=== PATIENT | male | born 1945 | race Caucasian/White ===

== ENCOUNTER 2019-12-31 13:49 | Outpatient (CLI) | payer MEDICARE, SELFPAY ==
--- NOTE | ~2019-12-31 | XR_ITS ---
EXAMINATION: XR hip LT min 2V DATE: 12/31/2019 14:18 INDICATION: Left hip pain. TECHNIQUE: 2 views of left hip were obtained. COMPARISON: None. FINDINGS: Bone alignment is normal. No fracture. There is mild left hip osteoarthritis. IMPRESSION: 1. Mild left hip osteoarthritis. Reviewed, dictated and finalized at location A. ERECTOR
--- NOTE | ~2019-12-31 | XR_ITS ---
XR lumbar spine 2-3V DATE: 12/31/2019 14:18 INDICATION: Left low back pain for 4 days. No known injury. TECHNIQUE: AP, lateral and coned lateral lumbosacral views COMPARISON: 05/16/2017 lumbar spine FINDINGS: Diffuse idiopathic skeletal hyperostosis of the thoracic and lumbar spine. There is severe degenerative disc disease at L5-S1. No fracture or bone destruction or spondylolisthesis. The sacroiliac joints are normal. There is abdominal aortic calcification. IMPRESSION: Diffuse idiopathic skeletal hyperostosis Severe degenerative disc disease at L5-S1 Reviewed, dictated and finalized at location B. [employer]
== END 2019-12-31 13:50 | disposition home or self-care (01) ==
PROVIDERS: PCP Internal Medicine; Visit Provider Nurse Practitioner Family
DX: M25.552 Pain in left hip (principal); M54.5 Low back pain
CPT/HCPCS: 72100; 73502

== ENCOUNTER 2020-01-03 20:57 | Emergency (ER) | payer MEDICARE, SELFPAY ==
[2020-01-03 21:00] VITALS: BP 120/75; PULSE 105; RESP 20; TEMP 35.9; O2SAT 97
--- NOTE | 2020-01-03 21:40 | ED.NAVMDI ---
HPI - Nausea/Vomiting/Diarrhea General Stated complaint: flu? Time Seen by Provider: 01/03/20 21:36 Source: patient and RN notes reviewed Mode of arrival: ambulatory Limitations: no limitations History of Present Illness HPI Narrative: A 74 y/o male presents to the ED with N/V/D for the past 2 days. He states that every time he eats anything he either has N/V or diarrhea since early Saturday morning. He reports a decreased appetite, ABD bloating, and a fever which has since resolved. He notes that he has chronic back pain and that was started on Prednisone this week for a flare up of his spinal stenosis. He denies rectal bleeding, chills, CP, SOB, and any other medical complaints at this time. MD elicited complaint: nausea, vomiting and diarrhea Onset (ago): day(s) (2) Associated nausea: Yes Exacerbating factors: eating Context: new medication (Prednisone) Associated symptoms: fever/chills (fevers resolved, no chills), loss of appetite, bloating and other (chronic back apin) Related Data Allergies Allergy/AdvReac Type Severity Reaction Status Date / Time No Known Allergies Allergy Unverified 01/05/15 16:04 Review of Systems Review of Systems: All systems reviewed & are unremarkable except as noted in HPI and below Constitutional: Constitutional: Denies chills, Denies fatigue, Reports fever(s) (resolved), Denies headache(s), Denies night sweats and Reports poor appetite Eyes: Eyes: Denies change in vision, Denies loss of vision and Denies other visual disturbances ENT: Denies headache(s), Denies hoarseness, Denies epistaxis, Denies nasal congestion and Denies sore throat Cardiovascular: Cardiovascular: Denies chest pain, Denies leg edema, Denies palpitations and Denies dyspnea Respiratory: Respiratory: Denies cough, Denies dyspnea and Denies wheezing Gastrointestinal: Gastrointestinal: Denies abdominal pain, Reports bloating, Denies hematochezia, Reports diarrhea, Reports nausea and Reports vomiting Genitourinary: Genitourinary: Denies hematuria, Denies dysuria and Denies urinary frequency Musculoskeletal: Musculoskeletal: Denies abnormal gait, Reports back pain (chronic), Denies deformity, Denies joint swelling, Denies muscle weakness and Denies numbness Integumentary/Breasts: Skin/Breast: Denies rash, Denies unusual bruising and Denies wounds Neurologic: Denies abnormal gait, Denies headache(s), Denies focal weakness, Denies loss of vision and Denies numbness Psychiatric: Psychiatric: Reports no additional psychiatric complaints Endocrine: Endocrine: Denies fatigue and Denies palpitations Hematologic/Lymphatic: Hematologic/Lymphatic: Denies easy bleeding and Denies easy bruising Allergic/Immunologic: Allergic/Immunologic: Denies wheezing PMFSH Past Medical History Medical History (Updated 01/03/20 @ 23:50 by Kam Salcido MD) Arthritis H/O: HTN (hypertension) History of inguinal hernia History of kidney stones Spinal stenosis Surgical History Surgical History (Updated 01/03/20 @ 21:41 by Raphael Johnson) History of inguinal hernia repair Family History Family History Mother Carcinoma of colon Other Diabetes mellitus Social History Social History Smoking status: Never smoker Alcohol intake: never Gender identity (if verbalized by the patient): Male Comments PCP: Dr. Hurt. Exam Const: General: healthy appearing, no acute distress and well developed Nutritional Appearance: well nourished Orientation/consciousness: patient oriented x3 (alert) and Other orientation findings (Alert) Limitations: no limitations HENMT: Head: normocephalic and atraumatic Ears: external ears normal General nose exam: No nasal discharge present and no epistaxis Face and sinus: face symmetric Mouth: Yes lip normal, Yes tongue normal and Yes moist mucous membranes Throat: other (No exudate, no erythema) Eyes: Conjunctivae:
[2020-01-03] MEDS: KETOROLAC 15 MG/ML VIAL (*BKC) IV PUSH (22:24)
[2020-01-03] MEDS: LACTATED RINGERS 1,000 ML 999 ML IV CONT ×2 (22:24→22:55)
[2020-01-03 22:27] LABS: Alanine Aminotransferase 49 U/L (4-50); Albumin Level 4.2 g/dL (3.5-5.1); Alkaline Phosphatase 90 U/L (38-126); Aspartate Amino Transferase 30 U/L (17-59); Bilirubin,Total 0.6 mg/dL (0.2-1.3); Blood Urea Nitrogen 39 mg/dL (9-20); Calcium 9.9 mg/dL (8.4-10.2); Carbon Dioxide 24 mmol/L (22-30); Chloride 99 mmol/L (98-107); Estimated Glomerular Filt Rate > 60; Glucose 113 mg/dL (75-110); Lipase 38 U/L (23-300); Potassium 3.9 mmol/L (3.4-5.0); Sodium 140 mmol/L (137-145)
[2020-01-03 22:29] LABS: Add Urine Microscopic? NO; Appearance Urine Clear (Clear); Bilirubin Urine Negative (Negative); Blood Urine Negative (Negative); Color Urine Yellow (Yellow); Glucose Urine UA Negative (Negative); Ketones Urine Negative (Negative); Leukocyte Esterase Ur Negative LEU/UL (Negative); Nitrate Urine Negative (Negative); Protein Urine Negative (Negative); Urobilinogen Urine Negative mg/dL (<2.0)
[2020-01-03 22:30] LABS: Specific Grav Ur 1.032 (1.001-1.035)
[2020-01-03 22:31] LABS: Basophils Percent Auto 0.3 % (0.2-1.2); Hematocrit 53.4 % (42.0-52.0); Hemoglobin 17.4 g/dL (14.0-18.0); Immature Granulocyte Absolute 0.04 K/mm3 (0.00-0.031); Immature Granulocyte Percent A 0.3 % (0-0.5); Lymphocytes Absolute Auto 1.28 K/mm3 (0.9-3.2); Lymphocytes Percent Auto 11.1 % (18.3-44.2); Mean Corpuscular HGB Conc 32.6 g/dl (32-36); Mean Corpuscular Hemoglobin 29.8 pg (26-34); Mean Corpuscular Volume 91.6 fl (80-100); Mean Platelet Volume 11.1 fl (7.4-10.4); Monocytes Absolute Auto 1.4 K/mm3 (0.1-0.6); Neutrophils Absolute Auto 8.8 K/mm3 (1.3-6.7); Neutrophils Percent Auto 76.3 % (45.5-73.1); Platelet Count Result 240 k/mm3 (150-375); Red Blood Count 5.83 M/mm3 (4.6-6.20); Red Cell Distribution Width 13.6 % (11.5-14.5); White Blood Count 11.5 K/mm3 (4.5-10.0)
[2020-01-03] MEDS: methocarbamoL 750 MG TABLET PO (22:55)
[2020-01-04] VITALS: BP 137/84; PULSE 73; RESP 15; O2SAT 96
== END 2020-01-04 | disposition home or self-care (01) ==
PROVIDERS: Emergency Provider Emergency Medicine; PCP Internal Medicine
DX: R19.7 Diarrhea, unspecified (principal); M54.9 Dorsalgia, unspecified; G89.29 Other chronic pain; M19.90 Unspecified osteoarthritis, unspecified site; I10 Essential (primary) hypertension; Z87.442 Personal history of urinary calculi
CPT/HCPCS: 36415; 80053; 81003; 83690; 85025; 87804; 96361; 96374; 99284; A9270; J1885; J7120

== ENCOUNTER 2020-02-26 13:10 | Emergency (ER) | payer MEDICARE, SELFPAY ==
--- NOTE | ~2020-02-26 | CT_ITS ---
EXAMINATION: CT brain wo con DATE: 02/26/2020 14:09 INDICATION: Left face numbness. Left arm weakness. TECHNIQUE: Computed tomography (CT) of the head was performed without intravenous contrast. The mA wa s adjusted according to patient size. Iterative reconstruction technique was employed. The dose-lengt h product was 529.67 mGy-cm. COMPARISON: None FINDINGS: There is no intracranial hemorrhage, acute infarction, or abnormal intracranial mass lesion . The ventricles are normal in size. The orbits are normal. There is mild mucosal thickening in the p aranasal sinuses. The mastoid air cells are normal. IMPRESSION: 1. Normal brain. Reviewed, dictated and finalized at location A. IMPRESSION: 1. Normal brain.
[2020-02-26 13:25] VITALS: BP 161/84; PULSE 60; RESP 16; TEMP 36.7; O2SAT 97
--- NOTE | 2020-02-26 13:31 | ED.NEUROSD ---
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 This was about 10:00 a.m. he states that he also noted at that time that his left upper lip was numb as well. Symptoms persist in his lip in his arm however they are to a lesser degree now. Other than a minor head injury a week ago and a mild feeling of being a little light-headed when he stands, he has had no headache, nausea, vomiting, diarrhea, dysuria, chest pain, shortness of breath, diaphoresis. Onset (ago): hour(s) (4) Location: left face and left arm History of same: No Severity: mild Quality: weak (left hand), numb (left arm and lip) and tingling (left arm) Relieving factors: none Exacerbating factors: none Context: sudden onset On Anticoagulants: No Associated symptoms: denies other symptoms Treatments Prior to Arrival: none Related Data Home Medications Medication Instructions Recorded Confirmed celecoxib 100 mg PO BID 02/26/20 02/26/20 losartan 100 mg PO DAILY 02/26/20 02/26/20 testosterone 2 packet TOPICAL DAILY 02/26/20 02/26/20 Allergies Allergy/AdvReac Type Severity Reaction Status Date / Time No Known Allergies Allergy Unverified 01/05/15 16:04 Review of Systems Constitutional: Constitutional: Denies chills, Denies fever(s) and Denies weakness Eyes: Eyes: Denies change in vision and Denies photophobia ENT: Denies dysphagia, Denies nasal congestion and Denies sore throat Cardiovascular: Cardiovascular: Denies chest pain, Denies rapid heart rate, Denies radiating jaw, neck or arm pain and Denies slow heart rate Respiratory: Respiratory: Denies cough, Denies dyspnea and Denies wheezing Gastrointestinal: Gastrointestinal: Denies abdominal pain, Denies diarrhea, Denies nausea and Denies vomiting Genitourinary: Genitourinary: Denies hematuria, Denies dysuria and Denies urinary frequency Musculoskeletal: Musculoskeletal: Reports back pain, Denies arthralgias, Denies joint swelling and Denies muscle cramps Integumentary/Breasts: Skin/Breast: Denies pruritus, Denies erythema and Denies rash Neurologic: Denies vertigo, Reports dizziness and Denies syncope Psychiatric: Psychiatric: Denies anxiety and Denies depression Endocrine: Endocrine: Denies polydipsia and Denies polyuria Hematologic/Lymphatic: Hematologic/Lymphatic: Denies easy bleeding and Denies easy bruising Allergic/Immunologic: Allergic/Immunologic: Denies lip swelling and Denies wheezing PMFSH Past Medical History Medical History Arthritis H/O: HTN (hypertension) History of inguinal hernia History of kidney stones Spinal stenosis Surgical History Surgical History History of inguinal hernia repair Social History Social History Smoking status: Never smoker Alcohol intake: never Gender identity (if verbalized by the patient): Male Exam Const: General: healthy appearing, no acute distress and alert Orientation/consciousness: patient oriented x3 HENMT: Ears: external ears normal, TM's normal bilaterally and EAC's normal Mouth: Yes Normal oral and palatal mucosa present and Yes moist mucous membranes Throat: posterior oropharynx normal and uvula midline Eyes: Conjunctivae: conjunctivae normal Pupils: Equal, round and reactive pupils present EOM: EOMs intact bilaterally Resp: Effort & Inspection: normal respiratory effort and not labored Auscultation: clear to auscultation bilatera
--- NOTE | 2020-02-26 13:46 | ECG_ITS ---
Measurements Intervals [place] Rate: 53 P: 43 DE: 184 QRS: 5 QRSD: 104 T: -11 QT: 426 QTc: 400 Interpretive Statements SINUS BRADYCARDIA EARLY PRECORDIAL R/S TRANSITION VOLTAGE CRITERIA FOR LVH BORDERLINE T WAVE ABNORMALITY- INF/LAT LEADS BASELINE WANDER- II, III BORDERLINE ECG Electronically Signed On 02-26-2020 13:54:22 CDT by Tera Olivarez D.O.
[2020-02-26 14:05] LABS: Basophils Absolute Auto 0.06 K/mm3 (0.00-0.10); Basophils Percent Auto 0.8 % (0.0-1.0); Eosinophils Absolute Auto 0.13 K/mm3 (0.02-0.50); Eosinophils Percent Auto 1.7 % (1.0-6.0); Hematocrit 45.9 % (37.0-46.0); Hemoglobin 15.8 g/dL (12.4-15.3); Immature Granulocyte Absolute 0.02 K/mm3 (0.00-0.00); Immature Granulocyte Percent A 0.3 % (0.0-0.0); Lymphocytes Percent Auto 23.5 % (18.0-42.0); Mean Corpuscular HGB Conc 34.4 g/dL (32.0-36.0); Mean Corpuscular Hemoglobin 31.1 pg (27.0-31.0); Mean Corpuscular Volume 90.4 fL (78.0-102.0); Mean Platelet Volume 10.7 fl (8.7-11.0); Monocytes Absolute Auto 0.55 K/mm3 (0.10-0.90); Monocytes Percent Auto 7.2 % (2.0-11.0); Neutrophils Absolute Auto 5.1 K/mm3 (1.7-7.2); Neutrophils Percent Auto 66.5 % (50.0-70.0); Platelet Count Result 190 K/mm3 (150-420); Red Blood Count 5.08 M/mm3 (4.70-6.10); Red Cell Distribution Width 13.5 % (11.6-14.4); White Blood Count 7.7 K/mm3 (4.8-10.8)
[2020-02-26 14:20] LABS: Partial Thromboplastin Time 29.1 SEC (22.3-31.6); Prothrombin Time 10.2 Seconds (9.64-11.0)
[2020-02-26] MEDS: SODIUM CHLORIDE 0.9% IV 1,000 ML 999 ML IV CONT (14:25)
[2020-02-26 14:26] LABS: Alanine Aminotransferase 41 U/L (16-63); Albumin Level 3.7 g/dL (3.4-5.0); Alkaline Phosphatase 106 U/L (46-116); Aspartate Amino Transferase 25 U/L (15-37); Bilirubin,Total 0.6 mg/dL (0.00-1.00); Blood Urea Nitrogen 11 mg/dL (7-18); Calcium 9.8 mg/dL (8.5-10.1); Carbon Dioxide 27 mmol/L (21-32); Chloride 107 mmol/L (98-108); Estimated CRCL calculation 79 ml/min; Estimated Glomerular Filt Rate > 60; Glucose 122 mg/dL (70-99); Osmolality Calculated 296 mOsm/kg (285-295); Sodium 143 mmol/L (136-145); Total Protein 6.8 g/dL (6.4-8.2)
[2020-02-26 14:32] VITALS: BP 146/74; PULSE 56; RESP 22; O2SAT 96
[2020-02-26 14:38] LABS: Troponin I < 0.02 ng/mL (0.00-0.056)
[2020-02-26 14:48] LABS: Add Urine Microscopic? NO; Appearance Urine Clear (Clear); Bilirubin Urine Negative (Negative); Blood Urine Negative (Negative); Color Urine Yellow (Yellow); Glucose Urine UA Negative (Negative); Ketones Urine Negative (Negative); Leukocyte Esterase Ur Negative LEU/UL (Negative); Nitrate Urine Negative (Negative); Protein Urine Negative (Negative)
--- NOTE | 2020-02-26 15:17 | PC.NURSE ---
Pt requests [facility] in [place] for possible transfer. call placed to [facility].
[2020-02-26] MEDS: ASPIRIN 81 MG CHEWABLE TABLET 324 MG PO (15:40)
[2020-02-26 16:06] VITALS: BP 156/88; PULSE 58; RESP 20; O2SAT 99
--- NOTE | 2020-02-26 16:07 | PC.NURSE ---
Awaiting room assignment from [facility]. pt aware.
[2020-02-26 16:55] VITALS: BP 148/87; PULSE 65; RESP 18; O2SAT 98
== END 2020-02-26 17:32 | disposition short-term general hospital (02) ==
PROVIDERS: Emergency Provider Emergency Medicine; PCP Internal Medicine
DX: I63.9 Cerebral infarction, unspecified (principal); I10 Essential (primary) hypertension
CPT/HCPCS: 36415; 70450; 80053; 81003; 84484; 85025; 85610; 85730; 93005; 96360; 99285; A9270; J7030

== ENCOUNTER 2020-06-25 13:31 | Outpatient (CLI) | payer MEDICARE, SELFPAY ==
--- NOTE | ~2020-06-25 | XR_ITS ---
EXAMINATION: XR chest 2V 06/25/2020 14:05 INDICATION: Cough PROCEDURE: 2 view chest COMPARISON: 01/03/2018 FINDINGS: The lungs are clear. The cardiomediastinal silhouette is within normal limits. There are no pleural effusions. There is no pneumothorax suspected. IMPRESSION: 1: NO ACUTE CARDIOPULMONARY DISEASE. Reviewed, dictated and finalized at location A.
== END 2020-06-25 13:32 | disposition home or self-care (01) ==
LOC: CHSIMG 13:32
PROVIDERS: PCP Internal Medicine; Visit Provider Internal Medicine
DX: R05 Cough (principal)
CPT/HCPCS: 71046

== ENCOUNTER 2020-09-12 07:44 | Outpatient (CLI) | payer MEDICARE, SELFPAY ==
--- NOTE | ~2020-09-12 | CT_ITS ---
EXAMINATION: CT abdomen pelvis wo con DATE: 09/12/2020 08:00 INDICATION: Renal cyst. Adrenal adenoma. TECHNIQUE: Computed tomography (CT) of the abdomen and pelvis was performed without intravenous contr ast. Automated exposure control and iterative reconstruction technique were employed. The dose-length product was 1456.49 mGy-cm. COMPARISON: CT abdomen 08/14/2018 FINDINGS: The visualized portions of the lung bases demonstrate mild atelectasis. There are chronic s ubpleural bands in the lower lobes. There is mild bronchiectasis in right lower lobe. No pleural effu hiral. The heart size is normal. No pericardial effusion. There is a 14 mm cyst in the liver. The gall bladder is normal. Calcifications in the spleen are consistent with old granulomatous disease. The pa ncreas and left adrenal gland are normal. There is a 1.8 cm mass in right adrenal gland measuring low -attenuation without change in size, consistent with an adenoma. There is an 11.3 cm cyst in right ki dney, stable from 08/14/2018. There is a 2.9 cm cyst in right kidney. There is a 12 mm cyst in left ki dney. There is no urolithiasis. The prostate is moderately enlarged. There are bilateral inguinal her nias containing fat. There is diverticulosis of the colon without evidence of diverticulitis. There a re dilated loops of small bowel without focal transition point, likely adynamic ileus. The appendix i s normal. There is trace pelvic ascites. There are no pathologically enlarged lymph nodes. There is s evere lower lumbar spondylosis. IMPRESSION: 1. Stable 1.8 cm right adrenal adenoma. 2. Benign cysts in the kidneys. Reviewed, dictated and finalized at location A.
== END 2020-09-12 07:45 | disposition home or self-care (01) ==
LOC: CHSIMG 07:46
PROVIDERS: PCP Internal Medicine; Visit Provider Urology
DX: D35.00 Benign neoplasm of unspecified adrenal gland (principal); N28.1 Cyst of kidney, acquired
CPT/HCPCS: 74176

== ENCOUNTER 2023-01-21 15:48 | Outpatient (RCR) | payer MEDICARE, SELFPAY ==
--- NOTE | 2023-01-21 16:54 | PTOPEVAL1 ---
Assessment and note entered by Rina Naylor DPT Evaluation Information Assessment Status Evaluation Diagnosis L knee pain, B hip pain Onset 12/12/22 Subjective Information Patient reports he has L knee pain that has been going on for the last few months. He does not recall an injury. He also reports that he has B hip and low back pain but reports the L knee pain is his biggest concern. He reports that he is supposed to use a cane but usually does not use it at home but does bring it with him out of the house. Patient reports he has difficulty with prolonged walking, stair navigation, and getting up out of chairs. Patient is retired but has to care for his home and yard and also works on his vehicles. RTMD 01/21/23 Reported Pain Level Pain Score 1: Self Report Assessment PT Clinical Summary Patient is a 77 year old male who presents to PT with L knee pain and B hip pain with knee pain his biggest compliant. Patient demonstrated decreased B LE strength, decreased B LE hip flexor flexibility and decreased mobility of the L tibiofemoral joint impairing his ability to perform yard work, ambulate prolonged periods and navigate stairs. He would benefit from skilled PT to address impairments and return to PLOF. Plan of Care Interventions Electrical Stimulation,Gait Training,Hot Pack/Cold Pack,Manual Therapy,Mechanical Traction,Neuro Re- education,Patient/Caregiver Educati,Therapeutic Activities,Therapeutic Exercise,Self-Care/Home Management PT Services Indicated Yes Treatment Frequency and 2x weekly for 12 visits Duration These treatments will address the objective and functional deficits as defined above. The patient will be advanced safely and appropriately in order for the patient to progress towards his/her prior level of function. Additional exercises will be introduced and as well as a comprehensive home exercise program upon discharge, if needed, ?to ensure carryover of functional gains achieved in the clinic. This treatment plan has been reviewed and agreement upon by the patient.
== END 2023-02-12 08:48 | disposition home or self-care (01) ==
LOC: CHSPT 15:48
PROVIDERS: PCP Internal Medicine; Visit Provider Physician Assistant Surgical
DX: M17.12 Unilateral primary osteoarthritis, left knee (principal); M16.0 Bilateral primary osteoarthritis of hip
CPT/HCPCS: 97014; 97110; 97140; 97161; 97530; G0283

== ENCOUNTER 2023-01-21 20:06 | Outpatient (CLI) | payer MEDICARE, SELFPAY ==
--- NOTE | 2023-01-27 14:33 | WPDSLEEPSTUD ---
Sleep Study Date of Study: 01/21/23 Ordering Provider: BRIANA Deng Interpreting Physician: Mitzy Sher MD Sleep Study Type: CPAP Titration Height: 1.85 m Weight: 117.934 kg Body Mass Index: 34.2 Neck Circumference (inches): 19 [place]: 11 Reason for Sleep Study Obstructive sleep apnea; he complaints of waking too early in the morning with excessive daytime sleepiness. *11/16/2013 Split night PSG AHI 7, * 12/2013 CPAP titration 2013 with optimal pressure 16 cm CPAP. BMI 34.3. Sleep History Luis Mary is a 77-year-old man with complaints of falling asleep during the day, falling asleep involuntarily and even rarely while driving. He does not awaken from sleep feeling short of breath. he says that he wakes up too early in the morning and wishes that he could sleep longer. While he is asleep he sleeps soundly without awakenings. He does not have nocturia. He does not always awaken feeling refreshed. Infrequently, he takes zolpidem 10 mg for insomnia. He is tired during the day. He takes multiple naps during the day. He does not awaken at night with heartburn, belching or coughing. He does not wake up gasping for breath at night. He does not sweat excessively at night. He does not have loss of muscle tone with strong emotion. He does not feel paralyzed on waking or falling asleep. He does not have vivid dreamlike scenes on waking or falling asleep. He does not feel afraid to go to sleep. He rarely has nightmares. He occasionally remembers his dreams. He occasionally has racing thoughts. He does not feel sad or depressed. He rarely has anxiety. He rarely has muscular tension. He does not notice parts of his body jerking. He does not kick at night. He occasionally has crawling and aching feelings in his legs. He rarely has any kind of leg pain at night. He does not have morning jaw pain. He rarely grinds his teeth during sleep. He frequently is bothered by pain during the day. He rarely is awakened by pain at night. He frequently wakes up feeling stiff in the morning. He occasionally wakes up with sore achy muscles. He frequently wakes up with pain in the spine. He has fatigue and insomnia. Normal bedtime is midnight any awaken sometime between 6 and 7:00 a.m.. The patient takes multiple naps in the day. He is usually drowsy in the morning for 3 hours or longer. He feels better in the evening compared to other times of day. Habits: Never used tobacco. Caffeine 1 - 2 cups per day. No alcohol or recreational substances. [facility] Past Medical History Medical History Arthritis Essential hypertension History of inguinal hernia History of kidney stones Hyperlipidemia Obesity Obstructive sleep apnea Spinal stenosis Surgical History Surgical History History of dental surgery History of inguinal hernia repair Family History Family History Mother Carcinoma of colon Other Diabetes mellitus Social History Social History Smoking status: Never smoker Alcohol intake: never Lack of Transportation: No Lack of Food: Never True Current Housing: I Have Housing Concerned About Future Housing: No Difficulty Paying Gas/Electric Bills: No Difficulty Paying for Meds: No Currently Unemployed: No Education: High School Diploma/GED Difficulty w/ Childcare or Family Care: No Gender identity (if verbalized by the patient): Male Medications Home Medications Medication Instructions Recorded Confirmed Type celecoxib 100 mg capsule 100 mg PO BID 02/26/20 12/12/22 History losartan 100 mg tablet 100 mg PO DAILY 02/26/20 12/12/22 History atorvastatin 20 mg tablet 20 mg PO DAILY 10/15/22 12/12/22 History hydrochlorothiazide 12.5 mg tablet 12.5 mg PO DAILY
[2023-01-27 16:10] VITALS: BMI 34.2
== END 2023-01-22 06:54 | disposition home or self-care (01) ==
PROVIDERS: PCP Internal Medicine; Visit Provider Physician Assistant
DX: G47.33 Obstructive sleep apnea (adult) (pediatric) (principal); Z68.34 Body mass index [BMI] 34.0-34.9, adult
CPT/HCPCS: 95811

== ENCOUNTER 2023-08-19 09:28 | Outpatient (RCR) | payer MEDICARE, SELFPAY ==
--- NOTE | 2023-08-19 10:16 | OPREHPOC ---
Outpatient Therapy Plan of Care This is a Multidisciplinary Plan of Care that may contain components documented by all disciplines (PT, OT, and ST.) PT Problem 1 PT Problem #1 Knowledge Deficit PT Goal 1 Goal Pt. will be independent with a HEP addressing mobility and core strength Target Visit 2 PT Problem 2 PT Problem #2 Pain PT Goal 1 Goal Pt. will reduce pain to 2/10 at worst with prolonged standing activities. Target Visit 12 PT Problem 3 PT Problem #3 Impaired Gait PT Goal 1 Goal Pt. will ambulate with eqal right and left stance time over level surface. Target Visit 12 PT Problem 4 PT Problem #4 Impaired Functional Mobil PT Goal 1 Goal Pt. will improve his Oswestry score by 20% or greater indicating improved overall function. Target Visit 12
--- NOTE | 2023-08-19 10:17 | PTOPEVAL1 ---
Assessment and note entered by Nabil Palacios Evaluation Information Assessment Status Evaluation Diagnosis low back pain Onset 06/05/23 Subjective Information Pt. reports that he underwent knee surgery in May . He reports that since surgery he has had worsening knee and back pain. He describes pain in the area of the left PSIS. he has had xray that revealed spinal stenosis. He can develop pain on the right side of the low back on occasion . He has taken a steroid dose pack with no relief . He reports that pain is worsened with walking and standing. He reports that he can only stand for 5-10 minute before pain begins to increase and forces him to sit. He reports that he enjoys yard work but cannot complete his work due to pain . he reports that his goal is to decrease his back pain. Reported Pain Level Pain Score 2: Self Report Assessment PT Clinical Summary Pt. is a 77 year old male who enters the clinic with low back pain secondary to spinal stenosis. He presents with functional decline, pain, impaired gait, impaired postural awareness, as well as abdominal and proximal l.e. weakness. Continued skilled PT is indicated in order to improve these areas to allow for improved comfort and efficiency with all IADL's. Plan of Care Interventions Electrical Stimulation,Hot Pack/Cold Pack,Manual Therapy,Neuro Re-education,Patient/Caregiver Educati,Therapeutic Activities,Therapeutic Exercise PT Services Indicated Yes Treatment Frequency and 3x/week x 12 visits Duration These treatments will address the objective and functional deficits as defined above. The patient will be advanced safely and appropriately in order for the patient to progress towards his/her prior level of function. Additional exercises will be introduced and as well as a comprehensive home exercise program upon discharge, if needed, ?to ensure carryover of functional gains achieved in the clinic. This treatment plan has been reviewed and agreement upon by the patient.
== END 2023-09-06 23:59 | disposition home or self-care (01) ==
LOC: CHSPT 09:28
DX: M54.50 Low back pain, unspecified (principal); M48.062 Spinal stenosis, lumbar region with neurogenic claudication; M51.37 Other intervertebral disc degeneration, lumbosacral region; M54.16 Radiculopathy, lumbar region; Z68.34 Body mass index [BMI] 34.0-34.9, adult
CPT/HCPCS: 97014; 97110; 97140; 97161; G0283

== ENCOUNTER 2024-06-24 16:49 | Emergency (ER) | payer MEDICARE, SELFPAY ==
[2024-06-24] VITALS (17 sets, daily range): BP systolic 141–177; BP diastolic 73–88; PULSE 86; RESP 16; TEMP 36.5; O2SAT 93–100
--- NOTE | ~2024-06-24 | CT_ITS ---
EXAMINATION: CT abdomen pelvis wo con DATE: 06/24/2024 19:01 INDICATION: Left flank pain and left lower quadrant pain TECHNIQUE: Computed tomography (CT) of the abdomen and pelvis was performed without intravenous contr ast. Automated exposure control and iterative reconstruction technique were employed. The dose-length product was 1488.44 mGy-cm. COMPARISON: 09/12/2020 FINDINGS: Mild dependent atelectasis in bilateral lower lobes. Heart size is normal. Atherosclerotic coronary a rtery calcifications. No pericardial or pleural effusion. 1.2 cm cyst in the left hepatic lobe. Gallb ladder, pancreas and left adrenal gland are normal. Slight increase in size of a now 2.2 x 1.3 cm low -attenuation right adrenal adenoma. Splenic calcification consistent with old granulomatous disease. Bilateral renal cysts including an 11.3 cm cyst in the right kidney. No urolithiasis or hydronephrosi s. Bladder is decompressed. Prostatomegaly. Moderate-sized bilateral fat-containing inguinal hernias. Extensive diverticulosis without adjacent inflammatory change to suggest diverticulitis. Small bowel and appendix are normal. No free intraperitoneal gas or fluid. No pathologically enlarged abdominal or pelvic lymphadenopathy. Severe lower lumbar spondylosis. There are bridging osteophytes at multipl e levels consistent with diffuse idiopathic skeletal hyperostosis (DISH). IMPRESSION: 1. No urolithiasis or acute intra-abdominal/pelvic process. 2. Extensive diverticulosis. 3. Prostatomegaly. 4. Moderate-sized bilateral fat-containing inguinal hernias. Reviewed, dictated and finalized at location A.
--- NOTE | 2024-06-24 18:14 | ED.BACK ---
HPI - Back Pain/Injury General Chief Complaint: Back Pain/Injury <ANA Palmer Last Filed: 06/24/24 18:22> Stated Complaint: n/v, back pain x 2 years <ANA Palmer Last Filed: 06/24/24 18:22> Time Seen by Provider: 06/24/24 18:14 <ANA Palmer Last Filed: 06/24/24 18:22> Focused HPI: Patient is a 78 yo/o male who presents to the ED with c/o L flank and L sided abdominal pain. Patient reports he has frequent pain in his L lower back related to spinal stenosis. Pain began radiating around to her L lower/lateral abdomen today which is not normal for pain. Pain has been severe, in intermittent waves. He c/o nausea associated with the pain, vomiting. Hx of kidney stone but unsure if pain was similar. Has not taken anything for pain today. Denies diarrhea, constipation, fever, dysuria, hematuria. GENERAL: Ill/uncomfortable-appearing, obese with BMI of 34.3, in moderate acute distress d/t pain HEAD: Normocephalic, atraumatic. CHEST: Clear to auscultation. ?No respiratory distress. HEART: Regular rate and rhythm.? ABD: Focal TTP throughout L lower abdomen, tenderness throughout L lateral abdomen, +CVA on L. NEURO: ?Alert and oriented x3. Patient screened in triage and initial orders placed.? ?Additional care and disposition to be based upon?diagnostic testing and treatment. <ANA Palmer Last Filed: 06/24/24 18:22> Source: patient <ANA Palmer Last Filed: 06/24/24 18:22> Mode of arrival: ambulatory <ANA Palmer Last Filed: 06/24/24 18:22> Limitations: no limitations <ANA Palmer Last Filed: 06/24/24 18:22> Related Data Home Medications: Home Medications Medication Instructions Recorded Confirmed celecoxib 100 mg capsule 100 mg PO BID 02/26/20 05/03/23 losartan 100 mg tablet 100 mg PO DAILY 02/26/20 05/03/23 atorvastatin 20 mg tablet 20 mg PO DAILY 10/15/22 05/03/23 hydrochlorothiazide 12.5 mg tablet 12.5 mg PO DAILY 10/15/22 05/03/23 tramadol 50 mg tablet 50 mg PO Q6H PRN 10/15/22 05/03/23 zolpidem 10 mg tablet 10 mg PO QHS PRN 05/03/23 05/03/23 <ANA Palmer Last Filed: 06/24/24 18:22> Allergies/Adverse Reactions: Allergies Allergy/AdvReac Type Severity Reaction Status Date / Time semaglutide [From [facility]] AdvReac Flatulence Verified 06/24/24 19:51 <ANA Palmer Last Filed: 06/24/24 18:22> Review of Systems Review of Systems: All systems as dictated in HPI <ANA Saenz Last Filed: 06/25/24 02:57> [facility] Past Medical History Medical History: Medical History Arthritis Essential hypertension History of inguinal hernia History of kidney stones Hyperlipidemia Obesity Obstructive sleep apnea Spinal stenosis <ANA Palmer Last Filed: 06/24/24 18:22> Surgical History Surgical History: Surgical History History of dental surgery History of inguinal hernia repair <ANA Palmer Last Filed: 06/24/24 18:22> Family History Family History: Family History Mother Carcinoma of colon Other Diabetes mellitus <ANA Palmer Last Filed: 06/24/24 18:22> Social History Social History: Social History Smoking status: Never smoker Alcohol intake: never Lack of Transportation: No Lack of Food: Never True Current Housing: I Have Housing Concerned About Future Housing: No Difficulty Paying Gas/Electric Bills: No Difficulty Paying for Meds: No Currently Unemployed: No Education: High School Diploma/GED Difficulty w/ Childcare or Family Care: No Gender identity (if verbalized by the patient): Male <Roxana N
[2024-06-24] MEDS: HYDROcodone/acetaminophen (*CRX) 5-325 MG TABLET 1 TAB PO (18:28)
[2024-06-24] MEDS: ONDANSETRON INJ 4 MG/2 ML VIAL IV PUSH (18:28)
[2024-06-24 18:38] LABS: Basophils Absolute Auto 0.1 K/mm3 (0.0-0.1); Basophils Percent Auto 0.5 % (0.2-1.2); Eosinophils Percent Auto 0.2 % (0-4.4); Hematocrit 47.8 % (42.0-52.0); Hemoglobin 16.1 g/dL (14.0-18.0); Immature Granulocyte Absolute 0.06 K/mm3 (0.00-0.031); Immature Granulocyte Percent A 0.4 % (0-0.5); Lymphocytes Absolute Auto 1.93 K/mm3 (0.9-3.2); Lymphocytes Percent Auto 12.6 % (18.3-44.2); Mean Corpuscular HGB Conc 33.7 g/dl (32-36); Mean Corpuscular Hemoglobin 30.8 pg (26-34); Mean Corpuscular Volume 91.6 fl (80-100); Mean Platelet Volume 10.8 fl (7.4-10.4); Monocytes Absolute Auto 0.6 K/mm3 (0.1-0.6); Neutrophils Absolute Auto 12.6 K/mm3 (1.3-6.7); Neutrophils Percent Auto 82.3 % (45.5-73.1); Platelet Count Result 213 k/mm3 (150-375); Red Blood Count 5.22 M/mm3 (4.6-6.20); Red Cell Distribution Width 13.6 % (11.5-14.5); White Blood Count 15.3 K/mm3 (4.5-10.0)
[2024-06-24 18:51] LABS: Lactic Acid Reflex 2.2 mmol/L (0.7-2.0)
[2024-06-24 18:52] LABS: Alanine Aminotransferase 30 U/L (6-50); Albumin Level 4.4 g/dL (3.5-5.1); Alkaline Phosphatase 151 U/L (38-126); Anion Gap 11 mmol/L (4-12); Aspartate Amino Transferase 24 U/L (17-59); Bilirubin,Total 0.8 mg/dL (0.2-1.3); Blood Urea Nitrogen 18 mg/dL (9-20); Calcium 10.4 mg/dL (8.4-10.2); Carbon Dioxide 21 mmol/L (22-30); Chloride 105 mmol/L (98-107); Estimated CRCL calculation 52 ml/min; Estimated Glomerular Filt Rate 49; Glucose 154 mg/dL (65-110); Potassium 4.4 mmol/L (3.4-5.0); Sodium 137 mmol/L (137-145)
[2024-06-24] MEDS: SODIUM CHLORIDE 0.9% IV 1,000 ML 999 ML IV CONT (19:46)
[2024-06-24] MEDS: MORPHINE SULFATE (*CRX) 4 MG/ML INJ IV PUSH (20:26)
[2024-06-24 21:31] LABS: Add Urine Microscopic? YES; Appearance Urine Clear (Clear); Bacteria Urine None Seen /hpf; Bilirubin Urine Negative (Negative); Blood Urine 2+ (Negative); Color Urine Yellow (Yellow); Glucose Urine UA Negative (Negative); Ketones Urine Trace mg/dL (Negative); Leukocyte Esterase Ur Negative LEU/UL (Negative); Nitrate Urine Negative (Negative); Non Pathogenic Casts 0-2; Protein Urine Negative (Negative); Specific Grav Ur 1.018 (1.001-1.035); Squamous Epithelial Cell Urine None Seen /hpf (Few); Urobilinogen Urine 0.2 mg/dL (<2.0); WBC Urine 0-5 /hpf (0-3)
[2024-06-24 21:33] LABS: Reflex Lactic Acid Yes or No Add Lactic
[2024-06-24 22:15] LABS: Lactic Acid Reflex 2.2 mmol/L (0.7-2.0)
== END 2024-06-24 22:40 | disposition home or self-care (01) ==
PROVIDERS: Physician Assistant; Emergency Provider Physician Assistant
DX: K40.20 Bilateral inguinal hernia, without obstruction or gangrene, not specified as recurrent (principal); M48.061 Spinal stenosis, lumbar region without neurogenic claudication; I10 Essential (primary) hypertension; E78.5 Hyperlipidemia, unspecified; E66.9 Obesity, unspecified; Z68.34 Body mass index [BMI] 34.0-34.9, adult; G47.33 Obstructive sleep apnea (adult) (pediatric); M19.90 Unspecified osteoarthritis, unspecified site; Z87.442 Personal history of urinary calculi; K57.90 Diverticulosis of intestine, part unspecified, without perforation or abscess without bleeding; N40.0 Benign prostatic hyperplasia without lower urinary tract symptoms
CPT/HCPCS: 36415; 74176; 80053; 81001; 83605; 85025; 96361; 96374; 96375; 99284; A9270; J2270; J2405; J7030

== ENCOUNTER 2024-08-11 11:05 | Outpatient (CLI) | payer MEDICARE, SELFPAY ==
--- NOTE | ~2024-08-11 | XR_ITS ---
XR hip BI wo pelvis Ordering provider: Chris Hurt MD History: . bilateral hip pain,LT>RT,CHRONIC ,NKI . Comparison: None. FINDINGS: BONES: No acute fracture or dislocation. 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 PUBIC SYMPHYSIS: Pubic symphysitis. SOFT TISSUES: Normal. IMPRESSION: No acute osseous abnormality of the bilateral hips and pelvis. Reviewed, dictated and finalized at location A.
== END 2024-08-11 11:06 | disposition home or self-care (01) ==
PROVIDERS: PCP Internal Medicine; Visit Provider Internal Medicine
DX: M25.551 Pain in right hip (principal); M25.552 Pain in left hip
CPT/HCPCS: 73521

== ENCOUNTER 2024-10-05 13:55 | Outpatient (RCR) | payer MEDICARE, SELFPAY ==
--- NOTE | 2024-10-05 15:23 | PTOPEVAL1 ---
Assessment and note entered by Nabil Palacios Evaluation Information Assessment Status Evaluation ICD-10 Condition Codes (PT) Cervicalgia M54.2,Pain in low back M54.50,M54.16 Onset 10/05/23 Subjective Information Pt. reports that he has been experiencing both neck and back pain for about the past year. He describes back pain on the left side of the low back. He reports that pain is mostly noticed with long periods of standing and can only stand for 30 minutes. He states that he will have some pain into the left thigh on occasion. He reports that back pain does not affect his sleep. He reports he is used to being active around his home, but cannot be active due to limited standing from back pain. He reports that neck pain is mostly noticed with sitting and focusing on something. He describes most pain on the right side of the neck and into the right upper trap. He states that he has no numbness in the arm. He reports that it does not affect his sleep, but has mild pain with turning the head to the right. He reports that his goal is to reduce his neck pain. Reported Pain Level Pain Score 2,4: Self Report Assessment PT Clinical Summary Pt. is an 79 year old male who enters the clinic with low back pain and neck pain due to degenerative changes. He presents with impaired lumbar mobility, impaired cervical mobility, impaired postural awareness, proximal l.e. weakness and pain on this date. Continued skilled PT is indicated in order to improve these areas to allow for improved comfort with IADL's and improved standing endurance. Plan of Care Interventions Electrical Stimulation,Hot Pack/Cold Pack,Manual Therapy,Mechanical Traction,Neuro Re-education, Patient/Caregiver Educati,Therapeutic Activities, Therapeutic Exercise PT Services Indicated Yes Treatment Frequency and 2x/week x 8 visits Duration These treatments will address the objective and functional deficits as defined above. The patient will be advanced safely and appropriately in order for the patient to progress towards his/her prior level of function. Additional exercises will be introduced and as well as a comprehensive home exercise program upon discharge, if needed, ?to ensure carryover of functional gains achieved in the clinic. This treatment plan has been reviewed and agreement upon by the patient.
--- NOTE | 2024-10-05 15:25 | OPREHPOC ---
Outpatient Therapy Plan of Care This is a Multidisciplinary Plan of Care that may contain components documented by all disciplines (PT, OT, and ST.) PT Problem 1 PT Problem #1 Knowledge Deficit PT Goal 1 Goal / Goal Update Pt. will be independent with a HEP addressing trunk mobility and postural awareness Target Visit 2 PT Problem 2 PT Problem #2 Pain PT Goal 1 Goal / Goal Update Pt. will report reduction in neck and low back pain to 3/10 at worst with prolonged sitting and standing activities. Target Visit 8 PT Problem 3 PT Problem #3 Impaired Range of Motion PT Goal 1 Goal / Goal Update Pt. will demonstrate ability to reach to the floor indicating improved trunk flexion Pt. will demonstrate safe mechanics with lifting 15# from floor to waist for 5 reps Pt. will demonstrate increase in right rotation of the cervical spine to 70 degrees to improve visual field. Target Visit 8 PT Problem 4 PT Problem #4 Impaired Strength PT Goal 1 Goal / Goal Update Pt. will increase proximal l.e. strength to 5/5 to improve endurance and stability with standing.
--- NOTE | 2024-11-02 11:02 | PTOPDC ---
Assessment and note entered by Nabil Palacios Evaluation Information Assessment Status Discharge ICD-10 Condition Codes (PT) Cervicalgia M54.2,Pain in low back M54.50,M54.16 Onset 10/05/23 Subjective Information Pt. reports that his pain levels continue to fluctuate. He reports that pain increases based upon his activity level. He states that he notices no change despite continuing to complete his exercises. He states that he will return to the doctor next week and his doctor gave the indication that surgery may be necessary due to continued pain. Reported Pain Level Pain Score 2,2: Self Report Assessment PT Clinical Summary Despite improvements in strength and mobility of the trunk and c-spine, pt. continues to provide fluctuating pain reports. He has no change in his Oswestry scrore. He will return to his doctor and discus the possibility of surgery. He will be discharged from our care. Plan of Care PT Services Indicated No
== END 2024-11-02 11:19 | disposition home or self-care (01) ==
LOC: CHSPT 13:55
DX: M48.062 Spinal stenosis, lumbar region with neurogenic claudication (principal); M54.50 Low back pain, unspecified; M54.2 Cervicalgia
CPT/HCPCS: 97014; 97110; 97140; 97161; G0283

== ENCOUNTER 2024-12-02 08:25 | Outpatient (CLI) | payer MEDICARE, SELFPAY ==
--- NOTE | 2024-12-02 08:42 | ECG_ITS ---
Test Date: 2024-12-02 08:51:57 Measurements Intervals [place] Rate: 59 P: 47 WA: 195 QRS: 1 QRSD: 105 T: -3 QT: 409 QTc: 405 Interpretive Statements SINUS BRADYCARDIA MODERATE VOLTAGE CRITERIA FOR LVH, CONSIDER NORMAL VARIANT [MEETS CRITERIA IN ONE OF: R(aVL), S(V1), R(V5), R(V5/V6)+S(V1)] NONSPECIFIC T-WAVE ABNORMALITY No previous ECG available for comparison Electronically Signed On 12-02-2024 15:47:36 STEAM TABLE WORKER by Sam Rivas M.D.
[2024-12-02 08:47] LABS: Basophils Absolute Auto 0.07 K/mm3 (0.00-0.10); Basophils Percent Auto 0.9 % (0.0-1.0); Eosinophils Absolute Auto 0.23 K/mm3 (0.02-0.50); Eosinophils Percent Auto 2.9 % (1.0-6.0); Hematocrit 46.8 % (37.0-46.0); Hemoglobin 15.2 g/dL (12.4-15.3); Immature Granulocyte Absolute 0.02 K/mm3 (0.00-0.00); Immature Granulocyte Percent A 0.3 % (0.0-0.0); Lymphocytes Absolute Auto 2.08 K/mm3 (1.10-4.50); Lymphocytes Percent Auto 26.1 % (18.0-42.0); Mean Corpuscular HGB Conc 32.5 g/dL (32-36); Mean Corpuscular Volume 89.1 fL (78.0-102.0); Mean Platelet Volume 10.2 fl (8.7-11.0); Monocytes Absolute Auto 0.66 K/mm3 (0.10-0.90); Monocytes Percent Auto 8.3 % (2.0-11.0); Neutrophils Absolute Auto 4.92 K/mm3 (1.70-7.20); Neutrophils Percent Auto 61.5 % (50.0-70.0); Platelet Count Result 205 K/mm3 (150-420); Red Blood Count 5.25 M/mm3 (4.70-6.10); Red Cell Distribution Width 13.8 % (11.6-14.4)
[2024-12-02 09:20] LABS: Anion Gap 9 mmol/L (4-12); Blood Urea Nitrogen 20 mg/dL (7-18); Calcium 10.1 mg/dL (8.5-10.1); Carbon Dioxide 25 mmol/L (21-32); Chloride 108 mmol/L (98-108); Estimated Glomerular Filt Rate 52; Glucose 120 mg/dL (70-99); Osmolality Calculated 297 mOsm/kg (285-295); Potassium 4.1 mmol/L (3.5-5.1); Sodium 142 mmol/L (136-145)
== END 2024-12-02 08:26 | disposition home or self-care (01) ==
LOC: CHSLAB 08:29
PROVIDERS: PCP Internal Medicine
DX: Z01.818 Encounter for other preprocedural examination (principal); M47.812 Spondylosis without myelopathy or radiculopathy, cervical region; R00.1 Bradycardia, unspecified
CPT/HCPCS: 36415; 80048; 85025; 93005

== ENCOUNTER 2024-12-30 08:27 | Outpatient (RCR) | payer MEDICARE, SELFPAY ==
--- NOTE | 2024-12-30 09:26 | PTOPEVAL1 ---
Assessment and note entered by Nabil Palacios Evaluation Information Assessment Status Evaluation ICD-10 Condition Codes (PT) Pain in low back M54.50,Radiculopathy, lumbar region M54.16 Onset 12/08/24 Subjective Information Pt. reports that he underwent back surgery on 12/08. He states that he developed recent problems with his neck. He states that he has constant pain down the right side of the neck and into the area of the shoulder. He had a recent MRI of the neck, but is unsure of the results. He states that he has been limited in regards to lifting, due to 5# restriction post surgery. He states he is not currently doing any formal exercise. He states that his neck pain is not constant and most notable with turning his head to the right side. He states that his goal is to improve his strength and decrease his neck pain. Reported Pain Level Pain Score 1: Self Report Assessment PT Clinical Summary Pt. is an 79 year old male who enters the clinic with a medical diagnosis of neck pain, back pain and l.e. weakness. He presents with indication of degenerative changes at the lumbar and cervical spine, reduced core strength, l.e. and u.e. weakness, right shoulder impingement and pain. Continued skilled PT is indicated in order to improve these areas to allow the pt. to be able to complete all IADL's with improved efficiency and comfort. Plan of Care Interventions Electrical Stimulation,Gait Training,Hot Pack/Cold Pack,Manual Therapy,Patient/Caregiver Education, Therapeutic Activities,Therapeutic Exercise PT Services Indicated Yes Treatment Frequency and 2x/week x 12 visits Duration These treatments will address the objective and functional deficits as defined above. The patient will be advanced safely and appropriately in order for the patient to progress towards his/her prior level of function. Additional exercises will be introduced and as well as a comprehensive home exercise program upon discharge, if needed, ?to ensure carryover of functional gains achieved in the clinic. This treatment plan has been reviewed and agreement upon by the patient.
--- NOTE | 2024-12-30 09:27 | OPREHPOC ---
Outpatient Therapy Plan of Care This is a Multidisciplinary Plan of Care that may contain components documented by all disciplines (PT, OT, and ST.) PT Problem 1 PT Problem #1 Knowledge Deficit PT Goal 1 Goal / Goal Update Pt. will be independent with a HEP addressing posture and strength Target Visit 2 PT Problem 2 PT Problem #2 Impaired Range of Motion PT Goal 1 Goal / Goal Update Pt. will improve right cervical spine rotation to 75 degrees Target Visit 12 PT Problem 3 PT Problem #3 Impaired Functional Mobility PT Goal 1 Goal / Goal Update Pt. will demonstrate ability to participate in 30 minutes of standing ckc exercise in order to improve standing endurance. Target Visit 12 PT Problem 4 PT Problem #4 Impaired Strength PT Goal 1 Goal / Goal Update Pt. will demonstrate 5/5 proximal l.e. strength and proximal u.e. strength Pt. will be able to safely lift 5-10# object from floor to waist without pain and safe mechanics. Target Visit 12
== END 2025-03-30 23:59 | disposition home or self-care (01) ==
LOC: CHSPT 08:27
DX: M54.2 Cervicalgia (principal); M48.062 Spinal stenosis, lumbar region with neurogenic claudication
CPT/HCPCS: 97110; 97140; 97161

== ENCOUNTER 2025-03-09 10:27 | Outpatient (CLI) | payer MEDICARE, SELFPAY ==
--- NOTE | ~2025-03-09 | MMUS_ITS ---
EXAMINATION: MM diagnostic jonathan LT w jess, US breast LT limited HISTORY: Palpable left breast mass TECHNIQUE: Additional 3-D tomosynthesis images of the breasts were performed and synthetic 2-D images were generated. CAD analysis was submitted and interpreted. High resolution Limited left breast ultr asound was performed. COMPARISON: None BREAST PARENCHYMAL COMPOSITION: Not dense: There are scattered areas of fibroglandular density. FINDINGS: MAMMOGRAPHIC FINDINGS: There is bilateral asymmetric gynecomastia, left greater than right. No suspicious masses, architectu ral distortion or clustered calcifications to suggest malignancy. ULTRASOUND: Limited left breast ultrasound: There is hypoechoic soft tissue in the subareolar location of the lef t breast, consistent with gynecomastia. No discrete mass identified. IMPRESSION: 1. No evidence for malignancy in either breast. Benign asymmetric gynecomastia. 2. Recommend clinical management of gynecomastia. BI-RADS Category 2: Benign finding(s). Reviewed, dictated and finalized at location B. IMPRESSION: 1. No evidence for malignancy in either breast. Benign asymmetric gynecomastia. 2. Recommend clinical management of gynecomastia. BI-RADS Category 2: Benign finding(s).
--- OUTSIDE RECORDS SUMMARY | 2025-03-09 11:26 | XMS_ITS | Encounter Summary ---
Author Organization [facility] Address [address] [place] [address] Care Team Providers Care Maternity Floor Supervisor Name Role Phone Adolfo Goyal MD Primary Care Provider Encounter Details Date Type Department Care Team (Late st Contact Info) Description 01/21/2004 Outpatient Historical [facility] Internal Medicine - [address] [place] [address] Adolfo Goyal MD [address] [place] [address] Social History Tobacco Use Types Packs/Day Years Used Date Smoking Tobacco: Never Assessed Sex and Gender Information Value Date Recorded Sex Assigned at Not on file Legal Sex Male 3:15 AM [employer] EX[employer] Gender Identity Not on file Sexual Orientation Not on file documented as of this encounter Plan of Treatment Not on file documented as of this encounter Visit Diagnoses Not on filedocumented in this encounter Care Teams Maternity Floor Supervisor Relationship Specialty Start Date End Date Adolfo Goyal MD [address] [facility] [address] [place] [address] PCP - General 03/22/07 03/16/21 documented as of this encounter
--- OUTSIDE RECORDS SUMMARY | 2025-03-09 11:26 | XMS_ITS | Encounter Summary ---
Author Organization [facility] Address [address] [place] [address] Care Team Providers Care Cell Tower Climber Name Role Phone Adolfo Goyal MD Primary Care Provider Encounter Details Date Type Department Care Team (Late st Contact Info) Description 02/28/2007 Outpatient Historical [facility] Internal Medicine - [address] [place] [address] Adolfo Goyal MD [address] [place] [address] Social History Tobacco Use Types Packs/Day Years Used Date Smoking Tobacco: Never Assessed Sex and Gender Information Value Date Recorded Sex Assigned at Not on file Legal 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
--- OUTSIDE RECORDS SUMMARY | 2025-03-09 11:26 | XMS_ITS | Continuity of Care Document ---
Author Organization [facility] Address [id number] [place] [address] [address] [place] [address] Phone Care Team Providers Care Bar Waiter/Waitress Name Role Phone Jw OD OD, Brenda Unavailable Unavai lable Allergies, Adverse Reactions, Alerts Substance Reaction Status Criticality No Known Allergies Active No Inform ation Medications Medication Instructions Dosage Effective Dates (start - stop) Status Comments Diovan 160 mg tablet take 1 tablet (160MG) by oral route every day 160 MG - Active prednisolone sod phos 1 %-moxifloxacin 0.5 %-bromfen 0.075 % eye drops INSTILL 1 DROP INTO OPERATIVE EYE 3 TIMES A DAY FOR WEEK 1 & 2 AFTER SURGERY - No Longer Active OFFICE DROPS PURPLE CAP prednisolone acetate 1 %-bromfenac 0.075 % eye drops,suspension INSTILL 1 DROP INTO OPERATIVE EYE 2 TIMES A DAY FOR WEEK 3 & 4 AFTER SURGERY - No Longer Active OFFICE DROPS GREEN CAP Procedures Procedure Date EYE EXAM & TREATMENT REFRACTION POSTOP FOLLOW-UP VISIT POSTOP FOLLOW-UP VISIT CATARACT SURG W/IOL, 1 STAGE POSTOP FOLLOW-UP VISIT POSTOP FOLLOW-UP VISIT CATARACT SURG W/IOL, 1 STAGE PHARMACY IMPRIMIS OFFICE/OUTPATIENT VISIT, EST [facility] EXTND RTA DRAW UNI/BI EYE EXAM & TREATMENT EYE EXAM ESTABLISHED PAT OFFICE/OUTPATIENT VISIT, EST [facility] EXTND RTA DRAW UNI/BI OFFICE/OUTPATIENT VISIT, NEW OFFICE/OUTPATIENT VISIT, EST OFFICE/OUTPATIENT VISIT, NEW REFRACTION Advance Directives Directive Yes / No Effective Date File Name No Information Encounters Encounter Description Practice Location Reason(s) For Visit Diagnoses Date Provider Providers Copied on Encounter [facility], [address] [place] [address], [id number], tel:[phone] OPH CONSULT JAYME COPELAND Pseudophakic (chief complaint) PresbyopiaEy e exam, routine Sep-0 - 4 Derheimer OD Brenda. [address] [facility] [address] [facility], [address], [place], [place], [id number], [place]. tel:[phone] Referring Provider: Chris Hurt MD, [address] [place], [address]. tel:[phone] [facility], [address] [place] [address], [id number], tel:[phone] OPH CONSULT JAYME COPELAND 1 week PO OS (chief complaint) Presence of intraocular lens Dec-0 3 Derheimer OD Brenda. [address] [facility], [address], [place], [place], [id number], [place]. tel:[phone] Referring Provider: Chris Hurt MD, [address] [place], [address]. tel:[phone] [facility], [address] [place] [address], [id number], [place] tel:[phone] OPH CONSULT JAYME COPELAND 1 Day Post op (chief complaint) Age-related nuclear cataract, bilateral Sep-3 0- 3 Skinner Rose. [address] [place] [address], [address] [facility], [place], [address], [place]. tel:[phone] Referring Provider: Chris Hurt MD, [address] [place], [address]. tel:[phone] [facility], [address], [id number], [place] tel:[phone] [facility] [place] No Information Nov-2 3 Miguel Mata. [address], [address], [place], [place], [id number], [place]. tel:[phone] Referring Provider: Chris Hurt MD, [address] [place], [address]. tel:[phone] [facility], [address] [place] [address] [address], [id number], [place] tel:[phone] OPH CONSULT JAYME COPELAND post op (chief complaint) Presence of intraocular lens Sep- 0- 3 James aPte. [address], [address], [place], [address], [place]. tel:[phone] Referring Provider: Chris Hurt MD, [address] [place], [address]. tel:[phone] [facility], [address] [place] [address], [id number], [place] tel:[phone] OPH CONSULT JAYME COPELAND 1 Day post op (chief complaint) Presence of intraocular lens Nov-0 3 Brody Rose. [address] [facility], [address], [place], [address], [place]. tel:[phone] Referring Provider: Chris Hurt MD, [address] [place], [address]. tel:[phone] [facility], [address] [place] [address], [id number], [place] tel:[phone] [facility] [place] No Information Sep-0 3 Miguel Mata. [address], [address], [place], [place], [id number], [place]. tel:[phone] Referring Provider: Chris Hurt MD, [address] [place], [address]. tel:[phone] [facility], [address] [place] [address], [id number], [place] tel:[phone] OPH CONSULT JAYME COPELAND No Information 3 Miguel Mata. [address], [address], [place], [place], [id number], [place]. tel:[phone] Referring Provider: Chris Hurt MD, [address] [place], [address]. tel:[phone] OFFICE/OUTPA TIENT VISIT, EST [facility], [address] [place] [address], [id number], tel:[phone] OPH CONSULT JAYME COPELAND Cataracts (chief complaint) Age-related nuclear cataract, bilateralVit reous degeneration , bilateralTea r film insufficienc y, bilateral March- 3 Derheimer OD Brenda. [address], [address], [place], [place], [id number], [place]. tel:[phone] Referring Provider: Chris Hurt MD, [address] [place], [address]. tel:[phone] [facility], [address] [place] [address], [id number], [place] tel:[phone] OPH CONSULT JAYME COPELAND blurry vision (chief complaint) PresbyopiaAg e-related nuclear cataract, bilateralVit reous degeneration , bilateralTea r film insufficienc y, bilateral 2 Derheimer OD Brenda. [address], [address], [place], [place], [id number], [place]. tel:[phone] Referring Provider: Chris Hurt MD, [address] [place], [address]. tel:[phone] [facility], [address] [place] [address], [id number], [place] tel:[phone] OPH CONSULT JAYME COPELAND cataract check (chief complaint) Age-related nuclear cataract, bilateralVit reous degeneration , bilateralPre sbyopia 1 James Pate. [address], [address], [place], [address], [place]. tel:[phone] Referring Provider: Family Friends A. OFFICE/OUTPA TIENT VISIT, EST [facility], [address] [place] [address], [place], [place], [id number], [place] tel:[phone] O[facility] CON[facility]ULT [facility] floaters (chief complaint) Age-related nuclear cataract, bilateralDry eye syndrome of bilateral lacrimal glandsDermat ochalasis of left upper eyelidDermat ochalasis of right upper eyelidVitreo us degeneration , bilateral 0 Derheimer OD Brenda. [address], [address], [place], [place], [id number], [place]. tel:[phone] Referring Provider: Herlinda Anton, [address], [place], [address]. tel:[phone] OFFICE/OUTPA TIENT VISIT, NEW [facility], [address] [place] [address], [place], [place], [id number], [place] tel:[phone] OPH CONSULT JAYME COPELAND cataract check (chief complaint) Age-related nuclear cataract, bilateralDer matochalasis of left upper eyelidDermat ochalasis of right upper eyelidDry eye syndrome of bilateral lacrimal glandsVitreo us degeneration , left eyeOther vitreous opacities, right eye 8 Derheimer OD Brenda. [address], [address], [place], [place], [id number], [place]. tel:[phone] Referring Provider: Brenda Escalera OD, [address], [place], [address]. tel:[phone] OFFICE/OUTPA TIENT VISIT, EST [facility], [address] [place] [address] [address], [place], [place], [id number], [place] tel:[phone] OPH CONSULT JAYME COPELAND Other vitreous opacitiesSen ile nuclear sclerosisPre sbyopia 4 James Pate. [address], [address], [place], [address], [place]. tel:[phone] Referring Provider: Herlinda Anton, [address], [place], [address]. tel:[phone] OFFICE/OUTPA TIENT VISIT, NEW [facility], [address], [place], [place], [id number], [place] tel:[phone] OPH CONSULT JAYME COPELAND Senile nuclear sclerosisOth er vitreous opacities 3 Ivanna Quiñones. [address] [facility], [address], [place], [address], [place]. tel:[phone] Referring Provider: Ishmael Koo, [address] [facility] [address], [place], [address]. tel:[phone] Family History Family Member Type Diagnosis Age At Onset Problem (finding) No family history of Hy pertension Problem (finding) No family hist ory of Macular degeneration Problem (finding) No family history of Gl aucoma Problem (finding) No family history of Di abetes mellitus Payers Payer name Insurance type Covered libertarian ID Authorhernandeza nitish(s) [employer] Medicare CI [id number] [employer] CI [id number] Social History Type Description Quantity Date Captured Comments Alcohol Use Details Caffeine Use Details No Tobacco Use Status Current non-smoker Smoking Status Never smoker Non-Smoking Tobacco Use Details : No Details Available : No Details Available Sex Male Chief Complaint And Reason For Visit From encounter dated '07/31/2024 11:55'. Pseudophakic (chief complaint). 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 Patient had cataract surgery about 9 month(s) ago. The condition is constant. The condition is stable. S/p CEIOL OU, Stnd Dist c JG 09/2024. Patient is happy withcurrent vision. 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 Patient had cataract surgery about 9 month(s) ago. The condition is constant. The condition is stable. S/p CEIOL OU, Stnd Dist c JG 09/2024. Patient is happy with current vision. 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 1 week PO OS 1 week PO OS3 we ek PO OD STD/distance OU. He states his VA is good. Eyes are comfortable OU. OC PATIENT. He continues to use Compound drops as directed. 1 Day Post op The 78 year old male presents for evaluation of 1 Day Post op OS, ST DV. Using compound gtts as scheduled, TID. Vision is doing better, just a little fuzzy. No pain or discomfort.OD done 09/25/2023 ST [facility] Patient post op The 78 year old male presents for 1 week post op of 1st cat sx, OD-STD/DV, vision has been pretty good, the only problem is if he should wear his eyeglasses or not. Denies pain/discomfort, eyes are feeling comfortable today. OS scheduled 10/23/[address] Martin [id number] and AT, might need another refill of compoundIf he runs a day or two short on [id number] should he just switch to pred-brom?OC patient 1 Day post op The 78 year old male presents for evaluation of 1 Day post op OD, ST DV. Using Ntot-Tdly-Iatk TID. No pain or discomfort. Vision is still a little blurry, can't read small print. OS scheduled 10/23/2023 [facility] Patient Cataracts The 77 year old male presents for evaluation of Cataracts.Denies any irritation or dryness with the eyes. Denies any use of gtts. Pt denies any new or noticeable floaters. Pt feels vision has decreased OD>OS difficulty with glare and night driving. blurry vision The 76 year old male presents for evaluation of blurry vision. Patient denies any vision changes but states OD feels different. Patient's VAs for OD have changed in the last year. States he would like glasses if he's not ready for sx. Basically wants to know what DM thinks regarding cataract OD to determine if he was glasses or sx. Patient states OD is still blurry with MR today. MAC OCT ordered per cataract check The 75 year old male presents for evaluation of cataract check in the right eye and left eye. It started about 1 year(s) ago. The symptom is constant. The condition is stable. Pt reports to notice no changes to vision since last visit. Pt is happy w/ current glasses. Pt sees an occasional floaters and denies flashes of light. Currently using no gtts. floaters The 74 year old male presents for an annual exam. Patient reports vision OU seems good - stable since last exam. Reports no new FOL or floaters. Happy w/ current glasses. cataract check The 72 year old male presents for evaluation of cataract check in the right eye and left eye. Last exam was about 4 year(s) ago. It affects VA not affected. The symptom is constant. The condition is stable. Pt reports he sees well at distance and near OU with present glasses. Pt denies any dryness or irritation OU and does not use any gtts. PT denies any flashes of light or floaters OU. 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, bilateral Impression/Plan Related to Presb yopia Impression/Plan Related to Vitre ous degeneration, bilateral Impression/Plan Related to Age-r elated nuclear cataract, bilateral Impression/Plan 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, bilateral Impression/Plan Related to Vitre ous degeneration, bilateral Impression/Plan Related to Age-r elated nuclear cataract, bilateral Impression/Plan Related to Presb yopia Impression/Plan Related to Age-r elated nuclear cataract, bilateral Impression/Plan Related to Dry e ye syndrome of bilateral lacrimal glands Impression/Plan 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 New Rx w/o CYL. (take out cyl) Related to Presbyopia Senile nuclear scler osis OU - Discussed diagnosis in detail with patient. Discussed treatment options with patient. No treatment is required at this time. Will continue to observe condition and or symptoms. Call if VA worsens. Related to Senile nuclear sclerosis Other vitreous opaci ties OU - Discussed diagnosis in detail with patient. Will continue to observe condition and or symptoms. Discussed signs and symptoms of retinal detachment. Discussed signs and symptoms of PVD/floaters. Patient instructed to call if condition gets worse. Related to Other vitreous opacities - Return in 1 year w arash Ramirez OD for Complete Exam. Related to Other vitreous opacities Vitreous Floaters OU - Discussed diagnosis in detail with patient. No treatment is required at this time. Will continue to observe condition and or symptoms. Discussed signs and symptoms of PVD/floaters. Patient instructed to call if condition gets worse. Related to Vitreous Floaters Cataract, Nuclear Sc lerosis OU-trace - Cataracts account for the patient's complaints. No treatment currently recommended. The patient will monitor vision changes and contact us with any decrease in vision. Educational materials provided:Cataract.Updated glasses Rx today. Related to Cataract, Nuclear Sclerosis - Return in 1 year w arash Goncalves MD for Complete Exam. Related to Cataract, Nuclear Sclerosis Assessments Type Assessment Date assessment Presbyopia impression Presbyopia: H52.4 assessment Eye exam, routine impression Eye exam, routine: Z01.00 Patient Care Teams Name Effective Dates (start - stop) Status Members No Information
--- OUTSIDE RECORDS SUMMARY | 2025-03-09 11:26 | XMS_ITS | Encounter Summary ---
Author Organization [facility] Address [address] [place] [address] Care Team Providers Care Yard Assistant Name Role Phone Adolfo Goyal MD Primary Care Provider Encounter Details Date Type Department Care Team (Latest Contact Info) Description 02/13/[address] 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5 % [facility] MCV 90.3 82.0 - 99.0 fL [facility] PLATELETS 229 140 - 350 K/uL [facility] HEMOGLOBIN 15.4 13.6 - 16.5 g/dL [facility] RDW 13.9 11.5 - 14.5 % [facility] WBC 7.7 4.0 - 9.8 K/uL [facility] MCH 29.3 27.2 - 32.6 pg [facility] MPV 12.5(H) 9.3 - 12.4 fL [facility] HEMATOCRIT 47.5 40.0 - 48.0 % [facility] RDW-STDEV 45.5 37.1 - 48.7 fL [facility] MONOCYTES 7 3 - 13 % [facility] MONOCYTE ABSOLUTE 0.50 0.10 - 1.30 K/uL [facility] NEUTROPHILS 65 45 - 70 % [facility] NEUTROPHIL ABSOLUTE 5.02 1.90 - 7.00 K/uL [facility] EOSINOPHILS 1 0 - 7 % [facility] EOSINOPHIL ABSOLUTE 0.10 0.00 - 0.70 K/uL [facility] LYMPHOCYTES 26 16 - 45 % [facility] LYMPHOCYTE ABSOLUTE 2.03 0.70 - 4.50 K/uL [facility] BASOPHILS 1 0 - 2 % [facility] BASOPHILS ABSOLUTE 0.04 0.00 - 0.20 K/uL [facility] Blood specimen (specimen) 02/13/2008 8:03 PM CDT 02/13/2008 8:04 PM CDT us Adolfo Goyal MD HEMATOLOGY ORDERABLES Edite d INTERFACE SYSTEM Refer to clinic/hospital department [facility] [address] [place] [address] * (ABNORMAL) COMPREHENSIVE METABOLIC PANEL (02/13/2008 8:03 PM CDT) TOTAL PROTEIN 7.0 6.3 - 8.6 g/dL [facility] POTASSIUM 4.4 3.5 - 4.9 mmol/L [facility] GLUCOSE 116(H) 65 - 99 mg/dL [facility] AST 22 12 - 38 U/L [facility] BUN 15 6 - 20 mg/dL [facility] CALCIUM 9.5 8.4 - 10.2 mg/dL [facility] CHLORIDE 102 96 - 108 mmol/L [facility] ALBUMIN 4.3 3.4 - 4.8 g/dL [facility] CREATININE 0.87 0.67 - 1.17 mg/dL [facility] SODIUM 136 135 - 145 mmol/L [facility] ALT 36 0 - 41 U/L [facility] ALKALINE PHOSPHATASE 99 40 - 129 U/L [facility] BILIRUBIN TOTAL 0.4 0.2 - 1.0 mg/dL [facility] CO2 23 22 - 30 mmol/L [facility] GFR, >60 >=60 mL/min/1. 7 sq meter [facility] GFR >60 >=60 mL/min/1. 7 sq meter [facility] Comment: Estimated GFR rate interpretative information for both Americans and non- Americans is available on the [facility] Intranet at: [email or web address] Select: Lab Policies and Procedures Select: Reference Ranges - GFR Blood specimen (specimen) 02/13/2008 8:03 PM CDT 02/13/2008 8:03 PM CDT Adolfo Goyal MD CHEMISTRY ORDERABLES Edited Performing Organization Address City/[facility]/ZIP Co de Phone Number [facility] [address] [place] [address] * (ABNORMAL) LIPID PANEL (02/13/2008 8:03 PM CDT) HDL 31(L) 40 - 59 mg/dL [facility] CHOLESTEROL 188 100 - 199 mg/dL [facility] TRIGLYCERIDE 122 10 - 149 mg/dL [facility] CHOL/HDL RATIO 6.1(H) 2.0 - 5.0 [facility] LDL CALCULATED 133(H) <=99 mg/dL [facility] LIPID PANEL COMMENT See Below [facility] Comment: The adult ATP and pediatric NCEP classifications for lipids are available on the [facility] Intranet at: [email or web address] Select: Lab Policies and Procedures,Current Select: Lipid Panel Interpretation Blood specimen (specimen) 02/13/2008 8:03 PM CDT 02/13/2008 8:03 PM CDT Adolfo Goyal MD CHEMISTRY ORDERABLES Edited [facility] [address] [place] [address] * PSA (02/13/2008 8:03 PM CDT) PSA 0.6 0.0 - 4.0 ng/mL [facility] Comment:ansiPerformed on Jake he Modular E170 System Blood specimen (specimen) 02/13/2008 8:03 PM CDT 02/13/2008 8:03 PM CDT Adolfo Goyal MD CHEMISTRY ORDERABLES Edited [facility] [address] [place] [address] documented in this encounter Visit Diagnoses Diagnosis Essential hypertension, benign documented in this encounter Care Teams Yard Assistant Relationship Specialty Start Date End Date Adolfo Goyal MD [address] [place] [id number] PCP - General 03/22/07 03/16/21 documented as of this encounter
--- OUTSIDE RECORDS SUMMARY | 2025-03-09 11:26 | XMS_ITS | Encounter Summary ---
Author Organization [facility] Address 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
--- OUTSIDE RECORDS SUMMARY | 2025-03-09 11:26 | XMS_ITS | Encounter Summary ---
Author Organization [facility] Address [address] [place] [address] Care Team Providers Care Youth Development Professional Name Role Phone Adolfo Goyal MD Primary Care Provider [phone] Encounter Details Date Type Department Care Team (Late st Contact Info) Description 08/15/2004 Outpatient Historical [facility] Internal Medicine - [place] [address] [place] [address] Adolfo Goyal MD [address] [place] [address] Social History Tobacco Use Types Packs/Day Years Used Date Smoking Tobacco: Never Assessed Sex and Gender Information Value Date Recorded Sex Assigned at Not on file 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
--- OUTSIDE RECORDS SUMMARY | 2025-03-09 11:26 | XMS_ITS | Encounter Summary ---
Author Organization [facility] Address [address] [place] [address] Care Team Providers Care Therapeutic Case Manager Name Role Phone Adolfo Goyal MD Primary Care Provider Encounter Details Date Type Department Care Team (Late st Contact Info) Description 02/28/2007 Orders Only [facility] Internal Medicine - [place] [address] [place] [address] Adolfo Goyal MD [address] [facility] [address] [place] [address] Social History Tobacco Use Types Packs/Day Years Used Date Smoking Tobacco: Never Assessed Sex and Gender Information Value Date Recorded Sex Assigned at Not on file Legal 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 MEDICATIONS: Medication list current. CHIEF COMPLAINT Seen for a preventive examination. discuss hearing sore spot on side of left knee mole on forehead and on left hand HISTORY: HISTORY: 401.1-HYPERTENSION ESSENTIAL BENIGN The patient`s weight is the same. The patient is somewhat compliant with diet. The patient denies chest pain, shortness of breath, dyspnea on exertion, pedal edema, or headache. The patient is tolerating the medication. Labs will be obtained for this patient. Theblood pressure readings taken outside the office since the last visit have improved and are now controlled in the target range. 477.8-ALLERGIC RHINITIS The allergic rhinitis symptoms have improved. The patient denies sneezing, rhinorrhea, coryza, and watery eyes. No complications noted from the medication presently being used. ROS: GENERAL: Normal activity and energy level, no change in appetite. No major weight gain or loss. No malaise, chills, fever, diaphoresis.. ENT: No hearing loss, epistaxis, hoarseness or dysphagia. No sinus congestion.. ENDOCRINE: No heat or cold intolerance, no excessive thirst.. CARDIAC: No chest pain, palpitations, orthopnea, dyspnea on exertion, or paroxysmal nocturnal dyspnea.. RESPIRATORY: No dyspnea, cough, hemoptysis or wheezing.. : No dysuria or hematuria.. GI: No abdominal pain, nausea, vomiting, diarrhea, constipation, melena, or hematochezia.. PAST MEDICAL HISTORY: MEDICAL: Hypertension. FAMILY HISTORY: FATHER: MOTHER: Illnesses: Cancer. SOCIAL HISTORY: TOBACCO USE: Has no significant smoking history. 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 PHYSICAL EXAMINATION: CONSTITUTIONAL: GENERAL APPEARANCE: Healthy appearing patient in no distress. EARS, NOSE, MOUTH AND THROAT: EXTERNAL/EARS AND NOSE: Overall appearance normal with no scars, lesions or masses. EARS: Tympanic membranes shiny without retraction. Canals unremarkable. Hearing grossly normal. NOSE (AND SINUS): No abnormality of the nose or sinuses is noted. ORAL: Inspection of gums, lips, palate, and teeth normal. No scars, lesions, or masses. Oral mucosaunremarkable with non-inflamed posterior pharynx. NECK/THYROID: Trachea midline. No thyroid enlargement, tenderness, or mass. No supraclavicular or cervical adenopathy. RESPIRATORY: Clear to auscultation and percussion. Normal respiratory effort. CARDIOVASCULAR: CARDIAC: Regular rhythm. No murmurs, rubs, or gallops. EDEMA/VARICOSITIES OF EXTREMITIES: No edema or varicosities. GASTROINTESTINAL: ABDOMEN: Soft, non-tender, without masses. Bowel sounds active. LIVER/SPLEEN/KIDNEY: No hepatosplenomegaly, tenderness or nodularity. Kidneys not palpable. GENITOURINARY: SCROTUM/CONTENTS: Normal in appearance with no hydrocele, spermatocele, tenderness of cord, or testicular mass. PROSTATE: 1+ ENLARGED. SKIN: multiple solar keratosis one possible bcca on face ASSESSMENT/PLAN: 401.1-HYPERTENSION ESSENTIAL BENIGN LAB ORDERS: Order number: [id number] Test Ordered: CBC W/ DIFFERENTIAL 3150 Order number: [id number] Test Ordered: COMPREHENSIVE METABOLIC PANEL & GFR 1112 Order number: [id number] Test Ordered: LIPID PANEL 1078 Order number: [id number] Test Ordered: PSA, TOTAL 1002 844.9-SPRAINS AND STRAINS OF KNEE AND LEG LAB ORDERS: Order number: [id number] Test Ordered: XRAY KNEE, ROUTINE, LEFT (3 VIEWS) 709.9-SKIN LESION UNSPECIFIED see derm SPECIALTY REFERRAL: DERMATOLOGY Dr. Nathan Zarate ph. [phone] fax: [phone]. HEALTH MAINTENANCE: LAST PROSTATE EXAM: unk. PROSTATE EXAM PROVIDER: unk. LAST DATE PSA DONE: unk. DISCUSSED SMOKING: neg. LAST TD: unk SEXUAL ACTIVITY DISCUSSED: pos. SUBSTANCE ABUSE DISCUSSED: neg. INJURY PREVENTION DISCUSSED: neg. DIET AND EXERCISE DISCUSSED: neg. ADVANCED DIRECTIVES DISCUSSED: neg. LAST DATE COLONOSCOPY: + 01/01 neg. LAST DATE FOBT: neg. LAST BONE DENSITY DATE: neg. DIABETIC EYE EXAM: neg. DIABETIC FOOT EXAM: neg LAST FLU VACCINE:Aug 2006 LAST PNEUMOCOCCAL:neg TIME PHYSICIAN WITH PATIENT: TOTAL: 30 minutes. TIME PATIENT COUNSELED/CARE COORDINATED: 20 minutes. RETURN VISIT : Patient is to return on an as needed basis. Return as planned. Electronically Signed by: Adolfo Goyal MD on Wednesday, February 28, 2007 documented in this encounter Plan of Treatment Not on file documented as of this encounter Visit Diagnoses Not on filedocumented in this encounter Care Teams Therapeutic Case Manager Relationship Specialty Start Date End Date Adolfo Goyal MD [address] [place] [address] PCP - General 03/22/07 03/16/21 documented as of this encounter
--- OUTSIDE RECORDS SUMMARY | 2025-03-09 11:26 | XMS_ITS | Encounter Summary ---
Author Organization [facility] Address [address] [place] [address] Care Team Providers Care Well Treatment Offsider Name Role Phone Adolfo Goyal MD Primary Care Provider [phone] Encounter Details Date Type Department Care Team (Late st Contact Info) Description 02/13/2008 Orders Only [facility] Internal Medicine - [place] [address] [place] [address] Adolfo Goyal MD [address] [facility] [address] [place] [address] Social History Tobacco Use Types Packs/Day Years Used Date Smoking Tobacco: Never Assessed Sex and Gender Information Value Date Recorded Sex Assigned at Not on file Legal 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 TOBACCO USE Patient does not currently use tobacco. MEDICATIONS: Medication list current. CHIEF COMPLAINT Multiple complaints. HISTORY: HISTORY: ekg abnormal on screen 401.1-HYPERTENSION ESSENTIAL BENIGN The patient has gained weight. The patient is compliant with diet. The patient`s exercise has increased. The patient denies chest pain, shortness of breath, dyspnea on exertion, pedal edema, or headache. The patient is tolerating the medication. The blood pressure readings taken outside the office since the last visit have improved and are now controlled in thetarget range. ROS: GENERAL: Normal activity and energy level, [...] Has no significant smoking history. 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 [...] hepatosplenomegaly, tenderness or nodularity. Kidneys not palpable. OFFICE PROCEDURES: EKG INTERPRETATION EKG RHYTHM: The EKG shows normal sinus rhythm. No ischemic changes noted. ASSESSMENT/PLAN: 401.1-HYPERTENSION ESSENTIAL BENIGN MEDICATIONS: DIOVAN ORAL TABLET 160 MG, 1 Every Day, 90 Dispensed, 3 Fills, status: CONTINUED, 02/13/2008. 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 RETURN VISIT : Patient is to return on an as needed basis. Return as planned. Electronically Signed by: Adolfo Goyal MD on Wednesday, February 13, 2008 documented in this encounter Plan of Treatment Not on file documented as of this encounter Visit Diagnoses Not on filedocumented in this encounter Care Teams Well Treatment Offsider Relationship Specialty Start Date End Date Adolfo Goyal MD [address] [place] [address] PCP - General 03/22/07 03/16/21 documented as of this encounter
--- OUTSIDE RECORDS SUMMARY | 2025-03-09 11:26 | XMS_ITS | Encounter Summary ---
Author Organization [facility] Address [address] [place] [address] Care Team Providers Care Supervisor Dock Name Role Phone Adolfo Goyal MD Primary Care Provider Encounter Details Date Type Department Care Team (Late st Contact Info) Description 02/13/2008 Outpatient Historical [facility] Internal Medicine - [place] [address] [place] [address] Adolfo Goyal MD [address] [place] [address] Social History Tobacco Use Types Packs/Day Years Used Date Smoking Tobacco: Never Assessed Sex and Gender Information Value Date Recorded Sex Assigned at Not on file Legal Sex Male 3:15 AM TAPPER BIT Gender Identity Not on file Sexual Orientation Not on file documented as of this encounter Plan of Treatment Not on file documented as of this encounter Visit Diagnoses Not on filedocumented in this encounter Care Teams Supervisor Dock Relationship Specialty Start Date End Date Adolfo Goyal MD [address] [facility] [address] [place] [address] PCP - General 03/22/07 03/16/21 documented as of this encounter
--- OUTSIDE RECORDS SUMMARY | 2025-03-09 11:26 | XMS_ITS | Encounter Summary ---
Author Organization [facility] Address [address] [place] [address] Care Team Providers Care Barrel Charrer Name Role Phone Adolfo Goyal MD Primary Care Provider [phone] Encounter Details Date Type Department Care Team (Late st Contact Info) Description 03/07/2004 Outpatient Historical [facility] [address] [place] [address] [place] [address] Mandeep Maciel MD Social History Tobacco Use Types Packs/Day Years Used Date Smoking Tobacco: Never Assessed Sex and Gender Information Value Date Recorded Sex Assigned at Not on file Legal Sex Male 3:[address] TECHNOLOGIST Gender Identity Not on file Sexual Orientation Not on file documented as of this encounter Plan of Treatment Not on file documented as of this encounter Visit Diagnoses Not on filedocumented in this encounter Care Teams Barrel Charrer Relationship Specialty Start Date End Date Adolfo Goyal MD [address] [place] [address] PCP - General 03/22/07 03/16/21 documented as of this encounter
--- OUTSIDE RECORDS SUMMARY | 2025-03-09 11:26 | XMS_ITS | Encounter Summary ---
Author Organization [facility] Address 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 Gender Identity Not on file Sexual Orientation Not on file documented as of this encounter Last Filed Vital Signs Vital Sign Reading Time Taken Comments Blood Pressure 140/80 12/05/2004 4:00 PM CORRECTIONAL FOOD SERVICE SUPERVISOR Pulse 86 12/05/2004 4:00 PM CORRECTIONAL FOOD SERVICE SUPERVISOR Temperature - - Respiratory Rate - - Oxygen Saturation - - Inhaled Oxygen Concentration - - Weight 112 kg (247 lb) 12/05/2004 4:00 PM CORRECTIONAL FOOD SERVICE SUPERVISOR Height - - Body Mass Index - - documented in this encounter Plan of Treatment Not on file documented as of this encounter Visit Diagnoses Not on filedocumented in this encounter Care Teams Weight Reduction Specialist Relationship Specialty Start Date End Date Adolfo Goyal MD [address] [facility] [address] [place] [address] PCP - General 03/22/07 03/16/21 documented as of this encounter
--- OUTSIDE RECORDS SUMMARY | 2025-03-09 11:26 | XMS_ITS | Clinical Summary ---
Author Organization [facility] Address [address] [place] [address] Care Team Providers Care Calender Wind Up Helper Name Role Phone Chris Hurt MD Primary Care Provider [phone] Source Comments [facility],non-owned Affiliates and Associated Physician Practices is amultiple site organization consisting of ambulatory clinics and hospital sitesin [place], [place], [place] and [place]. This disclosure is being madepursuant to the Care Everywhere program and may not contain all information available regarding this patient. Last updated 18.[facility] Allergies No known active allergies Medications * Be aware that medications may not be up to date on this document. Alwaysverify current medications with the patient. losartan (Cozaar) 100 MG tablet Take 1 (one) tablet by mouth once daily Active atorvastatin (Lipitor) 20 MG tablet Take 1 (one) tablet by mouth at bedtime Active hydroCHLOROthia zide (Microzide) 12.5 MG capsule Take 1 (one) capsule by mouth once daily Active Active Problems Problem Noted Date Diagnosed Date Lumbar stenosis with neurogenic claudication Encounters Date Type Department Care Team Description 12/08/2024 7:56 AM PRODUCT ASSURANCE ENGINEER - 12/09/2024 3:38 PM [facility] Hospital Encounter [facility] [address] [address] [place] [address] Eduardo Mejias MD Surgery General Discharge Disposition: Home or Self Care from Last 3 Months Family History Medical History Relation Name Comments Cancer - Other Mother Relation Name Status Comments Father Mother Social History Tobacco Use Types Packs/Day Years Used Date Smoking Tobacco: Never Smokeless Tobacco: Never Tobacco Cessation:Counseling Given: Not Answered Alcohol Use Standard Drinks/Week Comments Never 0 (1 standard drink = 0.6 oz pur e alcohol) Sex and Gender Information Value Date Recorded Sex Assigned at Not on file Legal Sex Male 6:15 AM PRODUCT ASSURANCE ENGINEER Gender Identity Not on file Sexual Orientation Not on file Last Filed Vital Signs Vital Sign Reading Time Taken Comments Blood Pressure 137/68 12/09/2024 2:59 PM PRODUCT ASSURANCE ENGINEER after amb. with therapy Pulse 49 12/09/2024 2:59 PM PRODUCT ASSURANCE ENGINEER Temperature 36.4 C (97.6 F) 12/09/2024 11:04 AM PRODUCT ASSURANCE ENGINEER Respiratory Rate 18 12/09/2024 11:0 4 AM PRODUCT ASSURANCE ENGINEER Oxygen Saturation 97% 12/09/2024 2:5 9 PM PRODUCT ASSURANCE ENGINEER Inhaled Oxygen Concentration - - Weight 119.3 kg (263 lb) 12/08/2024 8:1 5 AM PRODUCT ASSURANCE ENGINEER Height 185.4 cm (6' 1 ) 12/08/2024 8:15 AM PRODUCT ASSURANCE ENGINEER Body Mass Index 34.7 12/08/2024 8:15 AM PRODUCT ASSURANCE ENGINEER Plan of Treatment Health Maintenance Due Date Last Done Comments DTAP/TDAP/TD VACCINES (1 - Tdap) 1963 PNEUMOCOCCAL VACCINE 50+ (1 of 1 - PCV) 1994 ZOSTER VACCINE (1 of 2) 1994 Respiratory Syncytial Virus (RSV) Vaccine Pt: or over 60 yrs (1 - 1-dose 75+ series) 2019 COVID-19 VACCINE ( - 2023-2 5 season) 2024 DEPRESSION SCREENING 11/25/2024 MEDICARE AWV CALENDAR YEAR 2024 INFLUENZA VACCINE (Season Ended) 2025 HEPATITIS B VACCINE Aged Out No longe r eligible based on patient's age to complete this topic HIB VACCINE Aged Out No longer eligi ble based on patient's age to complete this topic HPV VACCINE Aged Out No longer eligi ble based on patient's age to complete this topic MENINGOCOCCAL (Group B) VACC INE SHARED DECISION-MAKING Aged Out No longer eligibl e based on patient's age to complete this topic MENINGOCOCCAL GROUPS A/C/Y/W VACCINE Aged Out No longer eligible b ased on patient's age to complete this topic Procedures Procedure Name Priority Date/Time Associated Diagnosis Comments CARDIAC RHYTHM STRIP ORDER 12/10/2024 9:21 PM PRODUCT ASSURANCE ENGINEER from Last 3 Months Results * CARDIAC RHYTHM STRIP ORDER (12/10/2024 9:21 PM PRODUCT ASSURANCE ENGINEER) Narrative 12/10/2024 9:21 PM PRODUCT ASSURANCE ENGINEER Ordered by an unspecified provider. us Scanned Document CARDIAC SERVICES ORDERABLES Fin al Result from Last 3 Months Insurance AETNA AETNA MEDICARE ADV Advance Directives * Full Code (Latest Code Status on File) Date Activated Date Inactivated Comments 12/08/2024 4:48 PM 12/09/2024 4:39 PM Care Teams Calender Wind Up Helper Relationship Specialty Start Date End Date Chris Hurt MD [address] [place] [address] PCP - General Internal Medicine 07/16/17
--- OUTSIDE RECORDS SUMMARY | 2025-03-09 11:26 | XMS_ITS | Continuity of Care Document ---
Author Organization [facility] Address [address] [facility] [address] [place] [address] Phone Care Team Providers Care Pretzel Twisting Machine Operator Name Role Phone Eduardo Mejias MD Unavailable Unavailable Allergies, Adverse Reactions, Alerts Substance Reaction Status Criticality No Known Allergies Active No Inform ation Medications Medication Instructions Dosage Effective Dates (start - stop) Status Comments docusate sodium 100 mg capsule take 2 capsule by oral route twice daily for post op - Active ondansetron [address] 1 tablet by translingual route 2 times every day on top of the tongue where it will dissolve, then swallow for post op 8 MG - Active hydrocodone 5 mg-acetaminophen 325 mg tablet take 1 tablet by oral route every 6 hours as needed for pain for post op 1.00 tablet - Active Valium 5 mg tablet take 1 tablet by oral route 2 times every day for post op 5 MG - Active This is a one time post operative prescription LOSARTAN POTASSIUM (unknown strength) Not Available - Active GABAPENTIN (unknown strength) take 1 capsule by oral route 3 times every day Not Available - Active HYDROCHLOROTHIAZIDE (unknown strength) Not Available - Active CELEBREX (unknown strength) Not Available - Active ATORVASTATIN CALCIUM (unknown strength) Not Available - Active Procedures Procedure Date POSTOP FOLLOW-UP VISIT POSTOP FOLLOW-UP VISIT REMOVAL OF SPINAL LAMINA OFFICE/OUTPATIENT VISIT EST MRI Spine w/o Contrast-Cervical 025 OFFICE/OUTPATIENT VISIT EST RADEX SPI LUMBOSAC 2/3 VIEWS RADEX SPI CRV 2/3 VIEWS OFFICE/OUTPATIENT VISIT EST Triamcinolone acet inj NOS OFFICE/OUTPATIENT VISIT EST Triamcinolone acet inj NOS OFFICE/OUTPATIENT VISIT EST RADEX KNE 3 VIEWS OFFICE/OUTPATIENT VISIT EST Triamcinolone acet inj NOS OFFICE/OUTPATIENT VISIT EST MRI Spine w/o Contrast-Lumbar RADEX SPI LUMBOSAC 2/3 VIEWS OFFICE/OUTPATIENT VISIT NEW RADEX KNE 3 VIEWS POSTOP FOLLOW-UP VISIT POSTOP FOLLOW-UP VISIT TOTAL KNEE ARTHROPLASTY RADEX KNE COMPL 4/MORE VIEWS OFFICE/OUTPATIENT VISIT NEW Advance Directives Directive Yes / No Effective Date File Name No Information Encounters Encounter Description Practice Location Reason(s) For Visit Diagnoses Date Provider Providers Copied on Encounter [facility], [address], [place], [address], [place] tel:[phone] [facility], [facility] 5 Magalie Eduardo. [address], [place], [place], [id number], [place]. tel:[phone] Referring Provider: Chris Hurt, [address] [place], [address]. tel:[phone] [facility], [address], [place], [address], [place] tel:[phone] [facility] CervicalgiaSpi nal stenosis, lumbar region with neurogenic claudication 5 Magalie Eduardo. [address], [place], [place], [address], [place]. tel:[phone] Referring Provider: Chris Hurt, [address] [place], [address]. tel:[phone] [facility], [address], [place], [address], [place] tel:[phone] [facility] Spinal stenosis, lumbar region with neurogenic claudication 5 Magalie Eduardo. [address], [place], [place], [address], [place]. tel:[phone] OFFICE/OUTPA TIENT VISIT EST [facility], [address], [place], [address], [place] tel:[phone] [facility] Spinal stenosis, lumbar region with neurogenic claudicationCe rvical stenosis of spine 5 Magalie Eduardo. [address], [place], [place], [address], [place]. tel:[phone] Referring Provider: Chris Hurt, [address] [place], [address]. tel:[phone] [facility], [address], [place], [address], [place] tel:[phone] [facility] Pre-op testing 5 Magalie Eduardo. [address], [place], [place], [address], [place]. tel:[phone] [facility], [address], [place], [address], [place] tel:[phone] [facility] Spondylosis without myelopathy or radiculopathy, cervical regionPre-op testing 5 No Information [facility], [address], [place], [address], [place] tel:[phone] [facility] Spinal stenosis, lumbar region with neurogenic claudication 4 Magalie Eduardo. [address], [place], [place], [address], [place]. tel:[phone] OFFICE/OUTPA TIENT VISIT EST [facility], [address] [facility] [address], [place], [address], [place] tel:[phone] [facility] Low back pain, unspecifiedSpi nal stenosis, lumbar region with neurogenic claudicationCe rvicalgiaSpond ylosis without myelopathy or radiculopathy, cervical region 4 Magalie Eduardo. [address], [place], [place], [address], [place]. tel:[phone] Referring Provider: uTshar Sutton, [address] [place] [address] [address], [place], [address] . tel:[phone] OFFICE/OUTPA TIENT VISIT EST [facility], [address] [facility] [address], [place], [address], [place] tel:[phone] [facility] Low back pain, unspecifiedCer vicalgiaSpinal stenosis, lumbar region with neurogenic claudication 4 Magalie Eduardo. [address], [place], [place], [address], [place]. tel:[phone] Referring Provider: Tushar Sutton, [address] [place] [address] Dr [address], [place], [address] . tel:[phone] OFFICE/OUTPA TIENT VISIT EST [facility], [address] [facility] [address], [place], [address], [place] tel:[phone] [facility] Left lumbar radiculopathyS maira stenosis, lumbar region with neurogenic claudicationDJ D (degenerative joint disease), lumbosacral Mar-0 4 Al Lynn. [address], [place], [place], [address]. tel:[phone] Referring Provider: Tushar Sutton, [address] [place] [address] Dr [address], [place], [address] . tel:[phone] [facility], [address] [facility] [address], [place], [address], [place] tel:[phone] [facility] Left lumbar radiculopathy 4 Al Lynn. [address] , [place], [place], [address]. tel:[phone] OFFICE/OUTPA TIENT VISIT EST [facility], [address], [address], [place] tel:[phone] [facility] Spinal stenosis, lumbar region with neurogenic claudicationLe ft lumbar radiculopathyD ELISSA (degenerative joint disease), lumbosacral Oct- 3 Al Calvinok. [address], [place], [place], [address]. tel:[phone] Referring Provider: Tushar Sutton, [address] [place] [address] Dr [address], [place], [address] . tel:[phone] OFFICE/OUTPA TIENT VISIT EST [facility], [address], [address], [place] tel:[phone] [facility] Status post total left knee replacement 3 L'Hommedibrook Obregon. [address] [facility], [place], [place], [address]. tel:[phone] Referring Provider: Tushar Sutton, [address] [place] [address] [address], [place], [address] . tel:[phone] [facility], [address], [address], [place] tel:[phone] [facility] Lumbar radiculopathyS maira stenosis, lumbar region with neurogenic claudication 3 Al Lynn. [address], [place], [place], [address]. tel:[phone] OFFICE/OUTPA TIENT VISIT EST [facility], [address], [address], [place] tel:[phone] [facility] Lumbar radiculopathyS maira stenosis, lumbar region with neurogenic claudicationDJ D (degenerative joint disease), lumbosacral Sep- 3 Al Lynn. [address] [facility], [place], [place], [address]. tel:[phone] Referring Provider: Tushar Sutton, [address] [place] [address] [address], [place], [address] . tel:[phone] [facility], [address], [address], [place] tel:[phone] [facility] Lumbar radiculopathy 3 Al Lynn. [address] [facility], [place], [place], [address]. tel:[phone] [facility], [address], [address], [place] tel:[phone] [facility] Spinal stenosis, lumbar region with neurogenic claudication 3 No Information Referring Provider: Shane Melendez, [address] [facility] [address], [place], [address] . tel:[phone] [facility], [address], [address], [place] tel:[phone] [facility] Lumbar stenosis with neurogenic claudication Aug- 3 Al Lynn. [address] [facility], [place], [place], [address]. tel:[phone] OFFICE/OUTPA TIENT VISIT NEW [facility], [address] [address], [place], [address], [place] tel:[phone] [facility] Low back pain, unspecifiedBod y mass index [BMI] 34.0-34.9, adultLumbar stenosis with neurogenic claudicationDJ D (degenerative joint disease), lumbosacralLum bar radiculopathy Jul- 3 Al Lynn. [address] , [place], [place], [address]. tel:[phone] Referring Provider: Tushar Sutton, [address] [place] [address] [address], [place], [address] . tel:[phone] [facility], [address] [facility] [address], [place], [address], [place] tel:[phone] [facility] Status post total left knee replacement 3 L'Hommedieu Kerr. [address] , [place], [place], [address]. tel:[phone] Referring Provider: Tushar Sutton, [address] [place] [address] Dr [address], [place], [address] . tel:[phone] [facility], [address] [address], [place], [address], [place] tel:[phone] [facility] Status post total left knee replacementBod y mass index [BMI] 34.0-34.9, adult 3 Garth Kuhn. [address] [facility] [address], [place], [address]. tel:[phone] Referring Provider: Tushar Sutton, [address] [place] [address] Dr [address], [place], [address] . tel:[phone] [facility], [address] [address], [place], [address], [place] tel:[phone] [facility] Unilateral primary osteoarthritis , left knee 3 L'Hommedieu Kerr. [address], [place], [place], [address]. tel:[phone] [facility], [address] [address], [place], [address], [place] tel:[phone] [facility] Primary osteoarthritis of left kneeStatus post total left knee replacement 3 L'Hommedieu Kerr. [address], [place], [place], [address]. tel:[phone] OFFICE/OUTPA TIENT VISIT NEW [facility], [address] [address], [place], [address], [place] tel:[phone] [facility] Body mass index [BMI] 34.0-34.9, adultPain in left kneePrimary osteoarthritis of left kneeVarus deformity, not elsewhere classified, left knee 3 L'Hommedieu Kerr. [address], [place], [place], [address]. tel:[phone] Referring Provider: Tushar Sutton, [address] [place] [address] [address], [place], [address] . tel:[phone] [facility], [address], [place], [address], tel:[phone] [facility] Pain in left knee 3 L'Hommedieu Kerr. [address], [place], [place], [address]. tel:[phone] Family History Family Member Type Diagnosis Age At Onset Mother Problem Cancer, colon Payers Payer name Insurance type Covered alliance party ID Blasa nitish(s) [employer] Medicare PPO [id number] Social History Type Description Quantity Date Captured Comments Alcohol Use Details Unknown Caffeine Use Details Unknown Tobacco Use Status No Information Smoking Status No Information Sex Male Chief Complaint And Reason For Visit No Information Reason For Referral Reason For Referral No Information Plan Of Treatment Date Type Action Status Goal Dietary manageme nt education, guidance, and counseling completed Referral Ordered: ELECTROCARDIOGRAM COMPLETE ordered Referral Ordered: MRI Spine w/o Contrast-Cervical spine, cervical Appointment date/timeframe: 12/03/2024 ordered Referral Ordered: RADEX SPI CRV 2/3 VIEWS spine, cervical ordered Referral Referred To: Eduardo Mejias [address] [place], [place], [phone] Ordered: Referrals: Allopathic & Osteopathic Physicians : Orthopaedic Surgery. Eduardo Mejias. Consult ordered Referral Ordered: INJ FORAMEN EPIDURAL L/S spine, lumbar Appointment date/timeframe: 10/22/2023 ordered Referral Ordered: INJ FORAMEN EPIDURAL L/S Appointment date/timeframe: 10/01/2023 ordered Referral Ordered: MRI Spine w/o Contrast-Lumbar Appointment date/timeframe: 09/25/2023 ordered Referral Ordered: RADEX SPI LUMBOSAC 2/3 VIEWS spine, lumbar ordered Referral Ordered: RADEX KNE 3 VIEWS LT knee ordered Referral Ordered: RADEX KNE COMPL 4/MORE VIEWS LT knee ordered Referral Ordered: RADEX KNE COMPL 4/MORE VIEWS RT knee ordered Future Order: Lab Order Basic Me tabolic Panel (8) ([id number]), Ordered on: Ordered Future Order: Lab Order CBC With Differential/Platelet ([id number]), Ordered on: Ordered History Of Present Illness Encounter Date Complaint History Of Prese nt Illness No Information Functional Status Date Functional Assessmen t No Information Instructions Date Instruction Additional Infor nathalia Fall prevention home exercise program handout provided Dietary management e ducation, guidance, and counseling Related to Body mass index [BMI] 34.0-34.9, adult Giving encouragement to exercise Related to Body mass index [BMI] 34.0-34.9, adult Giving encouragement to exercise Related to Body mass index [BMI] 34.0-34.9, adult Assessments Type Assessment Date assessment Spinal stenosis, lumbar region w ith neurogenic claudication assessment Post-operative state Patient Care Teams Name Effective Dates (start - stop) Status Members No Information
--- OUTSIDE RECORDS SUMMARY | 2025-03-09 11:26 | XMS_ITS | Encounter Summary ---
Author Organization [facility] Address 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
--- OUTSIDE RECORDS SUMMARY | 2025-03-09 11:26 | XMS_ITS | Encounter Summary ---
Author Organization [facility] Address 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 Gender Identity Not on file Sexual Orientation Not on file documented as of this encounter Last Filed Vital Signs Vital Sign Reading Time Taken Comments Blood Pressure 150/90 12/10/2003 4:00 PM SALESPERSON TERRAZZO TILES Pulse 80 12/10/2003 4:00 PM SALESPERSON TERRAZZO TILES Temperature - - Respiratory Rate - - Oxygen Saturation - - Inhaled Oxygen Concentration - - Weight 108 kg (238 lb) 12/10/2003 4:00 PM SALESPERSON TERRAZZO TILES Height - - Body Mass Index - - documented in this encounter Plan of Treatment Not on file documented as of this encounter Visit Diagnoses Not on filedocumented in this encounter Care Teams Compliance Advisor Relationship Specialty Start Date End Date Adolfo Goyal MD [address] [facility] [address] [place] [address] PCP - General 03/22/07 03/16/21 documented as of this encounter
--- OUTSIDE RECORDS SUMMARY | 2025-03-09 11:26 | XMS_ITS | Encounter Summary ---
Author Organization [facility] Address 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 Gender Identity Not on file Sexual Orientation Not on file documented as of this encounter Last Filed Vital Signs Vital Sign Reading Time Taken Comments Blood Pressure 120/80 09/28/2004 11:15 AM GEOTECHNICAL OPERATING ENGINEER Pulse 82 09/28/2004 11:15 AM GEOTECHNICAL OPERATING ENGINEER Temperature - - Respiratory Rate - - Oxygen Saturation - - Inhaled Oxygen Concentration - - Weight 109.3 kg (241 lb) 09/28/2004 11:15 AM GEOTECHNICAL OPERATING ENGINEER Height - - Body Mass Index - - documented in this encounter Plan of Treatment Not on file documented as of this encounter Visit Diagnoses Not on filedocumented in this encounter Care Teams Food Consultant Relationship Specialty Start Date End Date Adolfo Goyal MD [address] [facility] [address] [place] [address] PCP - General 03/22/07 03/16/21 documented as of this encounter
--- OUTSIDE RECORDS SUMMARY | 2025-03-09 11:26 | XMS_ITS | Encounter Summary ---
Author Organization [facility] Address 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
--- OUTSIDE RECORDS SUMMARY | 2025-03-09 11:26 | XMS_ITS | Encounter Summary ---
Author Organization [facility] Address 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
--- OUTSIDE RECORDS SUMMARY | 2025-03-09 11:26 | XMS_ITS | Clinical Summary ---
Author Organization [facility] Address [address] [place] [address] Care Team Providers Care Planetarium Sky Show Technician Name Role Phone Chris Hurt MD Primary Care Provider [phone] Allergies No known active allergies Medications hydroCHLOROthia zide (MICROZIDE) 12.5 mg capsule Take 1 capsule (12.5 mg total) by mouth daily Active losartan (COZAAR) 100 mg tablet Take 1 tablet (100 mg total) by mouth nightly Active atorvastatin (LIPITOR) 20 mg tablet Take 1 tablet (20 mg total) by mouth daily Active traMADoL (ULTRAM) 50 mg tablet every 8 (eight) hours as needed 7 Active gabapentin (NEURONTIN) 300 mg capsule Take 1 capsule (300 mg total) by mouth 2 (two) times a day 4 Active celecoxib (CeleBREX) 100 mg capsule Take 1 capsule (100 mg total) by mouth as needed for pain Active oxyCODONE-aceta minophen (PERCOCET) 5-325 mg per tabletIndicatio ns:Pain Take 1-2 tablets by mouth every 8 (eight) hours as needed for pain 20 tablet 4 Active Additional Information Patient not taking.Reported on 07/28/2024 Active Problems Problem Noted Date Diagnosed Date Lumbosacral spondylosis without myelopathy 02/13 Lumbar facet joint syndrome 02/13/2022 Primary osteoarthritis involving multiple joints 02/13/2022 Personal history of colonic polyps 12/06/2021 Overview (12/06/2021): Added automatically from request for surgery [id number] Encounter for screening colonoscopy 12/06/2021 Overview (12/06/2021): Added automatically from request for surgery [id number] Resolved Problems Problem Noted Date Diagnosed Date Resolved Date Umbilical hernia without obs truction and without gangrene 07/28/2024 07/28/2024 Bilateral recurrent inguinal hernia without obstruction or gangrene 07/08/2024 07/28/2024 Assessment & Plan (07/10/2024 11:15 AM CDT): Symptomatic left inguinal hernia, right ignuinal hernia seen on CT (outside facility) Discussed lap robotic approach with mesh. Patient and his questions were answered. They are understanding and agreeable. Surgical History Surgery Date Site/Laterality Comments COLONOSCOPY 02/23/2017 - 03/24/2017 POLYPECTOMY INGUINAL HERNIA REPAIR Left TOTAL KNEE ARTHROPLASTY Left INGUINAL HERNIA REPAIR 07/13/2024 Medical History Medical History Date Comments Sleep apnea Hypertension Hyperlipidemia Spinal stenosis Colon polyp Stroke (HCC) 01/2020 Family History Medical History Relation Name Comments Colon cancer Mother Relation Name Status Comments Mother Social History Tobacco Use Types Packs/Day Years Used Date Smoking Tobacco: Never Smokeless Tobacco: Never Tobacco Cessation:Counseling Given: Not Answered AUDIT-C Answer Date Recorded Frequency of Alcohol Consumption Not on file 07/08/2024 Q2: How many drinks containi ng alcohol do you have on a typical day when you are drinking? Patient does not drink Frequency of Binge Drinking Not on file 06/25 Personal Safety Answer Date Recorded Have you ever been in or are you currently in a harmful physical or emotional relationship or is someone making you feel afraid or unsafe? 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 Gender Identity Not on file Sexual Orientation Not on file Obstetrics History Last Filed Vital Signs Vital Sign Reading Time Taken Comments Blood Pressure 121/72 07/28/2024 12:52 PM CDT Pulse 61 07/28/2024 12:52 PM CDT Temperature 36.1 C (96.9 F) 07/28/2024 12:52 PM CDT Respiratory Rate 20 07/13/2024 11:1 0 AM CDT Oxygen Saturation 96% 07/28/2024 12: 52 PM CDT Inhaled Oxygen Concentration - - Weight 117.6 kg (259 lb 4.8 oz) 024 12:52 PM CDT Height 185.4 cm (6' 1 ) 07/28/2024 12:5 2 PM CDT Body Mass Index 34.21 07/28/2024 12:52 PM CDT Plan of Treatment Health Maintenance Due Date Last Done Comments Depression Screening 1945 Hepatitis B Screening 1962 Well Visit 65+ 2009 Fall Risk Assessment 02/08/2023 02/08/2022 Covid-19 Vaccine (2023- 5 season) 2024 08/26/2021, 01/18/2021, 12/28/2020 Influenza Vaccine (Season Ended) 2025 07/11/2021, 08/18/2020, 07/07/2019, Additional history exists DTaP/Tdap/Td Vaccine (3 - Td or Tdap) 11/05/2029 11/05/2019, 04/12/2010 Zoster Vaccine Completed 12/01/2020, 09/19/2020 Pneumococcal vaccine 65+ Completed 021, 05/26/2018, 04/12/2010 Colon Cancer Screening-CT Colonography Discontinued 02/08/2022, 03/19/2017, 12/10/2011 Colon Cancer Screening-Colonoscopy Discontinued 02/08/2022, 03/19/2017, 12/10/2011 Colon Cancer Screening-DNA Stool Discontinued 02/08/2022, 03/19/2017, 12/10/2011 Colon Cancer Screening-FIT Discontinued 02/08, 03/19/2017, 12/10/2011 Colon Cancer Screening-FOBT Discontinued 01/23, 03/19/2017, 12/10/2011 Colon Cancer Screening-Sigmoidoscopy Discontinued 02/08/2022, 03/19/2017, 12/10/2011 Colorectal Cancer Screening Discontinued Medical Devices Implanted Type Area Milk Runner Device Identifier Shelf Expiration Date Model / Serial / Lot [employer] Progrip 15x9cm Self Dirt Contractor Rectangle Mesh Surgical Polyester Hernia [id number] - [id number] Implanted:Qty: 1 on 07/13/2024 by Faustino Henao MD at [facility] Left: Abdomen [employer] Inc 01/22/2029 [id number] / / [id number] Med[employer]onic Inc Progrip 15x9cm Self Dirt Contractor Rectangle Mesh Surgical Polyester Hernia [id number] - [id number] Implanted:Qty: 1 on 07/13/2024 by Faustino Henao MD at [facility] Right: Abdomen [employer] 09/24/2028 [id number] / / [id number] Procedures Procedure Name Priority Date/Time Associated Diagnosis Comments COLONOSCOPY 02/08/2022 7:21 AM CDT from Last 3 Months or Most Recently Relevant to Health Maintenance Results * COLONOSCOPY (02/08/2022 7:21 AM CDT) Anatomical Region Laterality Modality Other Narrative Procedure Note Florencio Corado MD - 02/08/2022 7:21 AM CDT [facility] Patient Name: Luis Mary Procedure Date: 02/08/2022 7:21 AM Date of : 1945 Admit Type: Outpatient Age: 76 Gender: Male Attending MD: Florencio Corado M.D. Room: [facility] ENDOSCOPY ROOM 2 Note Status: Finalized Patient Profile: Refer to note in patient chart for documentation of history and physical. Procedure: Colonoscopy Indications: High risk colon cancer surveillance: Personalhistory of colonic polyps, Family history of colon cancerin a first-degree relative before age 60 years, Last colonoscopy: February 2017 Referring MD: Chris Hurt M.D. Providers: Florencio Corado M.D. Impression: - Hemorrhoids found on perianal exam. - One 3 mm polyp in the descending colon, removedwith a cold snare. Resected and retrieved. - Diverticulosis in the sigmoid colon, in the descending colon and in the transverse colon. - The examination was otherwise normal. Recommendation: - Discharge patient to home. - Resume previous diet. - Continue present medications. - Await pathology results. - Repeat colonoscopy in 5 years for surveillance. - Return to primary care physician as previously scheduled. Medicines: Propofol per Anesthesia Complications: No immediate complications. Estimated Blood Loss: Estimated blood loss: none. Procedure: Pre-Anesthesia Assessment: - This assessment was completed [Time ofAssessment] prior to the administration of sedation. The benefits, risks and alternatives of theprocedure and sedation were discussed and informed consentwas obtained. All questions were answered. Please referto the signed informed consent document in the medical record. The bowel preparation used was Miralax and bisacodyl tablets via single dose instruction. The scope was passed under direct vision. TheColonoscope [id number] was introduced through the anus and advanced to the the cecum, identified by appendiceal orifice and ileocecal valve. The colonoscopy was performed without difficulty. The patient tolerated the procedure well. The qualityof the bowel preparation was good. The ileocecalvalve, appendiceal orifice, and rectum werephotographed. Findings: Hemorrhoids were found on perianal exam. A 3 mm polyp was found in the descending colon. The polyp wassessile. The polyp was removed with a cold snare. Resection and retrieval were complete. Verification of patient identification for the specimen was done by the physician and nurse using the patient's name and birthdate. Estimated blood loss was minimal. Multiple small and large-mouthed diverticula were found in thesigmoid colon, descending colon and transverse colon. The exam was otherwise without abnormality. Electronically signed by Florencio Corado M.D. Florencio Corado M.D. 02/08/2022 8:31:57 AM Number of Addenda: 0 Note Initiated On: 02/08/2022 7:21 AM Procedure Code(s): --- Professional --- 42154, Colonoscopy, flexible; with removal of tumor(s), polyp(s), or other lesion(s) by snare technique Diagnosis Code(s): --- Professional --- K57.30, Diverticulosis of large intestine without perforation orabscess without bleeding Z80.0, Family history of malignant neoplasm of digestive organs D12.4, Benign neoplasm of descending colon K64.9, Unspecified hemorrhoids Z86.010, Personal history of colonic polyps CPT copyright 2020 [employer]. All rights reserved. The codes documented in this report are preliminary and upon safety aide reviewmay be revised to meet current compliance requirements. Recognized by the [employer] for promoting quality in endoscopy Florencio Corado MD ENDOSCOPY PROCEDURES Final Re sult from Last 3 Months or Most Recently Relevant to Health Maintenance [facility] [place] MEDICARE [place] AET[place] [facility]IC[facility] Address: [facility] [id number] [place] [address] Advance Directives For more information, please contact: [phone] * Full Code (Latest Code Status on File) Date Activated Date Inactivated Comments 02/08/2022 7:28 AM 02/08/2022 1:53 PM * Full Code Date Activated Date Inactivated Comments 02/08/2022 7:28 AM 02/08/2022 7:28 AM Care Teams Planetarium Sky Show Technician Relationship Specialty Start Date End Date Chris Hurt MD PCP - General 03/19/17
--- OUTSIDE RECORDS SUMMARY | 2025-03-09 11:26 | XMS_ITS | Encounter Summary ---
Author Organization [facility] Address [address] [place] [address] Care Team Providers Care Bsa/Aml Compliance Officer Name Role Phone Adolfo Goyla MD Primary Care Provider [phone] Encounter Details Date Type Department Care Team (Late st Contact Info) Description 08/15/2004 Outpatient Historical [facility] Internal Medicine - [place] [address] [place] [address] Adolfo Goyal MD [address] [place] [address] Social History Tobacco Use Types Packs/Day Years Used Date Smoking Tobacco: Never Assessed Sex and Gender Information Value Date Recorded Sex Assigned at Not on file 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
--- OUTSIDE RECORDS SUMMARY | 2025-03-09 11:26 | XMS_ITS | Referral Summary ---
Author Organization [facility] Address [address] [place] [address] Care Team Providers Care Teenage Babysitter Name Role Phone Chris Hurt MD Primary Care Provider [phone] Allergies No known active allergies Medications hydroCHLOROthia [...] (12/06/2021): Added automatically from request for surgery [id number] Encounter for screening colonoscopy 12/06/2021 Overview (12/06/2021): Added automatically from request for surgery [id number] Resolved Problems Problem Noted Date Diagnosed Date [...] were answered. They are understanding and agreeable. 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 Gender Identity Not on file Sexual Orientation [...] Weight 117.6 kg (259 lb 4.8 oz) 12:52 PM CDT Height 185.4 cm (6' 1 ) 07/28/2024 12:5 2 PM CDT Body Mass Index 34.21 07/28/2024 12:52 PM CDT Plan of Treatment Not on file Medical Devices Implanted Type Area Instructional Technology Coordinator Device Identifier Shelf Expiration Date Model / Serial / Lot Medtronic Inc Progrip 15x9cm Self Payroll Administrator Rectangle Mesh Surgical Polyester Hernia [id number] - [id number] Implanted:Qty: 1 on 07/13/2024 by Faustino Henao MD at [facility] Left: Abdomen [employer] Inc 01/22/2029 [id number] / / [id number] Medtronic Inc Progrip 15x9cm Self Payroll Administrator Rectangle Mesh Surgical Polyester Hernia [id number] - [id number] Implanted:Qty: 1 on 07/13/2024 by Faustino Henao MD at [facility] Right: Abdomen [employer] Inc 09/24/2028 [id number] / / [id number] Procedures Procedure Name Priority Date/Time Associated Diagnosis Comments COLONOSCOPY 02/08/2022 7:21 AM CDT from Last 3 Months or Most Recently Relevant to Health Maintenance Results * COLONOSCOPY (02/08/2022 7:21 AM CDT) Anatomical Region Laterality Modality Other Narrative Procedure Note Florencio Corado MD - 02/08/2022 7:[address] [facility] Patient Name: Luis Mary Procedure Date: 02/08/2022 7:21 AM Date of : 1945 Admit Type: Outpatient Age: 76 Gender: Male Attending MD: Florencio Corado M.D. Room: [facility] ENDOSCOPY ROOM 2 Note Status: Finalized [...] scope was passed under direct vision. TheColonoscope [id number] was introduced through the anus and advanced [...] 7:21 AM Procedure Code(s): --- Professional --- 13041, Colonoscopy, flexible; with removal of tumor(s), polyp(s), or other lesion(s) by snare technique Diagnosis Code(s): --- Professional --- K57.30, Diverticulosis of large intestine without perforation orabscess without bleeding Z80.0, Family history of malignant neoplasm of digestive organs D12.4, Benign neoplasm of descending colon K64.9, Unspecified hemorrhoids Z86.010, Personal history of colonic polyps CPT copyright 2020 [employer]. All rights reserved. The codes documented in this report are preliminary and upon gasoline service attendant reviewmay be revised to meet current compliance requirements. Recognized by the [employer] for promoting quality in endoscopy Florencio Corado MD ENDOSCOPY PROCEDURES Final Re sult from Last 3 Months or Most Recently Relevant to Health Maintenance Insurance AETNA [facility] PPO AETNA MEDICARE [facility] AETNA MEDICARE Advance Directives For more information, please contact: [phone] * Full Code (Latest Code Status on File) Date Activated Date Inactivated Comments 02/08/2022 7:28 AM 02/08/2022 1:53 PM * Full Code Date Activated Date Inactivated Comments 02/08/2022 7:28 AM 02/08/2022 7:28 AM Care Teams Teenage Babysitter Relationship Specialty Start Date End Date Chris Hurt MD PCP - General 03/19/17
--- OUTSIDE RECORDS SUMMARY | 2025-03-09 11:26 | XMS_ITS | Encounter Summary ---
Author Organization [facility] Address [address] [place] [address] Care Team Providers Care Weight Clerk Name Role Phone Adolfo Goyal MD Primary Care Provider Encounter Details Date Type Department Care Team (Late st Contact Info) Description 03/03/2004 Outpatient Historical [facility] [address] [place] [address] 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
--- OUTSIDE RECORDS SUMMARY | 2025-03-09 11:26 | XMS_ITS | Encounter Summary ---
Author Organization [facility] Address 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
--- OUTSIDE RECORDS SUMMARY | 2025-03-09 11:26 | XMS_ITS | Encounter Summary ---
Author Organization [facility] Address [address] [place] [address] Care Team Providers Care Entertainment Centre Manager Name Role Phone Adolfo Goyal MD Primary Care Provider Encounter Details Date Type Department Care Team (Latest Contact Info) Description 02/28/2007 Outpatient Historical [facility] Internal Medicine - [place] [address] [place] [address] Adolfo Goyal MD [address] [facility] [address] [place] [address] Essential Hypertension, Benign (Primary Dx) Social History Tobacco Use Types Packs/Day Years Used Date Smoking Tobacco: Never Assessed Sex and Gender Information Value Date Recorded Sex Assigned at Not on file Legal 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 Gender Identity Not on file Sexual Orientation Not on file documented as of this encounter Plan of Treatment Not on file documented as of this encounter Procedures Procedure Name Priority Date/Time Associated Diagnosis Comments CBC WITH DIFFERENTIAL Routine 02/28/2007 11:13 AM CDT CBC WITH DIFFERENTIAL Routine 02/28/2007 11:13 AM CDT PSA Routine 02/28/2007 11:13 AM CDT LIPID PANEL Routine 02/28/2007 11:13 AM CDT COMPREHENSIVE METABOLIC PANEL Routine 02/28/2007 11:13 AM CDT documented in this encounter Results * CBC WITH DIFFERENTIAL (02/28/2007 11:13 AM CDT) NEUTROPHILS 66 45 - 70 % INTERFAC E SYSTEM LYMPHOCYTES 27 16 - 45 % INTERFAC E SYSTEM MONOCYTES 6 3 - 13 % INTERFACE SYSTEM EOSINOPHILS 2 0 - 7 % INTERFAC E SYSTEM BASOPHILS 1 0 - 2 % INTERFACE SYSTEM NEUTROPHIL ABSOLUTE 5.10 1.90 - 7.00 K/uL INTERFACE SYSTEM LYMPHOCYTE ABSOLUTE 2.06 0.70 - 4.50 K/uL INTERFACE SYSTEM MONOCYTE ABSOLUTE 0.43 0.10 - 1.30 K/uL INTERFACE SYSTEM EOSINOPHIL ABSOLUTE 0.12 0.00 - 0.70 K/uL INTERFACE SYSTEM BASOPHILS ABSOLUTE 0.06 0.00 - 0.20 K/uL INTERFACE SYSTEM 02/28/2007 11:1 3 AM CDT Adolfo Goyal MD HEMATOLOGY ORDERABLES Edite d Performing Organization Address [facility] de Phone Number INTERFACE SYSTEM Refer to clinic/hospital department * (ABNORMAL) CBC WITH DIFFERENTIAL (02/28/2007 11:13 AM CDT) WBC 7.8 4.0 - 9.8 K/uL INTERFACE SYSTEM RBC 5.37 4.50 - 5.40 M/uL INTERFACE SYSTEM HEMOGLOBIN 16.5 13.6 - 16.5 g/dL INTERFACE SYSTEM HEMATOCRIT 47.9 40.0 - 48.0 % INTERFACE SYSTEM MCV 89.2 82.0 - 99.0 fL INTERFACE SYSTEM MCH 30.7 27.2 - 32.6 pg INTERFACE SYSTEM MCHC 34.4 31.5 - 35.5 % INTERFACE SYSTEM RDW 13.7 11.5 - 14.5 % INTERFACE SYSTEM RDW-STDEV 44.4 37.1 - 48.7 fL INTERFACE SYSTEM PLATELETS 218 140 - 350 K/uL INTERFACE SYSTEM MPV 12.5(H) 9.3 - 12.4 fL INTERFACE SYSTEM 02/28/2007 11:1 3 AM CDT Adolfo Goyal MD HEMATOLOGY ORDERABLES Edite d Performing Organization Address [facility]/State/ZIP Co de Phone Number INTERFACE SYSTEM Refer to clinic/hospital department * COMPREHENSIVE METABOLIC PANEL (02/28/2007 11:13 AM CDT) GLUCOSE 87 65 - 99 mg/dL INTERFACE SYSTEM CREATININE 0.85 0.67 - 1.17 mg/dL INTERFACE SYSTEM CALCIUM 9.8 8.4 - 10.2 mg/dL INTERFACE SYSTEM ALKALINE PHOSPHATASE 115 40 - 129 U/L INTERFACE SYSTEM AST 25 12 - 38 U/L INTERFACE SYSTEM ALT 35 0 - 41 U/L INTERFACE SYSTEM TOTAL PROTEIN 7.5 6.3 - 8.6 g/dL INTERFACE SYSTEM ALBUMIN 4.6 3.4 - 4.8 g/dL INTERFACE SYSTEM BILIRUBIN TOTAL 0.4 0.2 - 1.0 mg/dL INTERFACE SYSTEM BUN 14 6 - 20 mg/dL INTERFACE SYSTEM SODIUM 141 135 - 145 mmol/L INTERFACE SYSTEM POTASSIUM 4.5 3.5 - 4.9 mmol/L INTERFACE SYSTEM CHLORIDE 104 96 - 108 mmol/L INTERFACE SYSTEM CO2 24 22 - 30 mmol/L INTERFACE SYSTEM GFR, >60 >=60 mL/min/1.7 sq meter INTERFACE SYSTEM GFR >60 >=60 mL/min/1.7 sq meter INTERFACE SYSTEM Comment: Estimated GFR rate interpretative information for both Americans and non- Americans is available on the [facility] Intranet at: [email or web address] Select: Lab Policies and Procedures Select: Reference Ranges - GFR 02/28/2007 11:1 3 AM CDT Adolfo Goyal MD CHEMISTRY ORDERABLES Edited INTERFACE SYSTEM Refer to clinic/hospital department * (ABNORMAL) LIPID PANEL (02/28/2007 11:13 AM CDT) CHOLESTEROL 215(H) 100 - 199 mg/dL INTERFACE SYSTEM TRIGLYCERIDE 126 10 - 149 mg/dL INTERFACE SYSTEM HDL 41 40 - 59 mg/dL INTERFACE SYSTEM CHOL/HDL RATIO 5.2(H) 2.0 - 5.0 INTER FACE SYSTEM LDL CALCULATED 149(H) <=99 mg/dL INTERFACE SYSTEM LIPID PANEL COMMENT See Below INTERFACE SYSTEM Comment: The adult ATP and pediatric NCEP classifications for lipids are available on the [facility] Intranet at: [email or web address] Select: Lab Policies and Procedures Select: Reference Ranges - Lipids 02/28/2007 11:1 3 AM CDT us Adolfo Goyal MD CHEMISTRY ORDERABLES Edited Performing Organization Address City/[facility] Co de Phone Number INTERFACE SYSTEM Refer to clinic/hospital department * PSA (02/28/2007 11:13 AM CDT) PSA 1.3 0.0 - 4.0 ng/mL INTERFACE SYSTEM Comment:Performed on [employer] [id number] System 02/28/2007 11:1 3 AM CDT us Adolfo Goyal MD CHEMISTRY ORDERABLES Edited Performing Organization Address City/[facility] de Phone Number INTERFACE SYSTEM Refer to clinic/hospital department documented in this encounter Visit Diagnoses Diagnosis Essential hypertension, benign- Primary documented in this encounter Care Teams Entertainment Centre Manager Relationship Specialty Start Date End Date Adolfo Goyal MD [address] [place] [phone] PCP - General 03/22/07 03/16/21 documented as of this encounter
--- OUTSIDE RECORDS SUMMARY | 2025-03-09 11:26 | XMS_ITS | Encounter Summary ---
Author Organization [facility] Address [address] [place] [address] Care Team Providers Care Square Shear Operator Name Role Phone Adolfo Goyal MD Primary Care Provider Encounter Details Date Type Department Care Team (Late st Contact Info) Description 04/21/2004 Outpatient Historical [facility] [address] [place] [address] 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
--- OUTSIDE RECORDS SUMMARY | 2025-03-09 11:27 | XMS_ITS | Continuity of Care Document ---
Author Organization [facility] Address [address] [place] [address] Phone Care Team Providers Care Nurses' Association Counselor Name Role Phone Reynolds OD, Kam Unavailable Unavailable Advance Directives Directive Yes / No Effective Date File Name No Information Encounters Encounter Description Practice Location Reason(s) For Visit Diagnoses Date Provider Providers Copied on Encounter [facility], [address], [place], [place], [id number], [place] tel:[phone] [facility] No Information Cornell-0 6-200 6 Reynolds OD Kam. [address] , [address], [place], [address], [place]. tel:[phone] Family History Family Member Type Diagnosis Age At Onset No Information Payers Payer name Insurance type Covered constitution party ID Authoriza tion(s) No Information Social History Type Description Quantity Date Captured Comments Sex Male Smoking Status No Information Chief Complaint And Reason For Visit No Information Reason For Referral Reason For Referral No Information History Of Present Illness Encounter Date Complaint History Of Prese nt Illness No Information Functional Status Date Functional Assessmen t No Information Instructions Date Instruction Additional Infor mation No Information Assessments Type Assessment Date No Information Patient Care Teams Name Effective Dates (start - stop) Status Members No Information
--- OUTSIDE RECORDS SUMMARY | 2025-03-09 11:27 | XMS_ITS | Encounter Summary ---
Author Organization [facility] Address 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
--- OUTSIDE RECORDS SUMMARY | 2025-03-09 11:27 | XMS_ITS | Encounter Summary ---
Author Organization [facility] Address [address] [place] [address] Care Team Providers Care Barn And Property Manager Name Role Phone Adolfo Goyal MD Primary Care Provider Encounter Details Date Type Department Care Team (Late st Contact Info) Description 05/23/2006 Orders Only [facility] Internal Medicine - [place] [address] [place] [address] Adolfo Goyal MD [address] [place] [address] Social History Tobacco Use Types Packs/Day Years Used Date Smoking Tobacco: Never Assessed Sex and Gender Information Value Date Recorded Sex Assigned at Not on file 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
--- OUTSIDE RECORDS SUMMARY | 2025-03-09 11:27 | XMS_ITS | Encounter Summary ---
Author Organization [facility] Address [address] [place] [address] Care Team Providers Care Paper Goods Machine Set Up Operator Name Role Phone Adolfo Goyal MD Primary Care Provider Encounter Details Date Type Department Care Team (Late st Contact Info) Description 12/16/2006 Orders Only [facility] Internal Medicine - [place] [address] [place] [address] Adolfo Goyal MD [address] [facility] [address] [place] [address] Social History Tobacco Use Types Packs/Day Years Used Date Smoking Tobacco: Never Assessed Sex and Gender Information Value Date Recorded Sex Assigned at Not on file 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 LAST VISIT: 02/12/06 PCP: Jay Jay WHO CALLED: Patient called. ALTERNATIVE PHONE NUMBER: [phone] CURRENT ALLERGY LIST: [facility] PHARMACY NUMBER: fax to [facility] SECTION 1: REQUESTED ACTION robyn 12/16/06 at 02:34 pm: MEDICATION REQUEST: MEDICATION REQUEST: Patient requests a refill. MEDICATIONS: DIOVAN ORAL TABLET 160 MG, 1 Every Day, 90 Dispensed, status: CONTINUED, 09/10/2006, Comment: faxedto [facility]sp. ok to refill? documented in this encounter Plan of Treatment Not on file documented as of this encounter Visit Diagnoses Not on filedocumented in this encounter Care Teams Paper Goods Machine Set Up Operator Relationship Specialty Start Date End Date Adolfo Goyal MD [address] [place] [phone] PCP - General 03/22/07 03/16/21 documented as of this encounter
--- OUTSIDE RECORDS SUMMARY | 2025-03-09 11:27 | XMS_ITS | Encounter Summary ---
Author Organization [facility] Address [address] [place] [address] Care Team Providers Care Freight Air Brake Fitter Name Role Phone Adolfo Goyal MD Primary Care Provider [phone] Encounter Details Date Type Department Care Team (Late st Contact Info) Description 09/10/2006 Orders Only [facility] Internal Medicine - [place] [address] [place] [address] Adolfo Goyal MD [address] [facility] [address] [place] [address] Social History Tobacco Use Types Packs/Day Years Used Date Smoking Tobacco: Never Assessed Sex and Gender Information Value Date Recorded Sex Assigned at Not on file Legal 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 LAST VISIT: 02/12/06 PCP: srinivas WHO CALLED: Patient called. ALTERNATIVE PHONE NUMBER: [phone] CURRENT ALLERGY LIST: [facility] PHARMACY NUMBER: fax to [facility] SECTION 1: REQUESTED ACTION franko Patterson/17/06 at 02:20 pm: MEDICATION REQUEST: MEDICATION REQUEST: Patient requests a refill. MEDICATIONS: DIOVAN ORAL TABLET 160 MG, 1 Every Day, 90 Dispensed, 3 Fills, status: CONTINUED, 09/03/2005, Comment: mtp. patient needing this refilled [facility]ed to [facility] for a 90 day supply-does not have a future appointment scheduled and wanted to know if he could just get it refilled without a fu-please advise DOCTOR`S RESPONSE: [email or web address] 09/10/06 at 05:23 pm ok to refill but needs appt before this runs out MEDICATIONS: DIOVAN ORAL TABLET 160 MG, 1 Every Day, 90 Dispensed, status: CONTINUED, 09/10/2006. printed out and ready to be signed/sp SECTION 2: DOCTOR`S RESPONSE: [email or web address] 09/10/06 at 05:55 pm done faxed to [facility] Electronically Signed by: Solange Vieyra on Sunday, September 10, 2006 documented in this encounter Plan of Treatment Not on file documented as of this encounter Visit Diagnoses Not on filedocumented in this encounter Care Teams Freight Air Brake Fitter Relationship Specialty Start Date End Date Adolfo Goyal MD [address] [place] [phone] PCP - General 03/22/07 03/16/21 documented as of this encounter
--- OUTSIDE RECORDS SUMMARY | 2025-03-09 11:27 | XMS_ITS | Encounter Summary ---
Author Organization [facility] Address [address] [place] [address] Care Team Providers Care Filter Press Tender Head Name Role Phone Adolfo Goyal MD Primary Care Provider Encounter Details Date Type Department Care Team (Late st Contact Info) Description 02/12/2006 Outpatient Historical [facility] Internal Medicine - [place] [address] [place] [address] Adolfo Goyal MD [address] [facility] [address] [place] [address] Social History Tobacco Use Types Packs/Day Years Used Date Smoking Tobacco: Never Assessed Sex and Gender Information Value Date Recorded Sex Assigned at Not on file Legal Sex Male 3:15 AM 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 Gender Identity Not on file Sexual Orientation Not on file documented as of this encounter Last Filed Vital Signs Vital Sign Reading Time Taken Comments Blood Pressure 130/70 02/12/2006 4:00 PM NUTRITION SERVICES AIDE Pulse 76 02/12/2006 4:00 PM NUTRITION SERVICES AIDE Temperature 36.7 C (98 F) 02/12/2006 4:00 PM NUTRITION SERVICES AIDE Respiratory Rate - - Oxygen Saturation - - Inhaled Oxygen Concentration - - Weight 110.7 kg (244 lb) 02/12/2006 4:00 PM NUTRITION SERVICES AIDE Height - - Body Mass Index - - documented in this encounter Plan of Treatment Not on file documented as of this encounter Visit Diagnoses Not on filedocumented in this encounter Care Teams Filter Press Tender Head Relationship Specialty Start Date End Date Adolfo Goyal MD [address] [place] [address] PCP - General 03/22/07 03/16/21 documented as of this encounter
--- OUTSIDE RECORDS SUMMARY | 2025-03-09 11:27 | XMS_ITS | Clinical Summary ---
Author Organization [facility] Address [address] [place] [address] Care Team Providers Care Coding Clerks Supervisor Name Role Phone Unavailable Primary Care Provider Unavailabl e Allergies Active Allergy Reactions Criticality Noted Date Comments No Known Allergies 12/10/2003 Medications celecoxib (CELEBREX) 100 mg Oral capsule Take 1 Cap by mouth 2 times daily. 270 Cap 3 04/12/2010 Active valsartan (DIOVAN) 160 mg Oral tabletIndication s:Essential hypertension, benign Take 1 Tab by mouth daily. 90 Tab 3 04/12/2010 Active Active Problems Problem Noted Date Diagnosed Date Nonspecific abnormal electrocardiogram (ECG) (EK G) 02/13/2008 Osteoarthrosis, unspecified whether generalized or localized, lower leg 02/13/2008 Essential hypertension, benign 08/15/2004 Allergic rhinitis due to other allergen 08/15/20 04 Resolved Problems Problem Noted Date Diagnosed Date Resolved Date Sprain and strain of unspeci fied site of knee and leg 02/28/2007 03/14/2009 Unspecified disorder of skin and subcutaneous tissue 02/28/2007 03/14/2009 Acute sinusitis, unspecified 02/12/2006 03/14/2009 Contact dermatitis and other eczema, due to unspecified cause 02/12/2006 03/14/2009 Lateral epicondylitis of elbow 12/05/2004 03/14/2009 Primary localized osteoarthrosis, hand 12/05/2004 03/14/2009 Lumbago 09/28/2004 03/14/2009 Sprain and strain of unspeci fied site of hip and thigh 08/15/2004 03/14/2009 Other malaise and fatigue 01/21/2004 Sleep disturbance, unspecified 01/21/2004 03/14/2009 Immunizations Immunization Administration Dates Next Due (ADACEL/BOOSTRIX)(10 YR UP) TDAP VACCINE, 0.5ML, IM 04/12/2010 (PNEUMOVAX 23)(50 YRS UP) PN EUMOCOCCAL POLYSACCHARIDE (PPV23) 0.5 ML, IM 04/12/2010 Family History Medical History Relation Name Comments Other Father MVA Colon Cancer Mother Relation Name Status Comments Father Mother Social History Tobacco Use Types Packs/Day Years Used Date Smoking Tobacco: Never Alcohol Use Standard Drinks/Week Comments No 0 (1 standard drink = 0.6 oz pur e alcohol) Sex and Gender Information Value Date Recorded Sex Assigned at Not on file Legal 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 Gender Identity Not on file Sexual Orientation Not on file Last Filed Vital Signs Vital Sign Reading Time Taken Comments Blood Pressure 120/84 04/12/2010 3:24 PM CDT Pulse 64 04/12/2010 3:24 PM CDT Temperature 36.9 C (98.5 F) 03/14/2009 3:08 PM CDT Respiratory Rate - - Oxygen Saturation - - Inhaled Oxygen Concentration - - Weight 120.7 kg (266 lb) 04/12/2010 3:24 PM CDT Height 185.4 cm (6' 1 ) 04/12/2010 3:24 PM CDT Body Mass Index 35.09 04/12/2010 3:24 PM CDT Plan of Treatment Health Maintenance Due Date Last Done Comments ZOSTER VACCINE (1 of 2) 1994 PNEUMOCOCCAL VACCINE 50+ YEARS (2 of 2 - PCV) 04/12/20 11 04/12/2010 RSV VACCINE (60+ or ) (1 - 1-dose 75+ series) 2019 DTAP/TDAP/TD VACCINES (2 - Td or Tdap) 04/12/2020 INFLUENZA VACCINE (#1) 2024 COLORECTAL SCREENING Discontinued 03/29/2007 Colorectal Cancer Screening Discontinued FIT-DNA Q 3 years Discontinued FIT/FOBT Q 1 year Discontinued Flex Sig/CT Colonography Q 5 years Discontinued Insurance
--- OUTSIDE RECORDS SUMMARY | 2025-03-09 11:27 | XMS_ITS | Encounter Summary ---
Author Organization [facility] Address [address] [place] [address] Care Team Providers Care Cub Reporter Name Role Phone Adolfo Goyal MD Primary Care Provider Encounter Details Date Type Department Care Team (Late st Contact Info) Description 04/27/[address] 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 Gender Identity Not on file Sexual Orientation Not on file documented as of this encounter Last Filed Vital Signs Vital Sign Reading Time Taken Comments Blood Pressure 140/80 04/27/2005 2:15 PM CDT Pulse 72 04/27/2005 2:15 PM CDT Temperature - - Respiratory Rate - - Oxygen Saturation - - Inhaled Oxygen Concentration - - Weight 112.5 kg (248 lb) 04/27/2005 2:15 PM CDT Height - - Body Mass Index - - documented in this encounter Plan of Treatment Not on file documented as of this encounter Visit Diagnoses Not on filedocumented in this encounter Care Teams Cub Reporter Relationship Specialty Start Date End Date Adolfo Goyal MD [address] [facility] [address] [place] [address] PCP - General 03/22/07 03/16/21 documented as of this encounter
== END 2025-03-09 10:28 | disposition home or self-care (01) ==
LOC: CHSIMG 10:28
PROVIDERS: PCP Internal Medicine; Visit Provider Internal Medicine
DX: N63.24 Unspecified lump in the left breast, lower inner quadrant (principal)
CPT/HCPCS: 76642; 77061; 77065; G0279

== ENCOUNTER 2025-03-29 09:44 | Outpatient (RCR) | payer MEDICARE, SELFPAY ==
--- NOTE | 2025-03-29 10:43 | PTOPEVAL1 ---
Assessment and note entered by Nabil Palacios Evaluation Information Assessment Status Evaluation ICD-10 Condition Codes (PT) Pain in right shoulder M25.511 Onset 01/22/25 Subjective Information Pt. reports a couple months of right shoulder pain . He states that he is predominantly left handed. He reports that pain limits his ability to reach overhead and behind his back. He states that he can no longer sleep on the right side without pain . He states that he has had previous shoulder pain that would subside, but this current bout has lasted much longer. He reports that he did have x-ray of the right shoulder. He did receive an injection 1 week ago, which helped to ease his pain. Still has slight pain that limits his overhead ability. His goal for therapy is to decrease his right shoulder pain and reach overhead with more ease. Reported Pain Level Pain Score 1: Self Report Assessment PT Clinical Summary Pt. is an 79 year old male who enters the clinic with a diagnosis of right shoulder pain. He presents with indication of right shoulder impingement syndrome on this date. He currently presents with decreased right shoulder ROM, impaired proximal right u.e. strength, impaired postural awareness and pain. Continued skilled PT is inidcated in order to improve these areas to allow the pt. to participate in all IADL's without limitation. Plan of Care Interventions Electrical Stimulation,Hot Pack/Cold Pack,Manual Therapy,Neuro Re-education,Patient/Caregiver Education,Therapeutic Activities,Therapeutic Exercise PT Services Indicated Yes Treatment Frequency and 2x/week x 12 visits Duration These treatments will address the objective and functional deficits as defined above. The patient will be advanced safely and appropriately in order for the patient to progress towards his/her prior level of function. Additional exercises will be introduced and as well as a comprehensive home exercise program upon discharge, if needed, ?to ensure carryover of functional gains achieved in the clinic. This treatment plan has been reviewed and agreement upon by the patient.
--- NOTE | 2025-04-30 10:50 | OPREHPOC ---
Outpatient Therapy Plan of Care This is a Multidisciplinary Plan of Care that may contain components documented by all disciplines (PT, OT, and ST.) PT Problem 1 PT Problem #1 Knowledge Deficit PT Goal 1 Goal / Goal Update Pt. will be independent with a HEP addressing shoulder mobility. Target Visit 2 Progress Met PT Problem 2 PT Problem #2 Pain PT Goal 1 Goal / Goal Update Pt. will report pain levels at 5/10 at worst with all overhead movements. -met Pt. will report being able to lay on the right side without pain disturbance -met Target Visit 12 Progress Met PT Problem 3 PT Problem #3 Impaired Range of Motion PT Goal 1 Goal / Goal Update Pt. will demonstrate 140 degrees of active right shoulder flexion against gravity -met Pt. will be able to reach to the mid thoracic region with the right u.e. for improved ease od dressing -met Target Visit 12 Progress Met PT Problem 4 PT Problem #4 Impaired Strength PT Goal 1 Goal / Goal Update Pt. will present with 4+/5 proximal right u.e. strength in all mm. groups -partially met Pt. will be able to lift 2-3# overhead for 10 reps with the right u.e. for ease of reaching into overhead cabinets. -progressing Target Visit 12 Progress Partially Met PT Problem 5 PT Problem #5 Impaired Functional Mobility PT Goal 1 Goal / Goal Update Pt. will demonstrate less than 10% limitation on the Quick DASH Target Visit 12 Progress Not Met
--- NOTE | 2025-04-30 10:50 | PTOPPROG ---
Assessment and note entered by Shannan Biggs, PT Evaluation Information Assessment Status Progress ICD-10 Condition Codes (PT) Pain in right shoulder M25.511 Onset 01/22/25 Subjective Information Pt reports his shoulder has not been painful today . He does have pain occasionally but reports because his right arm is his non-dominant arm he doesn't pay much attention to when his shoulder hurts and what causes pain. He also reports he sleeps lying on his L shoulder so he doesn't know if lying on his R would cause pain. He does feel like his strength has improved since starting PT. Assessment PT Clinical Summary Mr. Mary has attended 10 total skilled PT visits for R shoulder pain. Since beginning PT he has made good improvements in his R shoulder AROM and slight improvements in his R shoulder strength. His AROM is pain free however he did have some pain with resisted testing in shoulder abduction and ER. He notes only mild disability due to R shoulder pain and verbalizes this is due to his R shoulder being his non-dominant arm. He will benefit from continued skilled PT to keep progressing toward goals to improve functional use of the R shoulder. Plan of Care Interventions Electrical Stimulation,Hot Pack/Cold Pack,Manual Therapy,Neuro Re-education,Patient/Caregiver Education,Therapeutic Activities,Therapeutic Exercise PT Services Indicated Yes Treatment Frequency and Continue per original POC Duration These treatments will address the objective and functional deficits as defined above. The patient will be advanced safely and appropriately in order for the patient to progress towards his/her prior level of function. Additional exercises will be introduced and as well as a comprehensive home exercise program upon discharge, if needed, ?to ensure carryover of functional gains achieved in the clinic. This treatment plan has been reviewed and agreement upon by the patient.
--- NOTE | 2025-06-17 13:29 | PTOPDC ---
Assessment and note entered by Shannan Biggs, PT Evaluation Information Assessment Status Discharge - Pt Not Present ICD-10 Condition Codes (PT) Pain in right shoulder M25.511 Onset 01/22/25 Subjective Information See below Assessment PT Clinical Summary Mr. Mary attended 10 skilled PT visits for R shoulder pain. He was re-evaluated on 04/30/25 and was agreeable to finishing the last two therapy visits on his plan of care, however pt has not attended therapy since that visit. Upon chart review pt was having only minimal pain in the R shoulder and was not significantly impaired functionally as it was his non-dominant arm. We will discharge his chart this date. Plan of Care PT Services Indicated No
== END 2025-04-30 20:00 | disposition home or self-care (01) ==
LOC: CHSPT 09:44
PROVIDERS: Visit Provider Orthopaedic Surgery
DX: M19.011 Primary osteoarthritis, right shoulder (principal); M25.511 Pain in right shoulder; M75.111 Incomplete rotator cuff tear or rupture of right shoulder, not specified as traumatic
CPT/HCPCS: 97110; 97112; 97161; 97530

== ENCOUNTER 2025-06-16 15:52 | Outpatient (CLI) | payer MEDICARE, SELFPAY ==
--- NOTE | ~2025-06-16 | XR_ITS ---
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 Vertebral bod y heights are maintained. There is disc narrowing at L4-5 and L5-S1. There is facet hypertrophy at th malik levels. There is atherosclerosis of the aorta. No evidence for spondylolisthesis. Impression: 1: Moderate lumbar spondylosis with bulky bridging osteophytes. Progression of disc narrowing at L4-5 compared with prior examination. Reviewed, dictated and finalized at location A. Impression: 1: Moderate lumbar spondylosis with bulky bridging osteophytes. Progression of disc narrowing at L4-5 compared with prior examination.
--- NOTE | ~2025-06-16 | XR_ITS ---
XR hip BI wo pelvis 06/16/2025 16:09 Indication: Hip pain Procedure: 2 views each hip Comparison: 08/11/2024 Findings: There is bilateral osteoarthritis of the hips which is symmetric. No fracture, subluxation or dislocation. No soft tissue abnormality. No foreign bodies. 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 Reviewed, dictated and finalized at location A. 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
--- OUTSIDE RECORDS SUMMARY | 2025-06-16 15:56 | XMS_ITS | Encounter Summary ---
Author Organization [facility] Address 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
--- OUTSIDE RECORDS SUMMARY | 2025-06-16 15:56 | XMS_ITS | Encounter Summary ---
Author Organization [facility] Address [address] [place] [address] Care Team Providers Care Wrap Checker Name Role Phone Adolof Goyal MD Primary Care Provider Encounter Details Date Type Department Care Team (Late st Contact Info) Description 03/03/2004 Outpatient Historical [facility] [address] [place] [address] 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
--- OUTSIDE RECORDS SUMMARY | 2025-06-16 15:56 | XMS_ITS | Encounter Summary ---
Author Organization [facility] Address 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
--- OUTSIDE RECORDS SUMMARY | 2025-06-16 15:56 | XMS_ITS | Encounter Summary ---
Author Organization [facility] Address 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
--- OUTSIDE RECORDS SUMMARY | 2025-06-16 15:56 | XMS_ITS | Continuity of Care Document ---
Author Organization [facility] Address [address] [facility] [address] [place] [address] Phone Care Team Providers Care Insulation Sprayer Name Role Phone Eduardo Mejias MD Unavailable [...] times every day Not Available - Active ATORVASTATIN CALCIUM (unknown strength) Not Available - Active CELEBREX (unknown strength) Not Available - Active HYDROCHLOROTHIAZIDE (unknown strength) Not Available - Active Procedures [...] Providers Copied on Encounter [facility], [address], [place], [address], [place] tel:[phone] [facility] Spinal stenosis, lumbar [facility]ication[facility] 5 Magalie Eduardo. [address], [place], [place], [address], [place]. tel:[phone] Referring Provider: Chris Hurt, [address] [place], [address]. tel:[phone] [facility], [address], [place], [address], [place] tel:[phone] [facility] CervicalgiaSpi nal stenosis, lumbar region with neurogenic claudication 5 Magalie Eduardo. [address], [place], [place], [address], [place]. tel:[phone] Referring Provider: hCris Hurt, [address] [place], [address]. tel:[phone] [facility], [address], [place], [address], [place] tel:[phone] [facility] Spinal stenosis, lumbar region with neurogenic claudication 5 Magalie Eduardo. [address], [place], [place], [address], [place]. tel:[phone] OFFICE/OUTPA TIENT VISIT EST [facility], [address], [place], [address], [place] tel:[phone] [facility] Spinal stenosis, lumbar region with neurogenic claudicationCe rvical stenosis of spine 5 Magalie Eduardo. [address], [place], [place], [address], [place]. tel:[phone] Referring Provider: Chris Hurt, [address] [place], [address]. tel:[phone] [facility], [address], [place], [address], [place] tel:[phone] [facility] Pre-op testing 5 Magalie Eduardo. [address], [place], [place], [address], [place]. tel:[phone] [facility], [address], [place], [address], [place] tel:[phone] [facility] Spondylosis without myelopathy or radiculopathy, cervical regionPre-op testing 5 No Information [facility], [address], [place], [address], [place] tel:[phone] [facility] Spinal stenosis, lumbar region with neurogenic claudication 4 Magalie Eduardo. [address], [place], [place], [address], [place]. tel:[phone] OFFICE/OUTPA TIENT VISIT EST [facility], [address] [facility] [address], [place], [address], [place] tel:[phone] [facility] Low back pain, unspecifiedSpi nal stenosis, lumbar region with neurogenic claudicationCe rvicalgiaSpond ylosis without myelopathy or radiculopathy, cervical region 4 Magalie Eduardo. [address], [place], [place], [address], [place]. tel:[phone] Referring Provider: Tushar Sutton, [address] [place] [address] [address], [place], [address] . tel:[phone] OFFICE/OUTPA TIENT VISIT EST [facility], [address] [facility] [address], [place], [address], [place] tel:[phone] [facility] Low back pain, unspecifiedCer vicalgiaSpinal stenosis, lumbar region with neurogenic claudication 4 Magalie Eduardo. [address], [place], [place], [address], [place]. tel:[phone] Referring Provider: Tushar Sutton, [address] [place] [address] [address], [place], [address] . tel:[phone] OFFICE/OUTPA TIENT VISIT EST [facility], [address] [facility] [address], [place], [address], [place] tel:[phone] [facility] Left lumbar radiculopathyS maira stenosis, lumbar region with neurogenic claudicationDJ D (degenerative joint disease), lumbosacral Mar-0 [address], [place], [place], [address]. tel:[phone] Referring Provider: Tushar Sutton, [address] [place] [address] [address], [place], [address] . tel:[phone] [facility], [address] [facility] [address], [place], [address], [place] tel:[phone] [facility] Left lumbar radiculopathy 4 Al Lynn. [address] , [place], [place], [address]. tel:[phone] OFFICE/OUTPA TIENT VISIT EST [facility], [address], [address], [place] tel:[phone] [facility] Spinal stenosis, lumbar region with neurogenic claudicationLe ft lumbar radiculopathyD ELISSA (degenerative joint disease), lumbosacral Oct- 3 Al Calvinok. [address] [facility] [facility], [place], [place], [address]. tel:[phone] Referring Provider: Tushar Sutton, [address] [place] [address] Dr [address], [place], [address] . tel:[phone] OFFICE/OUTPA TIENT VISIT EST [facility], [address], [address], [place] tel:[phone] [facility] Status post total left knee replacement 3 L'Hommedibrook [place]. [address] [place] [facility], [place], [place], [address]. tel:[phone] Referring Provider: Tushar Sutton, [address] [place] [address] Dr [address], [place], [address] . tel:[phone] [facility], [address], [address], [place] tel:[phone] [facility] Lumbar radiculopathyS maira stenosis, lumbar region with neurogenic claudication 3 Al Lynn. [address] [facility], [place], [place], [address]. tel:[phone] OFFICE/OUTPA TIENT VISIT EST [facility], [address], [address], [place] tel:[phone] [facility] Lumbar radiculopathyS maira stenosis, lumbar region with neurogenic claudicationDJ D (degenerative joint disease), lumbosacral Sep- 3 Al Lynn. [address] [place] [facility], [place], [place], [address]. tel:[phone] Referring Provider: Tushar Sutton, [address] [place] [address] [address], [place], [address] . tel:[phone] [facility], [address], [address], [place] tel:[phone] [facility] Lumbar radiculopathy 3 Al Lynn. [address] [place] [facility], [place], [place], [address]. tel:[phone] [facility], [address], [address], [place] tel:[phone] [facility] Spinal stenosis, lumbar region with neurogenic claudication 3 No Information Referring Provider: Shane Melendez, [address] [place] [facility] [address], [place], [address] . tel:[phone] [facility], [address], [address], [place] tel:[phone] [facility] Lumbar stenosis with neurogenic claudication Aug- 3 Al Lynn. [address] [place] [facility], [place], [place], [address]. tel:[phone] OFFICE/OUTPA TIENT VISIT NEW [facility], [address] [address], [place], [address], [place] tel:[phone] [facility] Low back pain, unspecifiedBod y mass index [BMI] 34.0-34.9, adultLumbar stenosis with neurogenic claudicationDJ D (degenerative joint disease), lumbosacralLum bar radiculopathy Jul- 3 Al Lynn. [address] , [place], [place], [address]. tel:[phone] Referring Provider: Tushar Sutton, [address] [place] [address] [address], [place], [address] . tel:[phone] [facility], [address] [facility] [address], [place], [address], [place] tel:[phone] [facility] Status post total left knee replacement 3 L'Hommedieu [place]. [address] , [place], [place], [address]. tel:[phone] Referring Provider: Tushar Sutton, [address] [place] [address] Dr [address], [place], [address] . tel:[phone] [facility], [address] [address], [place], [address], [place] tel:[phone] [facility] Status post total left knee replacementBod y mass index [BMI] 34.0-34.9, adult 3 Garth Kuhn. [address] [place] [facility] [address], [place], [address]. tel:[phone] Referring Provider: Tushar Sutton, [address] [place] [address] Dr [address], [place], [address] . tel:[phone] [facility], [address] [address], [place], [address], [place] tel:[phone] [facility] Unilateral primary osteoarthritis , left knee 3 L'Hommedieu [place]. [address] [facility], [place], [place], [address]. tel:[phone] [facility], [address] [address], [place], [address], [place] tel:[phone] [facility] Primary osteoarthritis of left kneeStatus post total left knee replacement 3 L'Hommedieu [place]. [address] [facility], [place], [place], [address]. tel:[phone] OFFICE/OUTPA TIENT VISIT NEW [facility], [address] [address], [place], [address], [place] tel:[phone] [facility] Body mass index [BMI] 34.0-34.9, adultPain in left kneePrimary osteoarthritis of left kneeVarus deformity, not elsewhere classified, left knee 3 L'Hommedieu [place]. [address], [place], [place], [address]. tel:[phone] Referring Provider: Tushar Sutton, [address] [place] [address] [address], [place], [address] . tel:[phone] [facility], [address], [place], [address], tel:[phone] [facility] Pain in left knee 3 L'Hommedieu Navajo. [address], [place], [place], [address]. tel:[phone] Family History Family Member Type Diagnosis Age At Onset Mother Problem Cancer, colon Payers Payer name Insurance type Covered alliance party ID Blasa nitish(s) [employer] Medicare PPO [id number] [id number] Social History Type Description Quantity Date Captured [...] cervical ordered Referral Referred To: Eduardo Mejias [address] [place], [place], [id number] Ordered: Referrals: Allopathic & Osteopathic Physicians : [...] Lab Order Basic Me tabolic Panel (8) ([id number]), Ordered on: Ordered Future Order: Lab Order CBC With Differential/Platelet ([id number]), Ordered on: Ordered History Of Present Illness [...]
--- OUTSIDE RECORDS SUMMARY | 2025-06-16 15:56 | XMS_ITS | Encounter Summary ---
Author Organization [facility] Address [address] [place] [address] Care Team Providers Care Passenger Attendant Name Role Phone Adolfo Goyal MD Primary Care Provider Encounter Details Date Type Department Care Team (Latest Contact Info) Description 02/28/2007 Outpatient Historical [facility] Internal Medicine - [place] [address] [place] [address] Adolfo Goyal MD [address] [facility] [address] [place] [address] Essential Hypertension, Benign (Primary Dx) Social History Tobacco Use Types Packs/Day Years Used Date Smoking Tobacco: Never Assessed Sex and Gender Information Value Date Recorded Sex Assigned at Not on file 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 Gender Identity Not on file Sexual Orientation [...] HEMATOLOGY ORDERABLES Edite d Performing Organization Address [facility] de Phone Number INTERFACE SYSTEM Refer [...] HEMATOLOGY ORDERABLES Edite d Performing Organization Address [facility]/State/ZIP Co de Phone Number INTERFACE SYSTEM Refer [...] and non- Americans is available on the [facility] Intranet at: [email or web address] Select: Lab Policies and Procedures Select: Reference [...] classifications for lipids are available on the [facility] Intranet at: [email or web address] Select: Lab Policies and Procedures Select: Reference Ranges - Lipids 02/28/2007 11:1 3 AM CDT us Adolfo Goyal MD CHEMISTRY ORDERABLES Edited Performing Organization Address [facility] Co de Phone Number INTERFACE SYSTEM Refer to clinic/hospital department * PSA (02/28/2007 11:13 AM CDT) PSA 1.3 0.0 - 4.0 ng/mL INTERFACE SYSTEM Comment:Performed on [employer] E170 System 02/28/2007 11:1 3 AM CDT us Adolfo Goyal MD CHEMISTRY ORDERABLES Edited Performing Organization Address [facility] de Phone Number INTERFACE SYSTEM Refer to clinic/hospital department documented in this encounter Visit Diagnoses Diagnosis Essential hypertension, benign- Primary documented in this encounter Care Teams Passenger Attendant Relationship Specialty Start Date End Date Adolfo Goyal MD [address] [place] [id number] PCP - General 03/22/07 03/16/21 documented as of this encounter
--- OUTSIDE RECORDS SUMMARY | 2025-06-16 15:56 | XMS_ITS | Encounter Summary ---
Author Organization [facility] Address 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
--- OUTSIDE RECORDS SUMMARY | 2025-06-16 15:56 | XMS_ITS | Continuity of Care Document ---
Author Organization [facility] Address [address] [facility] [address] [place] [address] Phone Care Team Providers Care Knuckle Bender Name Role Phone Reynolds OD, Kam Unavailable Unavailable Advance Directives Directive Yes / No Effective Date File Name No Information Encounters Encounter Description Practice Location Reason(s) For Visit Diagnoses Date Provider Providers Copied on Encounter [facility], [address], [place], [place], [address], [place] tel:[phone] [facility] No Information Cornell-0 6-200 6 Reynolds OD Kam. [address], [place], [address], [place]. tel:[phone] Family History Family Member Type Diagnosis Age At Onset No Information Payers Payer name Insurance type Covered libertarian ID Authoriza tion(s) No Information Social History [...]
--- OUTSIDE RECORDS SUMMARY | 2025-06-16 15:56 | XMS_ITS | Encounter Summary ---
Author Organization [facility] Address 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
--- OUTSIDE RECORDS SUMMARY | 2025-06-16 15:56 | XMS_ITS | Referral Summary ---
Author Organization [facility] Address [address] [place] [address] Care Team Providers Care Lacquer Mixer Name Role Phone Chris Hurt MD Primary Care Provider Encounters Date Type Department Care Team Description 03/22/2025 10:15 AM CDT - 03/22/2025 11:59 PM CDT Hospital Encounter [facility] [address] [place] [address] Right shoulder pain, unspecified chronicity Discharge Disposition: Discharge to home or self care 03/22/2025 10:30 AM CDT Office Visit [facility] [address] [facility] [address] [place] [address] [place] [address] Meera Ocasio MD Right shoulder pain, unspecified chronicity (Primary Dx); Glenohumeral arthritis, right; Nontraumatic incomplete tear of right rotator cuff from Last 3 Months Allergies No known active allergies Medications hydroCHLOROthia [...] by mouth 2 (two) times a day Active celecoxib (CeleBREX) 100 mg capsule Take 1 capsule (100 mg total) by mouth as needed for pain Active oxyCODONE-aceta minophen (PERCOCET) 5-325 mg per tabletIndicatio ns:Pain Take 1-2 tablets by mouth every 8 (eight) hours as needed for pain 20 tablet Active Additional Information Patient not taking.Reported on 07/28/2024 Active Problems Problem Noted Date Diagnosed Date Lumbosacral spondylosis without myelopathy 02/13 Lumbar facet joint syndrome 02/13/2022 Primary osteoarthritis involving multiple joints 02/13/2022 Personal history of colonic polyps 12/06/2021 Overview (12/06/2021): Added automatically from request for surgery [id number] Encounter for screening colonoscopy 12/06/2021 Overview (12/06/2021): Added automatically from request for surgery [id number] Resolved Problems Problem Noted Date Diagnosed Date [...] on file 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 Gender Identity Not on file Sexual Orientation [...] 12:52 PM CDT Height 185.4 cm (6' 1) 07/28/2024 12:5 2 PM CDT Body Mass Index 34.21 07/28/2024 12:52 PM CDT Plan of Treatment Not on file Medical Devices Implanted Type Area General Clerk Device Identifier Shelf Expiration Date Model / Serial / Lot [employer] Progrip 15x9cm Self Assembler [employer] Rectangle Mesh Surgical Polyester Hernia [id number] - [id number] Implanted:Qty: 1 on 07/13/2024 by Faustino Henao MD at [facility] Left: Abdomen [employer] 01/22/2029 [id number] / / [id number] [employer] Progrip 15x9cm Self Assembler Le[employer]s Rectangle Mesh Surgical Polyester Hernia [id number] - [id number] Implanted:Qty: 1 on 07/13/2024 by Faustino Henao MD at [facility] Right: Abdomen [employer] 09/24/2028 [id number] / / [id number] Procedures Procedure Name Priority Date/Time Associated Diagnosis Comments [place] ARTHROCENTESIS ASPIR&/INJ MAJOR JT/BURSA W/O US Routine 03/22/2025 10:30 AM CDT Glenohumeral arthritis, 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 XR SHOULDER RIGHT 2 OR MORE VIEWS Schedule Routine, Read Routine (OP Routine) 03/22/2025 10:25 AM CDT Right shoulder pain, unspecified chronicity COLONOSCOPY 02/08/2022 7:21 AM CDT from Last 3 Months or Most Recently Relevant to Health Maintenance Results * KS ARTHROCENTESIS ASPIR&/INJ MAJOR JT/BURSA W/O US (03/22/2025 10:30 AM CDT) Narrative Meera Ocasio MD - 03/22/2025 10:30 AM CDT Meera Ocasio MD 03/22/2025 11:12 AM Large Joint Injection: R subacromial bursa Performed by: Meera Ocasio MD Authorized by: Meera Ocasio MD Large Joint Injection/Aspiration: Consent Given by: Patient Timeout: prior to procedure the correct patient, procedure, and site was verified Verbal consent obtained: Yes Supporting Documentation: Indications: Pain Procedure Details: Location: Shoulder Site: R subacromial bursa Prep: patient was prepped using a clean technique Needle Size: 22 G Approach: Lateral Ultrasound guided: No Fluroscopic guidance: No Medications: 4 mL BUPivacaine HCl 0.5 % (5 mg/mL); 4 mL lidocaine 10 mg/mL (1 %); 80 mg triamcinolone 40 mg/mL Patient tolerance: Patient tolerated the procedure well with no immediate complications Meera Ocasio MD IN CLINIC/BEDSIDE ORD ERABLES Final Result * XR Shoulder Right 2 or More Views (03/22/2025 10:25 AM CDT) Anatomical Region Laterality Modality Upper Extremities, Shoulder Right Comp uted Radiography 03/22/2025 10:5 3 AM CDT Impressions 03/22/2025 10:53 AM CDT Mild right shoulder osteoarthritis. Electronically signed by: Bharat Alvarez M.D. Narrative 03/22/2025 10:53 AM CDT EXAMINATION: XR SHOULDER RIGHT 2 OR MORE VIEWS HISTORY: Right shoulder pain FINDINGS: 4 views of the right shoulder were performed without prior comparison. Alignment of the shoulder is normal. There is moderate acromioclavicular and mild glenohumeral osteoarthritis. There is no acute fracture. Procedure Note Bharat Alvarez MD PhD - 04/28/2025 EXAMINATION: XR SHOULDER RIGHT 2 OR MORE VIEWS HISTORY: Right shoulder pain FINDINGS: 4 views of the right shoulder were performed without prior comparison. Alignment of the shoulder is normal. There is moderate acromioclavicular and mild glenohumeral osteoarthritis. There is no acute fracture. IMPRESSION: Mild right shoulder osteoarthritis. Electronically signed by: Bharat Alvarez M.D. us Meera Ocasio MD IMG XR PROCEDURES Fin al Result * COLONOSCOPY (02/08/2022 7:21 AM CDT) Anatomical Region Laterality Modality Other Narrative Procedure Note Florencio Corado MD - 02/08/2022 7:21 AM CDT [facility] Patient Name: Luis Mary Procedure Date: 02/08/2022 7:21 AM Date of : 1945 Admit Type: Outpatient Age: 76 Gender: Male Attending MD: Florencio Corado M.D. Room: [facility] ENDOSCOPY ROOM 2 Note Status: Finalized Patient [...] scope was passed under direct vision. TheColonoscope [id number] was introduced through the anus and advanced [...] 7:21 AM Procedure Code(s): --- Professional --- 96031, Colonoscopy, flexible; with removal of tumor(s), polyp(s), or other lesion(s) by snare technique Diagnosis Code(s): --- Professional --- K57.30, Diverticulosis of large intestine without perforation orabscess without bleeding Z80.0, Family history of malignant neoplasm of digestive organs D12.4, Benign neoplasm of descending colon K64.9, Unspecified hemorrhoids Z86.010, Personal history of colonic polyps CPT copyright 2020 [employer]. All rights reserved. The codes documented in this report are preliminary and upon breast trimmer reviewmay be revised to meet current compliance requirements. Recognized by the [employer] for promoting quality in endoscopy Florencio Corado MD ENDOSCOPY PROCEDURES Final Re sult from Last 3 Months or Most Recently Relevant to Health Maintenance Insurance AETNA [facility] PPO AETNA MEDICARE AET MEDICARE Advance Directives For more information, please contact: [phone] * Full Code (Latest Code Status on File) Date Activated Date Inactivated Comments 02/08/2022 7:28 AM 02/08/2022 1:53 PM * Full Code Date Activated Date Inactivated Comments 02/08/2022 7:28 AM 02/08/2022 7:28 AM Care Teams Lacquer Mixer Relationship Specialty Start Date End Date Chris Hurt MD PCP - General 03/19/17
--- OUTSIDE RECORDS SUMMARY | 2025-06-16 15:56 | XMS_ITS | Encounter Summary ---
Author Organization [facility] Address 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
--- OUTSIDE RECORDS SUMMARY | 2025-06-16 15:56 | XMS_ITS | Encounter Summary ---
Author Organization [facility] Address [address] [place] [address] Care Team Providers Care Lumber Salvager Name Role Phone Adolfo Goyal MD Primary Care Provider [phone] Encounter Details Date Type Department Care Team (Late st Contact Info) Description 02/28/2007 Orders Only [facility] Internal Medicine - [place] [address] [place] [address] Adolfo Goyal MD [address] [facility] [address] [place] [address] Social History Tobacco Use Types Packs/Day Years Used Date Smoking Tobacco: Never Assessed Sex and Gender Information Value Date Recorded Sex Assigned at Not on file 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 [...] 401.1-HYPERTENSION ESSENTIAL BENIGN LAB ORDERS: Order number: [id number] Test Ordered: CBC W/ DIFFERENTIAL 3150 Order number: [id number] Test Ordered: COMPREHENSIVE METABOLIC PANEL & GFR 1112 Order number: [id number] Test Ordered: LIPID PANEL 1078 Order number: [id number] Test Ordered: PSA, TOTAL 1002 844.9-SPRAINS AND STRAINS OF KNEE AND LEG LAB ORDERS: Order number: [id number] Test Ordered: XRAY KNEE, ROUTINE, LEFT (3 VIEWS) 709.9-SKIN LESION UNSPECIFIED see derm SPECIALTY REFERRAL: DERMATOLOGY Dr. Nathan Zarate ph. [phone] fax: [phone]. HEALTH MAINTENANCE: LAST PROSTATE EXAM: unk. PROSTATE [...] on filedocumented in this encounter Care Teams Lumber Salvager Relationship Specialty Start Date End Date Adolfo Goyal MD [address] [place] [address] [place] [address] PCP - General 03/22/07 03/16/21 documented as of this encounter
--- OUTSIDE RECORDS SUMMARY | 2025-06-16 15:56 | XMS_ITS | Encounter Summary ---
Author Organization [facility] Address [address] [place] [address] Care Team Providers Care Psychology Intern Name Role Phone Adolfo Goyal MD Primary Care Provider Encounter Details Date Type Department Care Team (Late st Contact Info) Description 04/21/2004 Outpatient Historical [facility] [address] [place] [address] 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
--- OUTSIDE RECORDS SUMMARY | 2025-06-16 15:56 | XMS_ITS | Encounter Summary ---
Author Organization [facility] Address 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 LAST VISIT: 02/12/06 PCP: Jay Jay WHO CALLED: Patient called. ALTERNATIVE PHONE NUMBER: [phone] CURRENT ALLERGY LIST: [facility] PHARM[facility]Y NUMBER: fax to [employer] [facility] SECTION 1: REQUESTED ACTION robyn 12/16/06 [...] on filedocumented in this encounter Care Teams Exhauster Engineer Relationship Specialty Start Date End Date Adolfo Goyal MD [address] [place] [address] PCP - General 03/22/07 03/16/21 documented as of this encounter
--- OUTSIDE RECORDS SUMMARY | 2025-06-16 15:56 | XMS_ITS | Encounter Summary ---
Author Organization [facility] Address 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 [address] [place] [address] PCP - General 03/22/07 03/16/21 documented as of this encounter
--- OUTSIDE RECORDS SUMMARY | 2025-06-16 15:56 | XMS_ITS | Encounter Summary ---
Author Organization [facility] Address 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
--- OUTSIDE RECORDS SUMMARY | 2025-06-16 15:56 | XMS_ITS | Encounter Summary ---
Author Organization [facility] Address 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
--- OUTSIDE RECORDS SUMMARY | 2025-06-16 15:56 | XMS_ITS | Encounter Summary ---
Author Organization [facility] Address 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
--- OUTSIDE RECORDS SUMMARY | 2025-06-16 15:56 | XMS_ITS | Encounter Summary ---
Author Organization [facility] Address [address] [place] [address] Care Team Providers Care Patent Searcher Name Role Phone Adolfo Goyal MD Primary Care Provider Encounter Details Date Type Department Care Team (Late st Contact Info) Description 02/12/2006 Outpatient Historical [facility] Internal Medicine - [place] [address] [place] [address] Adolfo Goyal MD [address] 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 Gender Identity Not on file Sexual Orientation Not on file documented as of this encounter Last Filed Vital Signs Vital Sign Reading Time Taken Comments Blood Pressure 130/70 02/12/2006 4:00 PM HEALTHCARE CONSULTANT Pulse 76 02/12/2006 4:00 PM HEALTHCARE CONSULTANT Temperature 36.7 C (98 F) 02/12/2006 4:00 PM HEALTHCARE CONSULTANT Respiratory Rate - - Oxygen Saturation - - Inhaled Oxygen Concentration - - Weight 110.7 kg (244 lb) 02/12/2006 4:00 PM HEALTHCARE CONSULTANT Height - - Body Mass Index - - documented in this encounter Plan of Treatment Not on file documented as of this encounter Visit Diagnoses Not on filedocumented in this encounter Care Teams Patent Searcher Relationship Specialty Start Date End Date Adolfo Goyal MD [address] [place] [place] [address] PCP - General 03/22/07 03/16/21 documented as of this encounter
--- OUTSIDE RECORDS SUMMARY | 2025-06-16 15:56 | XMS_ITS | Encounter Summary ---
Author Organization [facility] Address [address] [place] [address] Care Team Providers Care Cardiac Cath Tech Name Role Phone Adolfo Goyal MD Primary Care Provider Encounter Details Date Type Department Care Team (Latest Contact Info) Description 02/13/2008 Outpatient Historical [facility] Internal Medicine - [place] [address] [place] [address] Adolfo Goyal MD [address] [facility] [address] [place] [address] Essential Hypertension, Benign Social History Tobacco Use Types Packs/Day Years Used Date Smoking Tobacco: Never Assessed Sex and Gender Information Value Date Recorded Sex Assigned at Not on file 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 Gender Identity Not on file Sexual [...] CDT) RBC 5.26 4.50 - 5.40 M/uL [facility] MCHC 32.4 31.5 - 35.5 % [facility] MCV 90.3 82.0 - 99.0 fL [facility] PLATELETS 229 140 - 350 K/uL [facility] HEMOGLOBIN 15.4 13.6 - 16.5 g/dL [facility] RDW 13.9 11.5 - 14.5 % [facility] WBC 7.7 4.0 - 9.8 K/uL [facility] MCH 29.3 27.2 - 32.6 pg [facility] MPV 12.5(H) 9.3 - 12.4 fL [facility] HEMATOCRIT 47.5 40.0 - 48.0 % [facility] RDW-STDEV 45.5 37.1 - 48.7 fL [facility] MONOCYTES 7 3 - 13 % [facility] MONOCYTE ABSOLUTE 0.50 0.10 - 1.30 K/uL [facility] NEUTROPHILS 65 45 - 70 % [facility] NEUTROPHIL ABSOLUTE 5.02 1.90 - 7.00 K/uL [facility] EOSINOPHILS 1 0 - 7 % [facility] EOSINOPHIL ABSOLUTE 0.10 0.00 - 0.70 K/uL [facility] LYMPHOCYTES 26 16 - 45 % [facility] LYMPHOCYTE ABSOLUTE 2.03 0.70 - 4.50 K/uL [facility] BASOPHILS 1 0 - 2 % [facility] BASOPHILS ABSOLUTE 0.04 0.00 - 0.20 K/uL [facility] Blood specimen (specimen) 02/13/2008 8:03 PM CDT 02/13/2008 8:04 PM CDT us Adolfo Goyal MD HEMATOLOGY ORDERABLES Edite d INTERFACE SYSTEM Refer to clinic/hospital department [facility] [address] [place] [address] * (ABNORMAL) COMPREHENSIVE METABOLIC PANEL (02/13/2008 8:03 PM CDT) TOTAL PROTEIN 7.0 6.3 - 8.6 g/dL [facility] POTASSIUM 4.4 3.5 - 4.9 mmol/L [facility] GLUCOSE 116(H) 65 - 99 mg/dL [facility] AST 22 12 - 38 U/L [facility] BUN 15 6 - 20 mg/dL [facility] CALCIUM 9.5 8.4 - 10.2 mg/dL [facility] CHLORIDE 102 96 - 108 mmol/L [facility] ALBUMIN 4.3 3.4 - 4.8 g/dL [facility] CREATININE 0.87 0.67 - 1.17 mg/dL [facility] SODIUM 136 135 - 145 mmol/L [facility] ALT 36 0 - 41 U/L [facility] ALKALINE PHOSPHATASE 99 40 - 129 U/L [facility] BILIRUBIN TOTAL 0.4 0.2 - 1.0 mg/dL [facility] CO2 23 22 - 30 mmol/L [facility] GFR, >60 >=60 mL/min/1. 7 sq meter [facility] GFR >60 >=60 mL/min/1. 7 sq meter [facility] Comment: Estimated GFR rate interpretative information for both Americans and non- Americans is available on the [facility] Intranet at: [email or web address] Select: Lab Policies and Procedures Select: Reference Ranges - GFR Blood specimen (specimen) 02/13/2008 8:03 PM CDT 02/13/2008 8:03 PM CDT Adolfo Goyal MD CHEMISTRY ORDERABLES Edited Performing Organization Address City/[facility]/ZIP Co de Phone Number [facility] [address] [place] [address] * (ABNORMAL) LIPID PANEL (02/13/2008 8:03 PM CDT) HDL 31(L) 40 - 59 mg/dL [facility] CHOLESTEROL 188 100 - 199 mg/dL [facility] TRIGLYCERIDE 122 10 - 149 mg/dL [facility] CHOL/HDL RATIO 6.1(H) 2.0 - 5.0 [facility] LDL CALCULATED 133(H) <=99 mg/dL [facility] LIPID PANEL COMMENT See Below [facility] Comment: The adult ATP and pediatric NCEP classifications for lipids are available on the [facility] Intran[facility] at: [email or web address] Select: Lab Policies and Procedures,Current Select: Lipid Panel Interpretation Blood specimen (specimen) 02/13/2008 8:03 PM CDT 02/13/2008 8:03 PM CDT Adolfo Goyal MD CHEMISTRY ORDERABLES Edited [facility] [address] [place] [address] * PSA (02/13/2008 8:03 PM CDT) PSA 0.6 0.0 - 4.0 ng/mL [facility] Comment:ansiPerformed on Jake he Modular E170 System Blood specimen (specimen) 02/13/2008 8:03 PM CDT 02/13/2008 8:03 PM CDT Adolfo Goyal MD CHEMISTRY ORDERABLES Edited [facility] [address] [place] [address] documented in this encounter Visit Diagnoses Diagnosis Essential hypertension, benign documented in this encounter Care Teams Cardiac Cath Tech Relationship Specialty Start Date End Date Adolfo Goyal MD [address] [place] [id number] PCP - General 03/22/07 03/16/21 documented as of this encounter
--- OUTSIDE RECORDS SUMMARY | 2025-06-16 15:56 | XMS_ITS | Encounter Summary ---
Author Organization [facility] Address [address] [place] [address] Care Team Providers Care Program Strategist Name Role Phone Adolfo Goyal MD Primary Care Provider Encounter Details Date Type Department Care Team (Late st Contact Info) Description 03/07/2004 Outpatient Historical [facility] [address] [place] [address] 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
--- OUTSIDE RECORDS SUMMARY | 2025-06-16 15:56 | XMS_ITS | Encounter Summary ---
Author Organization [facility] Address [address] [place] [address] Care Team Providers Care Industrial Automation Engineer Name Role Phone Adolfo Goyal MD Primary Care Provider [phone] Encounter Details Date Type Department Care Team (Late st Contact Info) Description 09/28/2004 Outpatient Historical [facility] Internal Medicine - [place] [address] [place] [address] Adolfo Goyal MD [address] [place] [address] [place] [address] Social History Tobacco Use Types Packs/Day Years Used Date Smoking Tobacco: Never Assessed Sex and Gender Information Value Date Recorded Sex Assigned at Not on file Legal Sex Male 3:15 AM FISHER 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 Gender Identity Not on file Sexual Orientation Not on file documented as of this encounter Last Filed Vital Signs Vital Sign Reading Time Taken Comments Blood Pressure 120/80 09/28/2004 11:15 AM FISHER QUAHOG Pulse 82 09/28/2004 11:15 AM FISHER QUAHOG Temperature - - Respiratory Rate - - Oxygen Saturation - - Inhaled Oxygen Concentration - - Weight 109.3 kg (241 lb) 09/28/2004 11:15 AM FISHER QUAHOG Height - - Body Mass Index - - documented in this encounter Plan of Treatment Not on file documented as of this encounter Visit Diagnoses Not on filedocumented in this encounter Care Teams Industrial Automation Engineer Relationship Specialty Start Date End Date Adolfo Goyal MD [address] [facility] [address] [place] [address] PCP - General 03/22/07 03/16/21 documented as of this encounter
--- OUTSIDE RECORDS SUMMARY | 2025-06-16 15:56 | XMS_ITS | Encounter Summary ---
Author Organization [facility] Address [address] [place] [address] Care Team Providers Care Food Checkers And Cashiers Supervisor Name Role Phone Adolfo Goyal MD Primary Care Provider Encounter Details Date Type Department Care Team (Late st Contact Info) Description 02/13/2008 Orders Only [facility] Internal Medicine - [place] [address] [place] [address] Adolfo Goyal MD [address] [facility] [address] [place] [address] Social History Tobacco Use Types Packs/Day Years Used Date Smoking Tobacco: Never Assessed Sex and Gender Information Value Date Recorded Sex Assigned at Not on file Legal Sex Male 3:15 AM DRAGGER Gender Identity Not on file Sexual Orientation [...] Has no significant smoking history. 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 [...] status: CONTINUED, 02/13/2008. LAB ORDERS: Order number: [id number] Test Ordered: CBC W/ DIFFERENTIAL 3150 Order number: [id number] Test Ordered: COMPREHENSIVE METABOLIC PANEL & GFR 1112 Order number: [id number] Test Ordered: LIPID PANEL 1078 Order number: [id number] Test Ordered: PSA, TOTAL 1002 794.31-ABNORMAL EKG a fib on other reading but read for me it is just artifact LAB ORDERS: Order number: [id number] Test Ordered: EKG WITH INTERPRETATION AND REPORT [id number] 715.96-OSTEOARTHRITIS/DJD KNEE MEDICATIONS: CELEBREX ORAL CAPSULE CONVENTIONAL [...] filedocumented in this encounter Care Teams Food Checkers And Cashiers Supervisor Relationship Specialty Start Date End Date Adolfo Goyal MD [address] [place] [id number] PCP - General 03/22/07 03/16/21 documented as of this encounter
--- OUTSIDE RECORDS SUMMARY | 2025-06-16 15:56 | XMS_ITS | Continuity of Care Document ---
Author Organization [facility] Address [id number] [place] [address] [address] [place] [address] Phone Care Team Providers Care Cook Chief Name Role Phone Jw OD OD, Brenda [...] Providers Copied on Encounter [facility], [address] [place] [address], [id number], tel:[phone] OPH CONSULT JAYME COPELAND Pseudophakic (chief complaint) PresbyopiaEy e exam, routine Sep-0 - 4 Derheimer OD Brenda. [address] [facility], [address], [place], [place], [id number], [place]. tel:[phone] Referring Provider: Chris Hurt MD, [address] [place], [address]. tel:[phone] [facility], [address] [place] [address], [id number], tel:[phone] OPH CONSULT JAYME COPELAND 1 week PO OS (chief complaint) Presence of intraocular lens Dec-0 3 Derheimer OD Brenda. [address] [facility], [address], [place], [place], [id number], [place]. tel:[phone] Referring Provider: Chris Hurt MD, [address] [place], [address]. tel:[phone] [facility], [address] [place] [address], [id number], tel:[phone] OPH CONSULT JAYME COPELAND 1 Day Post op (chief complaint) Age-related nuclear cataract, bilateral Sep-3 0- 3 Skinner Rose. [address] [place] [address], [address] [facility], [place], [place], [id number], . tel:[phone] Referring Provider: Chris Hurt MD, [address] [place], [address]. tel:[phone] [facility], [address] [place] [address], [place], [id number], [place] tel:[phone] [facility] [place] No Information Nov-2 3 Miguel Mata. [address], [address], [place], [place], [id number], [place]. tel:[phone] Referring Provider: Chris Hurt MD, [address] [place], [address]. tel:[phone] [facility], [address] [place] [address], [place], [id number], [place] tel:[phone] OPH CONSULT JAYME COPELAND post op (chief complaint) Presence of intraocular lens Sep-- 3 James Pate. [address], [address], [place], [place], [id number], [place]. tel:[phone] Referring Provider: Chris Hurt MD, [address] [place], [address]. tel:[phone] [facility], [address] [place] [address], [id number], [place] tel:[phone] OPH CONSULT JAYME COPELAND 1 Day post op (chief complaint) Presence of intraocular lens Sep-0 3 Brody Rose. [address] [facility], [address], [place], [place], [id number], [place]. tel:[phone] Referring Provider: Chris Hurt MD, [address] [place], [address]. tel:[phone] [facility], [address] [place] [address], [id number], [place] tel:[phone] [facility] [place] No Information 0 3 Miguel Mata. [address], [address], [place], [place], [id number], [place]. tel:[phone] Referring Provider: Chris Hurt MD, [address] [place], [address]. tel:[phone] [facility], [address] [place] [address], [id number], [place] tel:[phone] OPH CONSULT JAYME COPELAND No Information 3 Miguel Mata. [address], [address], [place], [place], [id number], [place]. tel:[phone] Referring Provider: Chris Hurt MD, [address] [place], [address]. tel:[phone] OFFICE/OUTPA TIENT VISIT, EST [facility], [address] [place] [address], [id number], [place] tel:[phone] OPH CONSULT JAYME COPELAND Cataracts (chief complaint) Age-related nuclear cataract, bilateralVit reous degeneration , bilateralTea r film insufficienc y, bilateral 3 Derheimer OD Brenda. [address], [place], [place], [id number], [place]. tel:[phone] Referring Provider: Chris Hurt MD, [address] [place], [address]. tel:[phone] [facility], [address] [place] [address], [id number], [place] tel:[phone] OPH CONSULT JAYME COPELAND blurry vision (chief complaint) PresbyopiaAg e-related nuclear cataract, bilateralVit reous degeneration , bilateralTea r film insufficienc y, bilateral 2 Derheimer OD Brenda. [address], [address], [place], [place], [id number], [place]. tel:[phone] Referring Provider: Chris Hurt MD, [address] [place], [address]. tel:[phone] [facility], [address] [place] [address], [id number], [place] tel:[phone] OPH CONSULT JAYME COPELAND cataract check (chief complaint) Age-related nuclear cataract, bilateralVit reous degeneration , bilateralPre sbyopia 1 James Pate. [address], [address], [place], [place], [id number], [place]. tel:[phone] Referring Provider: Family Friends A. OFFICE/OUTPA TIENT VISIT, EST [facility], [address] [place] [address], [id number], [place] tel:[phone] OPH CONSULT [facility] floaters (chief complaint) Age-related nuclear cataract, bilateralDry eye syndrome of bilateral lacrimal glandsDermat ochalasis of left upper eyelidDermat ochalasis of right upper eyelidVitreo us degeneration , bilateral 0 Derheimer OD Brenda. [address], [address], [place], [place], [id number], [place]. tel:[phone] Referring Provider: Herlinda Anton, [address], [place], [address]. tel:[phone] OFFICE/OUTPA TIENT VISIT, NEW [facility], [address] [place] [address], [id number], [place] tel:[phone] OPH CONSULT JAYME COPELAND cataract check (chief complaint) Age-related nuclear cataract, bilateralDer matochalasis of left upper eyelidDermat ochalasis of right upper eyelidDry eye syndrome of bilateral lacrimal glandsVitreo us degeneration , left eyeOther vitreous opacities, right eye 8 Derheimer OD Brenda. [address], [address], [place], [place], [id number], [place]. tel:[phone] Referring Provider: Brenda Escalera OD, [address], [place], [address]. tel:[phone] OFFICE/OUTPA TIENT VISIT, EST [facility], [address] [place] [address], [id number], [place] tel:[phone] OPH CONSULT JAYME COPELAND Other vitreous opacitiesSen ile nuclear sclerosisPre sbyopia 0 4 James Pate. [address], [address], [place], [place], [id number], [place]. tel:[phone] Referring Provider: Herlinda Anton, [address], [place], [address]. tel:[phone] OFFICE/OUTPA TIENT VISIT, NEW [facility], [address], [place], [place], [id number], [place] tel:[phone] OPH CONSULT JAYME COPELAND Senile nuclear sclerosisOth er vitreous opacities 3 Ivanna Quiñones. [address] [facility], [address], [place], [place], [id number], [place]. tel:[phone] Referring Provider: Ishmael Koo, [address] [facility] [address], [place], [address]. tel:[phone] Family History Family Member Type Diagnosis Age At Onset Problem (finding) No family history of Hy pertension Problem (finding) No family hist ory of Macular degeneration Problem (finding) No family history of Gl aucoma Problem (finding) No family history of Di abetes mellitus Payers Payer name Insurance type Covered libertarian ID Authoriza tion(s) [employer] Medicare CI [id number] [employer] CI [id number] Social History Type Description Quantity Date Captured Comments Alcohol Use Details Caffeine Use Details No Tobacco Use Status Current non-smoker 24 Smoking Status Never smoker Non-Smoking Tobacco Use Details : No Details Available : No Details Available Sex Male Chief Complaint And Reason For Visit From encounter dated '07/31/2024 10:55'. Pseudophakic (chief complaint). Description: The 78 year [...] Radiology Order Serrano ag-Merissa Lenstar [id number] JAYME ([id number]), Sent on: Sent Future Order: Radiology Order Ze iss IOL Master JAYME ([id number]), Sent on: Sent History Of Present Illness [...] today. OS scheduled 10/23/[address] Martin aqgy-psbh-vybq and AT, might need another refill of compoundIf he runs a day or two short on dqrs-orva-ddlm should he just switch to pred-brom?OC patient 1 Day post op The 78 year old male presents for evaluation of 1 Day post op OD, ST DV. Using Ixyl-Svmw-Wqqq TID. No pain or discomfort. Vision is [...] Information Instructions Date Instruction Additional Infor nathalia Impression/Plan Related to Presb yopia Impression/Plan Related to Eye e xam, routine Impression/Plan Related to Prese nce of intraocular lens Impression/Plan Related to Age-r elated nuclear cataract, bilateral Impression/Plan Related to Prese nce of intraocular lens Impression/Plan Related to Prese nce of intraocular lens Impression/Plan Related to Vitre ous degeneration, bilateral Impression/Plan 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, bilateral Impression/Plan Related to Age-r elated nuclear [...] of bilateral lacrimal glands Impression/Plan Related to Wever tochalasis of left upper eyelid Impression/Plan Related to Wever tochalasis of right upper eyelid Impression/Plan Related to Vitre ous degeneration, bilateral Impression/Plan Related to Wever tochalasis of right upper eyelid Impression/Plan Related to Wever tochalasis of left upper eyelid Impression/Plan Related [...]
--- OUTSIDE RECORDS SUMMARY | 2025-06-16 15:56 | XMS_ITS | Encounter Summary ---
Author Organization [facility] Address 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 Gender Identity Not on file Sexual Orientation Not on file documented as of this encounter Last Filed Vital Signs Vital Sign Reading Time Taken Comments Blood Pressure 150/90 12/10/2003 4:00 PM TECHNICAL PRODUCER Pulse 80 12/10/2003 4:00 PM TECHNICAL PRODUCER Temperature - - Respiratory Rate - - Oxygen Saturation - - Inhaled Oxygen Concentration - - Weight 108 kg (238 lb) 12/10/2003 4:00 PM TECHNICAL PRODUCER Height - - Body Mass Index - - documented in this encounter Plan of Treatment Not on file documented as of this encounter Visit Diagnoses Not on filedocumented in this encounter Care Teams Lieutenant Firefighter Relationship Specialty Start Date End Date Adolfo Goyal MD [address] [facility] [address] [place] [address] PCP - General 03/22/07 03/16/21 documented as of this encounter
--- OUTSIDE RECORDS SUMMARY | 2025-06-16 15:56 | XMS_ITS | Encounter Summary ---
Author Organization [facility] Address [address] [place] [address] Care Team Providers Care Staff Air Defense Officer Name Role Phone Adolfo Goyal MD Primary Care Provider Encounter Details Date Type Department Care Team (Late st Contact Info) Description 09/10/2006 Orders Only [facility] Internal Medicine - [place] [address] [place] [address] Adolfo Goyal MD [address] [facility] [address] [place] [address] Social History Tobacco Use Types Packs/Day Years Used Date Smoking Tobacco: Never Assessed Sex and Gender Information Value Date Recorded Sex Assigned at Not on file Legal 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 LAST VISIT: 02/12/06 PCP: srinivas WHO CALLED: Patient called. ALTERNATIVE PHONE NUMBER: [phone] CURRENT ALLERGY LIST: [facility] NUMBER: fax [...] refilled without a fu-please advise DOCTOR`S RESPONSE: madan 09/10/06 at 05:23 pm ok to refill but needs appt before this runs out MEDICATIONS: DIOVAN ORAL TABLET 160 MG, 1 Every Day, 90 Dispensed, status: CONTINUED, 09/10/2006. printed out and ready to be signed/sp SECTION 2: DOCTOR`S RESPONSE: madan 09/10/06 at 05:55 pm done [facility]ed [facility] Electronically Signed by: Solange Vieyra on Sunday, September 10, 2006 documented in this encounter Plan of Treatment Not on file documented as of this encounter Visit Diagnoses Not on filedocumented in this encounter Care Teams Staff Air Defense Officer Relationship Specialty Start Date End Date Adolfo Goyal MD [address] [facility] [address] [place] [address] PCP - General 03/22/07 03/16/21 documented as of this encounter
--- OUTSIDE RECORDS SUMMARY | 2025-06-16 15:56 | XMS_ITS | Clinical Summary ---
Author Organization [facility] Address [address] [place] [address] Care Team Providers Care Legal Transcriptionist Name Role Phone Chris Hurt MD Primary Care Provider [phone] Source Comments [facility],non-owned Affiliates and Associated Physician Practices is amultiple site organization consisting of ambulatory clinics and hospital sitesin [place], [place], [place] and [place]. This disclosure is being madepursuant to the Care Everywhere program and may not contain all information available regarding this patient. Last updated 18.[facility] Allergies No known active allergies Medications * [...] Diagnosed Date Lumbar stenosis with neurogenic claudication Family History Medical History Relation Name Comments [...] on file Legal Sex Male 6:15 AM MACHINIST MECHANIC Gender Identity Not on file Sexual Orientation Not on file Last Filed Vital Signs Vital Sign Reading Time Taken Comments Blood Pressure 137/68 12/09/2024 2:59 PM MACHINIST MECHANIC after amb. with therapy Pulse 49 12/09/2024 2:59 PM MACHINIST MECHANIC Temperature 36.4 C (97.6 F) 12/09/2024 11:04 AM MACHINIST MECHANIC Respiratory Rate 18 12/09/2024 11:0 4 AM MACHINIST MECHANIC Oxygen Saturation 97% 12/09/2024 2:5 9 PM MACHINIST MECHANIC Inhaled Oxygen Concentration - - Weight 119.3 kg (263 lb) 12/08/2024 8:1 5 AM MACHINIST MECHANIC Height 185.4 cm (6' 1) 12/08/2024 8:15 AM MACHINIST MECHANIC Body Mass Index 34.7 12/08/2024 8:15 AM MACHINIST MECHANIC Plan of Treatment Health Maintenance Due Date [...] MEDICARE AWV CALENDAR YEAR 2024 INFLUENZA VACCINE (#1) 2025 HEPATITIS B VACCINE Aged Out No [...] on patient's age to complete this topic Insurance AETNA AETNA MEDICARE ADV Advance Directives * Full Code (Latest Code Status on File) Date Activated Date Inactivated Comments 12/08/2024 4:48 PM 12/09/2024 4:39 PM Care Teams Legal Transcriptionist Relationship Specialty Start Date End Date Chris Hurt MD [address] [place] [address] PCP - General Internal Medicine 07/16/17
--- OUTSIDE RECORDS SUMMARY | 2025-06-16 15:56 | XMS_ITS | Encounter Summary ---
Author Organization [facility] Address 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
--- OUTSIDE RECORDS SUMMARY | 2025-06-16 15:56 | XMS_ITS | Clinical Summary ---
Author Organization [facility] Address [address] [place] [address] Care Team Providers Care Performance Improvement Consultant Name Role Phone Chris Hurt MD Primary Care Provider [phone] Allergies No known active allergies Medications hydroCHLOROthia [...] (12/06/2021): Added automatically from request for surgery [id number] Encounter for screening colonoscopy 12/06/2021 Overview (12/06/2021): Added automatically from request for surgery [id number] Resolved Problems Problem Noted Date Diagnosed Date [...] were answered. They are understanding and agreeable. 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 03/22/2025 10:15 AM CDT - 03/22/2025 11:59 PM CDT Hospital Encounter [facility] [address] [place] [address] Right shoulder pain, unspecified chronicity Discharge Disposition: Discharge to home or self care from Last 3 Months Surgical History Surgery Date Site/Laterality Comments COLONOSCOPY [...] on file Legal Sex Male 2:00 AM MEDICAL TECHNOLOGIST PRN Gender Identity Not on file Sexual Orientation [...] Screening Discontinued Medical Devices Implanted Type Area Front End Wheel Loader Operator Device Identifier Shelf Expiration Date Model / Serial / Lot [employer] Progrip 15x9cm Self Ob Gyn Physician Assistant Rectangle Mesh Surgical Polyester Hernia [id number] - [id number] Implanted:Qty: 1 on 07/13/2024 by Faustino Henao MD at [facility] Left: Abdomen [employer] 01/22/2029 [id number] / / [id number] [employer] Progrip 15x9cm Self Ob Gyn Physician Assistant Rectangle Mesh Surgical Polyester Hernia [id number] - [id number] Implanted:Qty: 1 on 07/13/2024 by Faustino Henao MD at [facility] Right: Abdomen [employer] 09/24/2028 [id number] / / [id number] Procedures Procedure Name Priority Date/Time Associated Diagnosis Comments ME ARTHROCENTESIS ASPIR&/INJ MAJOR JT/BURSA W/O US Routine 03/22/2025 10:30 AM CDT Glenohumeral arthritis, 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 XR SHOULDER RIGHT 2 OR MORE VIEWS Schedule Routine, Read Routine (OP Routine) 03/22/2025 10:25 AM CDT Right shoulder pain, unspecified chronicity COLONOSCOPY 02/08/2022 7:21 AM CDT from Last 3 Months or Most Recently Relevant to Health Maintenance Results * ME ARTHROCENTESIS ASPIR&/INJ MAJOR JT/BURSA W/O US (03/22/2025 [...] Procedure Note Bharat Alvarez MD PhD - 03/22/2025 EXAMINATION: XR SHOULDER RIGHT 2 OR MORE [...] Corado MD - 02/08/2022 7:21 AM CDT [facility] Patient Name: Luis Mary Procedure Date: 02/08/2022 7:21 AM Date of : 1945 Admit Type: Outpatient Age: 76 Gender: Male Attending MD: Florencio Corado M.D. Room: [facility] ENDOSCOPY ROOM 2 Note Status: Finalized Patient [...] scope was passed under direct vision. TheColonoscope [id number] was introduced through the anus and advanced [...] 7:21 AM Procedure Code(s): --- Professional --- 72544, Colonoscopy, flexible; with removal of tumor(s), polyp(s), or other lesion(s) by snare technique Diagnosis Code(s): --- Professional --- K57.30, Diverticulosis of large intestine without perforation orabscess without bleeding Z80.0, Family history of malignant neoplasm of digestive organs D12.4, Benign neoplasm of descending colon K64.9, Unspecified hemorrhoids Z86.010, Personal history of colonic polyps CPT copyright 2020 [employer]. All rights reserved. The codes documented in this report are preliminary and upon personnel recruiter reviewmay be revised to meet current compliance requirements. Recognized by the [employer] for promoting quality in endoscopy Florencio Corado MD ENDOSCOPY PROCEDURES Final Re sult from Last 3 Months or Most Recently Relevant to Health Maintenance Insurance [facility] AETNA MEDICARE AETNA MEDICARE Advance Directives For more information, please contact: [phone] * Full Code (Latest Code Status on File) Date Activated Date Inactivated Comments 02/08/2022 7:28 AM 02/08/2022 1:53 PM * Full Code Date Activated Date Inactivated Comments 02/08/2022 7:28 AM 02/08/2022 7:28 AM Care Teams Performance Improvement Consultant Relationship Specialty Start Date End Date Chris Hurt MD PCP - General 03/19/17
--- OUTSIDE RECORDS SUMMARY | 2025-06-16 15:56 | XMS_ITS | Encounter Summary ---
Author Organization [facility] Address [address] [place] [address] Care Team Providers Care Clinical Rn Liaison Name Role Phone Adolfo Goyal MD Primary Care Provider Encounter Details Date Type Department Care Team (Late st Contact Info) Description 12/05/2004 Outpatient Historical [facility] Internal Medicine - [place] [address] [place] [address] Adolfo Goyal MD [address] [place] [address] Social History Tobacco Use Types Packs/Day Years Used Date Smoking Tobacco: Never Assessed Sex and Gender Information Value Date Recorded Sex Assigned at Not on file Legal Sex Male 3:15 AM AVIONICS ENGINEER Gender Identity Not on file Sexual Orientation Not on file documented as of this encounter Last Filed Vital Signs Vital Sign Reading Time Taken Comments Blood Pressure 140/80 12/05/2004 4:00 PM AVIONICS ENGINEER Pulse 86 12/05/2004 4:00 PM AVIONICS ENGINEER Temperature - - Respiratory Rate - - Oxygen Saturation - - Inhaled Oxygen Concentration - - Weight 112 kg (247 lb) 12/05/2004 4:00 PM AVIONICS ENGINEER Height - - Body Mass Index - - documented in this encounter Plan of Treatment Not on file documented as of this encounter Visit Diagnoses Not on filedocumented in this encounter Care Teams Clinical Rn Liaison Relationship Specialty Start Date End Date Adolfo Goyal MD [address] [facility] [address] [place] [address] PCP - General 03/22/07 03/16/21 documented as of this encounter
--- OUTSIDE RECORDS SUMMARY | 2025-06-16 15:56 | XMS_ITS | Encounter Summary ---
Author Organization [facility] Address [address] [place] [address] Care Team Providers Care Senior Trainer Name Role Phone Adolfo Goyal MD Primary Care Provider Encounter Details Date Type Department Care Team (Late st Contact Info) Description 02/13/2008 Outpatient Historical [facility] Internal Medicine - [place] [address] [place] [address] Adolfo Goyal MD [address] [place] [address] Social History Tobacco Use Types Packs/Day Years Used Date Smoking Tobacco: Never Assessed Sex and Gender Information Value Date Recorded Sex Assigned at Not on file Legal Sex Male 3:15 AM FILM RECORDIST Gender Identity Not on file Sexual Orientation Not on file documented as of this encounter Plan of Treatment Not on file documented as of this encounter Visit Diagnoses Not on filedocumented in this encounter Care Teams Senior Trainer Relationship Specialty Start Date End Date Adolfo Goyal MD [address] [facility] [address] [place] [address] PCP - General 03/22/07 03/16/21 documented as of this encounter
--- OUTSIDE RECORDS SUMMARY | 2025-06-16 15:57 | XMS_ITS | Clinical Summary ---
Author Organization [facility] Address [address] [place] [address] Care Team Providers Care Automotive Metalsmith Name Role Phone Unavailable Primary Care Provider [...] on file Legal Sex Male 3:15 AM LEAD INSPECTOR Gender Identity Not on file Sexual Orientation [...] 3:24 PM CDT Height 185.4 cm (6' 1) 04/12/2010 3:24 PM CDT Body Mass Index 35.09 04/12/2010 3:24 PM CDT Plan of Treatment Health Maintenance Due Date Last Done Comments ZOSTER VACCINE (1 of 2) 1994 PNEUMOCOCCAL VACCINE 50+ YEARS (2 of 2 - PCV) 04/12/20 11 04/12/2010 RSV VACCINE (60+ or ) (1 - 1-dose 75+ series) 2019 DTAP/TDAP/TD VACCINES (2 - Td or Tdap) 04/12/2020 INFLUENZA VACCINE (#1) 2025 COLORECTAL SCREENING Discontinued 03/29/2007 Colorectal Cancer Screening Discontinued FIT-DNA Q 3 years Discontinued FIT/FOBT Q 1 year Discontinued Flex Sig/CT Colonography Q 5 years Discontinued Insurance
--- OUTSIDE RECORDS SUMMARY | 2025-06-16 15:57 | XMS_ITS | Encounter Summary ---
Author Organization [facility] Address 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
== END 2025-06-16 15:53 | disposition home or self-care (01) ==
LOC: CHSIMG 15:54
PROVIDERS: PCP Internal Medicine; Visit Provider Internal Medicine
DX: M54.50 Low back pain, unspecified (principal); M25.552 Pain in left hip; M25.551 Pain in right hip; M43.06 Spondylolysis, lumbar region; M25.78 Osteophyte, vertebrae; M16.0 Bilateral primary osteoarthritis of hip
CPT/HCPCS: 72100; 73521

== ENCOUNTER 2025-06-22 13:06 | Outpatient (RCR) | payer MEDICARE, SELFPAY ==
--- NOTE | 2025-06-22 14:00 | OPREHPOC ---
Outpatient Therapy Plan of Care This is a Multidisciplinary Plan of Care that may contain components documented by all disciplines (PT, OT, and ST.) PT Problem 1 PT Problem #1 Knowledge Deficit PT Goal 1 Goal / Goal Update The patient will be independent in a home exercise program. Target Visit 2 PT Problem 2 PT Problem #2 Pain PT Goal 1 Goal / Goal Update The patient will report 2/10 or less left low back pain with standing of 30 minutes. Target Visit 10 PT Problem 3 PT Problem #3 Impaired Functional Mobility PT Goal 1 Goal / Goal Update The patient will demonstrate 20% or less self perceived disability per the back index questionnaire. Target Visit 10 PT Problem 4 PT Problem #4 Impaired Strength PT Goal 1 Goal / Goal Update The patient will demonstrate 4/5 bilateral hip extension, hip abduction, and lower abdominal strength to provide support to the lumbar spine for lifting.
--- NOTE | 2025-06-22 14:01 | PTOPEVAL1 ---
Assessment and note entered by Mary Justice, PT Evaluation Information Assessment Status Evaluation ICD-10 Condition Codes (PT) Pain in low back M54.50 Onset 06/17/25 Subjective Information Luis Mary reports he started having pain in the left lower back that started 1-2 months ago for unknown reasons. He notes the pain is about the same since it started. He does have a history of lumbar spine surgery in November 2024 and left knee replaced about 2-3 years ago. He notes the pain he is having now in the lower back is different than the pain he had after surgery. He was referred to PT by his PCP. He notes the pain in the left lower back is worse with standing up and limits his standing to 1/2 hour. He notes all activity is harder now. He had x-rays that showed progression of narrowing at L4-5 and moderate bilateral hip OA. Reported Pain Level Pain Score 1: Self Report Assessment PT Clinical Summary Luis Mary presents with left lower back pain that started 1-2 months ago for unknown reasons. He has a history of lumbar surgery in November 2024 but denies pain following that surgery. His recent pain is worse with standing up and prolonged standing. He discomfort with all daily activities as a result and notes inability to lift items from the floor. He objectively demonstrates decreased lumbar AROM, pain elicited with active lumbar extension, weakness in the core and L > R hip, and positive special tests consistent with lumbar nerve root irritation. He will benefit from skilled PT to address these limitations. Plan of Care Interventions Electrical Stimulation,Hot Pack/Cold Pack,Manual Therapy,Neuro Re-education,Patient/Caregiver Education,Therapeutic Activities,Therapeutic Exercise PT Services Indicated Yes Treatment Frequency and 2 times a week for 10 visits. Duration These treatments will address the objective and functional deficits as defined above. The patient will be advanced safely and appropriately in order for the patient to progress towards his/her prior level of function. Additional exercises will be introduced and as well as a comprehensive home exercise program upon discharge, if needed, ?to ensure carryover of functional gains achieved in the clinic. This treatment plan has been reviewed and agreement upon by the patient.
--- NOTE | 2025-07-22 15:13 | OPREHPOC ---
Outpatient Therapy Plan of Care This is a Multidisciplinary Plan of Care that may contain components documented by all disciplines (PT, OT, and ST.) PT Problem 1 PT Problem #1 Knowledge Deficit PT Goal 1 Goal / Goal Update The patient will be independent in a home exercise program. Target Visit 2 Progress Met PT Problem 2 PT Problem #2 Pain PT Goal 1 Goal / Goal Update The patient will report 2/10 or less left low back pain with standing of 30 minutes. Target Visit 10 Progress Not Met PT Problem 3 PT Problem #3 Impaired Functional Mobility PT Goal 1 Goal / Goal Update The patient will demonstrate 20% or less self perceived disability per the back index questionnaire. Target Visit 10 Progress Not Met PT Problem 4 PT Problem #4 Impaired Strength PT Goal 1 Goal / Goal Update The patient will demonstrate 4/5 bilateral hip extension, hip abduction, and lower abdominal strength to provide support to the lumbar spine for lifting. Progress Partially Met
--- NOTE | 2025-07-22 15:13 | PTOPDC ---
Assessment and note entered by Mary Justice, PT Evaluation Information Assessment Status Discharge ICD-10 Condition Codes (PT) Pain in low back M54.50 Onset 06/17/25 Subjective Information Luis Mary reports he has been having worse low back pain recently. He has increased pain when he first stands up from sitting or laying and notes it takes several steps for him to be able to walk normal. He knows he has worsening of narrowing at L4-5 and that he has other areas in his back that has issues as well. He plans to see his spine surgeon in July. He would like to hold off on PT until he does. Reported Pain Level Pain Score 5: Self Report Assessment PT Clinical Summary Luis Mary has completed 10 skilled PT visits for left lower back pain. He has a history of lumbar surgery in November 2024 but denies pain following that surgery. He has noted an increase in his low back pain that continues to be worse with standing up and prolonged standing. He feels his gait has declined because of low back pain as well. He objectively demonstrates decreased lumbar AROM, pain elicited with active lumbar extension, weakness in the core and L > R hip. He will be discharged from skilled PT and will follow up with his spine surgeon. Plan of Care PT Services Indicated No
== END 2025-07-22 20:00 | disposition home or self-care (01) ==
LOC: CHSPT 13:06
PROVIDERS: PCP Internal Medicine; Visit Provider Internal Medicine
DX: M54.50 Low back pain, unspecified (principal); M25.552 Pain in left hip
CPT/HCPCS: 97014; 97110; 97112; 97140; 97161; 97750; G0283